=== PATIENT | male | born 1955 | race Caucasian/White ===

== ENCOUNTER 2023-01-15 11:49 | Outpatient (CLI) | payer MEDICARE, SELFPAY ==
[2023-01-15 13:40] LABS: Basophils Percent Auto 0.7 % (0.2-1.2); Eosinophils Percent Auto 0.7 % (0-4.4); Hematocrit 46.7 % (42.0-52.0); Hemoglobin 15.9 g/dL (14.0-18.0); Immature Granulocyte Absolute 0.02 K/mm3 (0.00-0.031); Immature Granulocyte Percent A 0.4 % (0-0.5); Lymphocytes Absolute Auto 1.36 K/mm3 (0.9-3.2); Lymphocytes Percent Auto 25.1 % (18.3-44.2); Mean Corpuscular Hemoglobin 34.4 pg (26-34); Mean Corpuscular Volume 101.1 fl (80-100); Mean Platelet Volume 9.4 fl (7.4-10.4); Monocytes Absolute Auto 0.6 K/mm3 (0.1-0.6); Monocytes Percent Auto 10.7 % (2.6-8.5); Neutrophils Absolute Auto 3.4 K/mm3 (1.3-6.7); Neutrophils Percent Auto 62.4 % (45.5-73.1); Platelet Count Result 155 k/mm3 (150-375); Red Blood Count 4.62 M/mm3 (4.6-6.20); Red Cell Distribution Width 14.2 % (11.5-14.5); White Blood Count 5.4 K/mm3 (4.5-10.0)
[2023-01-15 13:52] LABS: Albumin Level 4.6 g/dL (3.5-5.1); Anion Gap 5 mmol/L (8-16); Blood Urea Nitrogen 18 mg/dL (9-20); Calcium 9.3 mg/dL (8.4-10.2); Carbon Dioxide 29 mmol/L (22-30); Chloride 102 mmol/L (98-107); Estimated Glomerular Filt Rate > 60; Glucose 93 mg/dL (65-110); Hemoglobin A1C 5.7 % (<5.7); Potassium 4.3 mmol/L (3.4-5.0); Sodium 136 mmol/L (137-145)
[2023-01-15 14:42] LABS: Urine Cotinine NEGATIVE
== END 2023-01-15 11:50 | disposition home or self-care (01) ==
LOC: ANHSURGERY 11:55
PROVIDERS: PCP Nurse Practitioner Adult Health; Visit Provider Orthopaedic Surgery
DX: M16.11 Unilateral primary osteoarthritis, right hip (principal); Z01.818 Encounter for other preprocedural examination
CPT/HCPCS: 80048; 80307; 82040; 83036; 85025; 87081

== ENCOUNTER 2023-02-05 01:41 | Day surgery (SDC) | payer MEDICARE, SELFPAY ==
[2023-01-15 12:02] VITALS: BMI 35.0
--- NOTE | 2023-01-15 12:31 | PC.NURSE ---
Addendum entered by Robyn Nava RN 02/01/23 14:53: PT INSTRUCTED TO TAKE NEWLY PRESCRIBED MEDICATIONS, ISOSORBIDE AND METOPROLOL, THE MORNING OF SURGERY WITH A SMALL SIP OF WATER. Original Note: Report to the Outpatient Waiting Room, entrance under the green pavilion located off [facility], at time __0600 on date __02/05/23 . Planned Procedure Time: _0730 . Time changes happen often and if your time is changed the preop area will call you the afternoon before. - You and your visitor will be asked to self-screen and do not enter if you have any COVID symptoms. - A mask is optional within the hospital at this time. Patients may have clear liquids (water, carbonated beverages, clear teas, apple juice) until 3 hours prior to surgery with a maximum of 20 ounces. - No food from midnight until time of surgery - Infants may have breast milk until 4 hours before surgery, formula 6 hours prior to surgery. - Children will be allowed to drink immediately following surgery. If applicable, please bring a bottle or sippy cup to assist with drinking. Juice, water, soda, and popsicles are readily available. For infants on formula, please bring formula the day of surgery. Pacifiers are allowed. Take the following medications with a SIP of water the morning of surgery: __NONE DO NOT STOP ANY OF YOUR OTHER PRESCRIPTION MEDICATIONS PRIOR TO SURGERY ?EXCEPT THE FOLLOWING Medications to discontinue per physician PT STATES ___HOLD TRULICITY, ASPIRIN AND DICLOFENAC 7 DAYS PRE OP PER DR BLOUNT.LAST DOSE 01/28/23 . HOLD VITAMIND AND SUPPLEMENTS__7 DAYS PRE OP PT STATES PER DR BLOUNT.LAST DOSE 01/28/23 Please no make-up, nail bermudian, hairspray, perfume, deodorant, or body powder the day of surgery. No jewelry (including any body piercings) or valuables the day of surgery, leave them at home. Please take a shower or bath the night before, or the morning of, surgery with an antibacterial soap. Wear comfortable, loose fitting clothing. Children are encouraged to wear pajamas. - Jewelry must be removed prior to entering the operating room. Rings and piercings that are not removed may be cut off. - The hospital will not accept responsibility for valuables. - Please leave all valuables, including medications, at home the day of surgery. If you are going home after surgery, a licensed hyster driver must drive you home. - NO public transportation without another adult if you receive anesthesia. - We recommend that an adult stay with you for 24 hours following discharge. - We also recommend that you do not drive, make important decision, drink alcoholic beverages, or take any drugs that were not prescribed by your health care provider for at least 24 hours after your discharge time. For Pediatric surgeries, we recommend two adults accompany the child home. Follow any additional instructions given to you from your surgeon. If you or anyone in your household have experienced Covid symptoms in the past week, please notify your surgeon or the nurse liaison at the phone number below for possible testing. VERBAL AND WRITTEN instructions given to ___PATIENT and asked if any additional questions and then verbalized understanding. Patient advised to call surgeon office or pre surgery nurse liaison [phone] if any additional questions.
[2023-01-15 12:52] VITALS: BP 127/84; PULSE 93; RESP 18; TEMP 37.1; O2SAT 97
--- NOTE | 2023-02-01 14:52 | PC.NURSE ---
Pt called to report two new prescription medications. Home medication list updated. Pt instructed to take isosorbide and metoprolol the morning of surgery with a small sip of water. Pt denies any further questions at this time.
--- NOTE | 2023-02-02 08:41 | PM.IMHP ---
H&P: HPI History of Present Illness Date/Time: 02/02/23 08:41 Chief Complaint: Right hip DJD Narrative: 67-year-old male patient of Dr. Rey who presents today for he right anterior total hip arthroplasty. Patient has been having symptoms in his hip for last year. This point he has severe osteoarthritis with collapse of the femoral head. He has had 2 cortisone injections in the hip the last 1 was in October of this year on the . Patient is also been on diclofenac 75 mg b.i.d.. He has not had improvement from nonsurgical treatment of the hip. He did have blood work done to rule out infection in the hip. His sed rate CRP was normal. At this point patient is having severe pain in the right hip particularly in the groin and the anterior lateral hip. He has rather severe pain with weight-bearing and most daily activities. He has reached a point where he feels he is ready to proceed with total hip arthroplasty at this point. Review of Systems Review of Systems: All systems reviewed & are unremarkable except as noted in HPI and below PMFSH Past Medical History Medical History (Updated 01/24/23 @ 11:00 by Celeste Ibanez APRN) Diabetes HTN (hypertension) Family History Family History (Updated 01/24/23 @ 10:19 by Renate Lazo MA) Father Diabetes mellitus Heart disease Mother Diabetes mellitus Heart disease Sibling Diabetes mellitus Heart disease Social History Social History (Updated 01/24/23 @ 10:22 by Renate Lazo MA) 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 2022 Alcohol intake: current Drinks per week: 12 Alcohol use details: varies Substance use: never Lack of Transportation: No Lack of Food: Never True Current Housing: I Have Housing Concerned About Future Housing: No Difficulty Paying Gas/Electric Bills: No Difficulty Paying for Meds: No Currently Unemployed: No Education: Associate Degree Difficulty w/ Childcare or Family Care: No Living arrangements: with family Occupation/Education: retired Gender identity (if verbalized by the patient): Male Spiritual care concerns: No Agree to blood products: Yes Meds Home Medications and Allergies Home Medications Medication Instructions Recorded Confirmed Type cholecalciferol (vitamin D3) 100 100 mcg PO DAILY 01/15/23 01/15/23 History mcg (4,000 unit) tablet cyanocobalamin (vitamin B-12) 1,000 mcg PO DAILY 01/15/23 01/15/23 History 1,000 mcg tablet dapagliflozin propanediol 5 mg 5 mg PO DAILY 01/15/23 01/15/23 History tablet (Farxiga) diclofenac sodium 75 mg 75 mg PO BID 01/15/23 01/15/23 History tablet,delayed release dulaglutide 1.5 mg/0.5 mL 1.5 mg subcut WEEKLY 01/15/23 01/15/23 History subcutaneous pen injector ([facility] [place]) lisinopril 20 mg tablet 20 mg PO DAILY 01/15/23 01/15/23 History rosuvastatin 20 mg tablet 20 mg PO HS 01/15/23 01/15/23 History testosterone cypionate 200 mg/mL 200 mg IM [id number] 01/15/23 01/15/23 History intramuscular oil isosorbide mononitrate 30 mg 30 mg PO DAILY 02/01/23 02/01/23 History tablet,extended release 24 hr metoprolol tartrate 50 mg tablet 50 mg PO BID 02/01/23 02/01/23 History Allergies Allergy/AdvReac Type Severity Reaction Status Date / Time No Known Allergies Allergy Unverified 01/24/23 10:40 Exam Narrative: 67-year-old male alert pleasant. He is 5 ft 7 239 lb. He walks with a [id number] limp. Skin around the hip and groin crease are normal. His right hip flexes to 110 internal rotation is 0 external rotation to 30. He has anterior lateral groin pain with range of motion. Stinchfield maneuver causes him anterior lateral hip pain. He has normal abduction straight l
[2023-02-05] VITALS (15 sets, daily range): BP systolic 105–124; BP diastolic 56–77; PULSE 68–81; RESP 12–20; TEMP 36.3–36.8; O2SAT 96–100
--- NOTE | ~2023-02-05 | XR_ITS ---
EXAMINATION: XR hip RT 1V w AP pelvis DATE: 02/05/2023 14:52 INDICATION: Right total hip arthroplasty TECHNIQUE: 2 views right hip FINDINGS: There is a right total hip arthroplasty in expected position. Subcutaneous gas with soft t issue swelling are consistent with recent surgery. IMPRESSION: 1. Recent right total hip arthroplasty. Reviewed, dictated and finalized at location B. [facility]
--- NOTE | ~2023-02-05 | XR_ITS ---
EXAMINATION: XR surgery orthopedic DATE: 02/05/2023 11:35 INDICATION: Anterior approach total right hip arthroplasty. TECHNIQUE: A single intraoperative fluoroscopic view of the right hip was obtained. I was not present . Fluoroscopy exposure time was 67 seconds. COMPARISON: None. FINDINGS: There is a total right hip arthroplasty in near-anatomic alignment. No fracture. IMPRESSION: 1. Total right hip arthroplasty in near-anatomic alignment. Reviewed, dictated and finalized at location E. [employer]
[2023-02-05] MEDS: TRANEXAMIC ACID 1,000MG/ISO100 1,000 MG/100 ML BAG 200 MG IVPB (05:07)
--- NOTE | 2023-02-05 06:44 | WPDANESEPPF ---
Anes - Initial Pre Proc Eval Procedure: Operation Date: 02/05/23 07:30 Proposed Procedures p Right Total Hip Arthroplasty Anterior Approach - Ryan Gandara MD Date/Time: 02/05/23 06:44 Surgeon: Ryan Gandara MD Pre Op Diagnosis: right hip oa Patient Data Age: 67 Gender: M Height: 1.73 m Weight: 104.5 kg Last Vital Signs Temp 37.1 C 01/15/23 12:52 Pulse 93 01/15/23 12:52 Resp 18 01/15/23 12:52 BP 127/84 01/15/23 12:52 Pulse Ox 97 01/15/23 12:52 O2 Del Method Room Air 01/15/23 12:52 Allergies Allergy/AdvReac Type Severity Reaction Status Date / Time No Known Allergies Allergy Unverified 01/24/23 10:40 Home Medications Medication Instructions Recorded Confirmed Type cholecalciferol (vitamin D3) 100 100 mcg PO DAILY 01/15/23 01/15/23 History mcg (4,000 unit) tablet cyanocobalamin (vitamin B-12) 1,000 mcg PO DAILY 01/15/23 01/15/23 History 1,000 mcg tablet dapagliflozin propanediol 5 mg 5 mg PO DAILY 01/15/23 02/05/23 History tablet (Farxiga) diclofenac sodium 75 mg 75 mg PO BID 01/15/23 01/15/23 History tablet,delayed release dulaglutide 1.5 mg/0.5 mL 1.5 mg subcut WEEKLY 01/15/23 01/15/23 History subcutaneous pen injector (Trulicity) lisinopril 20 mg tablet 20 mg PO DAILY 01/15/23 02/05/23 History rosuvastatin 20 mg tablet 20 mg PO HS 01/15/23 02/05/23 History testosterone cypionate 200 mg/mL 200 mg IM [id number] 01/15/23 02/05/23 History intramuscular oil isosorbide mononitrate 30 mg 30 mg PO DAILY 02/01/23 02/05/23 History tablet,extended release 24 hr metoprolol tartrate 50 mg tablet 50 mg PO BID 02/01/23 02/05/23 History Patient hx anesthesia problems: none Family hx anesthesia problems: none Results Review: All pre-operative results and documents have been reviewed as part of the pre-operative evaluation. [facility] Past Medical History Medical History (Updated 02/05/23 @ 06:45 by Fred Ellington DO) Diabetes HTN (hypertension) Hyperlipidemia LAURA (obstructive sleep apnea) Family History Family History (Updated 01/24/23 @ 10:19 by Renate Lazo MA) Father Diabetes mellitus Heart disease Mother Diabetes mellitus Heart disease Sibling Diabetes mellitus Heart disease Social History Social History (Updated 01/24/23 @ 10:22 by Renate Lazo MA) 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 2022 Alcohol intake: current Drinks per week: 12 Alcohol use details: varies Substance use: never Lack of Transportation: No Lack of Food: Never True Current Housing: I Have Housing Concerned About Future Housing: No Difficulty Paying Gas/Electric Bills: No Difficulty Paying for Meds: No Currently Unemployed: No Education: Associate Degree Difficulty w/ Childcare or Family Care: No Living arrangements: with family Occupation/Education: retired Gender identity (if verbalized by the patient): Male Spiritual care concerns: No Agree to blood products: Yes Anes - Eval Final PreProcedure Day of Procedure 02/05/23 06:44 Patient weight: obese Heart: regular rate and rhythm Lungs: clear to auscultation Airway: Mallampati scale class II Neurological: alert and oriented Last oral intake: >/= 8 hours ASA classification: III Emergent: no Anesthetic plan: proceed Anesthesia type and monitoring: general ETT and standard monitoring Results Review: All pre-operative results and documents have been reviewed as part of the pre-operative evaluation. Informed Consent: The patient's anesthetic plan and its attendant risks and benefits were discussed with the patient/family/POA. Questions were solicited and answers provided to the satisfaction of the patient
[2023-02-05] MEDS: LACTATED RINGERS 1,000 ML 30 ML IV CONT ×2 (07:00→12:02)
[2023-02-05] MEDS: ACETAMINOPHEN 500 MG TABLET 1000 MG PO ×2 (07:06→17:54)
--- NOTE | 2023-02-05 07:10 | WPDHPUPDATE1 ---
History and Physical Update Update Date/Time: 02/05/23 07:10 History and Physical has been reviewed, including an updated exam of the patient. There are NO changes in the patient's condition. Risks, benefits, and alternatives have been discussed and questions answered. Patient agrees to proceed with procedure.
[2023-02-05 07:14] LABS: Glucose Point of Care 107 mg/dl (65-105)
[2023-02-05] MEDS: ceFAZolin 2 GM/D5W 50 ML 2 GM/50 ML BAG IVPB (07:37)
[2023-02-05] MEDS: ceFAZolin SODIUM 1 GM VIAL 3 GM (08:36)
[2023-02-05] MEDS: TRANEXAMIC ACID 1,000 MG/10 ML AMPUL 1000 MG IV PUSH (11:07)
[2023-02-05] MEDS: ceFAZolin SODIUM 1 GM VIAL 2 GM IV PUSH (11:09)
[2023-02-05] MEDS: KETOROLAC 15 MG/ML VIAL (*BKC) IV PUSH ×2 (11:16→18:47)
--- NOTE | 2023-02-05 11:25 | SUR.OPER ---
cell saver: 375 mls own blood returned to patient
--- NOTE | 2023-02-05 11:57 | W.PM.PROC2 ---
Procedure Note - Detailed Date of Procedure 02/05/23 Pre-op Diagnosis right hip oa, OBESITY BMI of 35 Post-op Diagnosis Same Procedure Performed Direct anterior approach right total hip arthroplasty Surgeon Ryan Gandara MD Environmental Health Inspector Gilberto Anesthesia General Description of Procedure Patient was brought to the operating room and general anesthesia was administered. He received 2 g of Ancef weight based vancomycin and 1 g of TXA. The feet were padded boots applied SCDs applied the calves which are running during the procedure and he was transferred to the [facility]. He had a BMI of greater than 35 which added significant difficulty with the procedure as his obesity was truncal abdominal. This added estimated 45 minutes of time to the procedure due to the added difficulty with exposure. We used 3 in silk tape on the abdomen to gently retract the abdominal pannus. The right hip was prepped draped usual fashion. 10 cm longitudinal incision was made. Dissection was carried down to the fascia of the tensor fascia amado which was longitudinally incised. Interval between TFL and rectus femoris developed. Crossing vessels of ascending lateral femoral circumflex vessels were ligated with suture divided. Retractor was placed anterior capsule hip abducted internally rotated and the gluteus minimus elevated off the lateral capsule. Inverted T capsulotomy was performed femoral neck osteotomy made according to preoperative templating. The femoral head measured 49 mm diameter and was severely worn. S stem was exposed residual labrum excised. The hip was externally rotated and extended. The lateral portion of the posterior capsular flap was excised for exposure and interval between conjoined tendon and piriformis was incised which allowed the piriformis to flipped this was left attached. With the leg back and horizontal position external rotation and traction the acetabulum was prepared. We medialized with a 42 Reamer and reamed up to 51 mm and we could see that the 52 was the proper size. We lightly reamed with the 52 Reamer a 52 trial was snug and fit nicely and fully seated. We chose the 52 mm pinnacle cup which was fully seated with a tight fit. This was at 40? of abduction and anteversion matching his anatomy. A single screw was placed in the ilium was obtained excellent purchase and the 36 inner diameter polyethylene liner fully seated. Anterior acetabular osteophyte was removed this time. The leg was externally rotated extended and we broached up to a size 6. We did not use the table hook which seemed to reduce exposure rather than enhancing it. We trialed. With the size 6 and the +5 head standard offset, the hip seemed to lose and leg lengths suggested we were about a mm long. Provisional planing of the neck was performed. There was a little bit of wiggle on the size 6 broach with torsional stress and we were able to seat the size 7 which was tight. On trialing we trialed with the 8.5 neck and this seemed to lengthen his leg about 4 mm longer than the other side according to the line drawn across the obturator's and the ischial tuberosities on fluoro. We tried the high offset neck with the 1.5 which shortened the construct 4.4 mm and added 3.6 mm of offset and this gave equal leg lengths and offset look more appropriate on fluoro and soft tissue tension was appropriate. He had ample Shuck but it was quite stable. The calcar planing was completed and we impacted the size 7 Actis high offset stem which was difficult to seat the last few mm but did finally seat. There were no cracks in the calcar. We trialed again with the 1.5 and this was appropriate. The ceramic 1.5 x 36 mm head was impacted onto the clean and dried trunnion after thorough irrigation of the wound with antibiotic solution. Hip reduced stability reconfirmed. Capsular flaps were repaired superiorly with 2. Vicryl. Hemostasis was achieved. Total EBL was estimated at 900 cc he steffany
--- NOTE | 2023-02-05 12:08 | PM.OP ---
Procedure Note - Brief Procedure Note - Brief Date of procedure: 02/05/23 right hip oa Procedure performed: Right anterior total hip arthroplasty Surgeon: BALJEET Lombardi Findings: 67-year-old male who underwent right anterior total hip arthroplasty on 02/05. I was involved in the procedure including positioning the patient on the OR table and 1st assisting through the time surgery. Total time spent was 4-1/2 hours
[2023-02-05 12:26] LABS: Glucose Point of Care 192 mg/dl (65-105)
[2023-02-05] MEDS: fentaNYL CITRATE INJ (*CRX) 100 MCG/2 ML VIAL 25 MCG IV PUSH ×4 (12:40→13:00)
--- NOTE | 2023-02-05 14:14 | ADMGEN ---
This patient, Adal Talbot, was admitted to Medical Room 253-01. Patient/family oriented to hospital policies and general routines including ID bracelet, bed and alarms, visiting hours, pain management, procedures, bathroom and other care routines, personal items, smoking policy, room service/diet, and visiting hours. Information on how to activate the Rapid Response Team has been discussed. Patient/Family are encouraged to report perceived risks to care and to ask questions if they do not understand what they are told or what they should do.
[2023-02-05] MEDS: SODIUM CHLORIDE 0.9% IV 1,000 ML 125 ML IV CONT (14:52)
[2023-02-05] MEDS: ASPIRIN 81 MG CHEWABLE TABLET PO (14:53)
--- NOTE | 2023-02-05 16:43 | PM.IMCN ---
Assessment and Plan Assessment and plan (1) Osteoarthritis of right hip: Qualifiers: Osteoarthritis type: primary Qualified Code(s): M16.11 - Unilateral primary osteoarthritis, right hip Code(s): M16.11 - Unilateral primary osteoarthritis, right hip Status: Acute (2) Diabetes: Qualifiers: Diabetes mellitus complication status: without complication Diabetes mellitus retirement insulin use: without retirement use Diabetes mellitus type: type 2 Qualified Code(s): E11.9 - Type 2 diabetes mellitus without complications Code(s): E11.9 - Type 2 diabetes mellitus without complications Status: Acute (3) HTN (hypertension): Qualifiers: Hypertension type: primary hypertension Qualified Code(s): I10 - Essential (primary) hypertension Code(s): I10 - Essential (primary) hypertension Status: Acute (4) Hyperlipidemia: Qualifiers: Hyperlipidemia type: unspecified Qualified Code(s): E78.5 - Hyperlipidemia, unspecified Code(s): E78.5 - Hyperlipidemia, unspecified Status: Acute Plan Problem List 1. osteoarthritis of right hip s/p right anterior total hip arthroplasty, 02/05 continue management with orthopedic team 2. diabetes hypoglycemia protocol POC blood glucose ACHS home medication resumed/held - Farxiga and Trulicity, may take home Trulicity once pharmacy verifies. correct regimen ordered - low dose TIDWM and HS A1C 5.7 on 01/15/23 3. HTN imdur and metoprolol continued lisinopril held, assess tomorrow for reinitiation. BP currently borderline low. continue to monitor BP 4. hyperlipidemia continue home rosuvastatin Home Meds/Chronic Conditions - held 5 in B12, diclofenac, lisinopril, testosterone IM Diet: regular GI Prophylaxis: famotidine DVT Prophylaxis: SCDs, start Eliquis tomorrow. Lines: pIV Code Status: Full Code Billing/Codin, consult HPI Date of Consult Consult date: 02/05/23 Requesting Physician: Ryan Gandara MD Primary Care Provider: Celeste Ibanez APRN Consult Narrative Reason for consult: Medical Managment Narrative: Adal Talbot is a 67 year old male presented here for R anterior total hip arthroplasty with PMH of DM, HTN, and dyslipidemia. Patient had right anterior total hip arthroplasty performed today 02 05. Patient had severe osteoarthritis in affected hip with collapse femoral head. Conservative management was attempted: two cortisone injections and daily diclofenac. patient reports the diclofenac gave partial resolution of pain, but despite the medications the pain continued with weight-bearing exercises and ADLs. He then elected to proceed with surgical management, no immediate post-operative complications. he reports that he has had drastic improvement in his total cholesterol and A1c in the last year. Most recent A1c was 5.7 and his total cholesterol has been reduced to 179. Currently on Farxiga and Trulicity. He has been able to lose 60 lb in the last year between a drastic diet change and the Trulicity. He reports no complications with his current medication regimen. No other complaints. Review of Systems Review of Systems: All systems reviewed & are unremarkable except as noted in HPI and below PMFSH Past Medical History Medical History Diabetes HTN (hypertension) Hyperlipidemia LAURA (obstructive sleep apnea) Surgical History Surgical History History of appendectomy History of arthroscopy of left knee History of carpal tunnel release of both wrists Family History Family History Father Diabetes mellitus Heart disease Mother Diabetes mellitus Heart disease Sibling Diabetes mellitus Heart disease Social History Social History (Updated 02/05/23 @
[2023-02-05 17:51] LABS: Glucose Point of Care 240 mg/dl (65-105)
[2023-02-05] MEDS: SENNA/DOCUSATE SODIUM TABLET 2 TAB PO (17:53)
[2023-02-05] MEDS: ceFAZolin 1 GM/NS 50 ML 1 GM/50 ML BAG IVPB (17:54)
[2023-02-05] MEDS: oxyCODONE HCL (*CRX) 5 MG TAB IR PO ×2 (17:54→20:28)
[2023-02-05] MEDS: INSULIN ASPART (*BKC) 100 UNITS/ML SUB-Q (17:59)
[2023-02-05] MEDS: VANCOMYCIN 1,000 MG/NS 250 ML 1,000 MG/250 ML BAG 250 MG IVPB (18:52)
[2023-02-05] MEDS: FAMOTIDINE 20 MG TABLET PO (20:28)
[2023-02-05] MEDS: METOPROLOL TARTRATE 50 MG TAB PO (20:28)
[2023-02-05] MEDS: ROSUVASTATIN 20 MG TABLET PO (20:28)
[2023-02-05 20:52] LABS: Glucose Point of Care 178 mg/dl (65-105)
[2023-02-06] MEDS: ACETAMINOPHEN 500 MG TABLET 1000 MG PO ×3 (00:01→11:56)
[2023-02-06] MEDS: oxyCODONE HCL (*CRX) 5 MG TAB IR PO ×4 (00:01→13:10)
[2023-02-06] MEDS: KETOROLAC 15 MG/ML VIAL (*BKC) IV PUSH (00:01)
[2023-02-06] MEDS: ceFAZolin 1 GM/NS 50 ML 1 GM/50 ML BAG IVPB ×2 (00:02→10:20)
[2023-02-06 02:30] VITALS: PULSE 75; O2SAT 98
[2023-02-06 03:22] VITALS: BP 90/42; PULSE 70; RESP 18; TEMP 36.6; O2SAT 95
[2023-02-06 06:15] LABS: Basophils Percent Auto 0.3 % (0.2-1.2); Eosinophils Percent Auto 0.6 % (0-4.4); Hematocrit 35.7 % (42.0-52.0); Immature Granulocyte Absolute 0.04 K/mm3 (0.00-0.031); Immature Granulocyte Percent A 0.6 % (0-0.5); Lymphocytes Absolute Auto 0.94 K/mm3 (0.9-3.2); Lymphocytes Percent Auto 13.6 % (18.3-44.2); Mean Corpuscular HGB Conc 33.6 g/dl (32-36); Mean Corpuscular Hemoglobin 35.6 pg (26-34); Mean Corpuscular Volume 105.9 fl (80-100); Mean Platelet Volume 9.7 fl (7.4-10.4); Monocytes Absolute Auto 0.8 K/mm3 (0.1-0.6); Monocytes Percent Auto 10.9 % (2.6-8.5); Neutrophils Absolute Auto 5.1 K/mm3 (1.3-6.7); Platelet Count Result 123 k/mm3 (150-375); Red Blood Count 3.37 M/mm3 (4.6-6.20); Red Cell Distribution Width 14.3 % (11.5-14.5); White Blood Count 6.9 K/mm3 (4.5-10.0)
[2023-02-06 06:21] LABS: Anion Gap 8 mmol/L (8-16); Blood Urea Nitrogen 29 mg/dL (9-20); Calcium 7.7 mg/dL (8.4-10.2); Carbon Dioxide 24 mmol/L (22-30); Chloride 104 mmol/L (98-107); Estimated CRCL calculation 83 ml/min; Estimated Glomerular Filt Rate > 60; Glucose 150 mg/dL (65-110); Potassium 4.1 mmol/L (3.4-5.0); Sodium 136 mmol/L (137-145)
--- NOTE | 2023-02-06 07:21 | PM.IMPN ---
Progress Note: A&P Assessment and Plan (1) Osteoarthritis of right hip: Qualifiers: Osteoarthritis type: primary Qualified Code(s): M16.11 - Unilateral primary osteoarthritis, right hip Code(s): M16.11 - Unilateral primary osteoarthritis, right hip Status: Acute Assessment and Plan: 1. osteoarthritis of right hip s/p right anterior total hip arthroplasty, 02/05 continue management with orthopedic team (2) Diabetes: Qualifiers: Diabetes mellitus type: type 2 Diabetes mellitus skilled nursing insulin use: without skilled nursing use Diabetes mellitus complication status: without complication Qualified Code(s): E11.9 - Type 2 diabetes mellitus without complications Code(s): E11.9 - Type 2 diabetes mellitus without complications Status: Acute Assessment and Plan: 2. diabetes hypoglycemia protocol POC blood glucose ACHS home medication resumed/held - Farxiga and Trulicity, may take home Trulicity once pharmacy verifies. correct regimen ordered - low dose TIDWM and HS A1C 5.7 on 01/15/2302/06: Blood glucose has been ranging 190-240 prior to starting SSI. Will see how his blood sugars do today. May need lantus at HS while inpatient. (3) HTN (hypertension): Qualifiers: Hypertension type: primary hypertension Qualified Code(s): I10 - Essential (primary) hypertension Code(s): I10 - Essential (primary) hypertension Status: Acute Assessment and Plan: . HTN imdur and metoprolol continued lisinopril held, assess tomorrow for reinitiation. BP currently borderline low. continue to monitor BP 02/05: Blood pressures are still borderline low. BP this morning 90/42, HR 70. Continue to hold lisinopril. (4) Hyperlipidemia: Qualifiers: Hyperlipidemia type: unspecified Qualified Code(s): E78.5 - Hyperlipidemia, unspecified Code(s): E78.5 - Hyperlipidemia, unspecified Status: Acute Assessment and Plan: 4. hyperlipidemia continue home rosuvastatin Plan Diet: regular GI Prophylaxis: famotidine DVT Prophylaxis: SCDs, start Eliquis tomorrow. Lines: pIV Code Status: Full Code Subjective Date/time seen: 02/06/23 07:21 Interval history: HPI obtained from the chart, Adal Talbot is a 67 year old male presented here for R anterior total hip arthroplasty with PMH of DM, HTN, and dyslipidemia. Patient had right anterior total hip arthroplasty performed today 02 05.? Patient had severe osteoarthritis in affected hip with collapse femoral head.? Conservative management was attempted: two cortisone injections and daily diclofenac.? patient reports the diclofenac gave partial resolution of pain, but despite the medications the pain continued with weight-bearing exercises and ADLs. ? He then elected to proceed with surgical management, no immediate post-operative complications. he reports that he has had drastic improvement in his total cholesterol and A1c in the last year.? Most recent A1c was 5.7 and his total cholesterol has been reduced to 179.? Currently on Farxiga and Trulicity. ? He has been able to lose 60 lb in the last year between a drastic diet change and the Trulicity.? He reports no complications with his current medication regimen. No other complaints. Review of Systems Review of Systems: All systems reviewed & are unremarkable except as noted in HPI and below Exam Narrative: General: well appearing, well developed, well nourished, appears stated age. HEENT: normocephalic, atraumatic. Mucous membranes moist. EOMI, PERRLA, bilateral sclera anicteric, no conjunctival injection. Neck supple without JVD, lymphadenopathy, or bruit. Respiratory: clear to ascultation bilaterally. No rales/rhonic/wheezes. Cardiovascular: Regular rate and rhythm, normal S1-S2 upon ascultation. No murmurs, rubs, or clicks. PMI is nondisplaced, capillary re-fill less than 3 second. Abdomen: Soft, flat, no pulsa
--- NOTE | 2023-02-06 07:32 | PM.PNORT ---
Progress Note: A&P Assessment and Plan (1) Status post total hip replacement, right: Code(s): Z96.641 - Presence of right artificial hip joint Status: Acute Plan Patient is postop day 1 status post right total hip arthroplasty. He is doing well. He will be discharged home later today good condition we discussed in detail today elevating his legs above his heart following hip precautions we went over his postoperative medications and we talked about the fact that he needs to get up and move around every hour so during the day use a walker for support we discussed weight-bearing status and follow up with Dr. Gandara as instructed. He is to call the office immediately for any problems difficulties or questions. The patient voiced understanding and agrees with the above plan. See discharge orders and discharge summary for complete plan. Subjective Subjective Date/Time Seen: 02/06/23 07:32 Interval history: Postop day 1 status post right total hip arthroplasty doing well feeling well. Has no complaints postoperative complications. Pain is well controlled. He was able to get up and ambulate and therapy last night did well. He feels as though he is ready for discharge to home later today. Review of Systems Review of Systems: Ten point review of systems negative Exam Narrative: Vital signs are stable he is afebrile neurovascular the patient is intact wound is clean and dry calves are benign. He is alert oriented x3. Normal mood and affect. Tolerating p.o. well. No other complaints. Objective Data Vital Signs Vital Signs: Vital Signs - 24 hr 02/05/23 12:02 02/05/23 12:15 02/05/23 12:30 Temperature 36.7 C Pulse Rate 81 75 70 Respiratory Rate 20 18 12 Blood Pressure 113/60 121/77 111/68 Pulse Oximetry 97 97 97 Oxygen Delivery Simple Face Mask Room Air Room Air Oxygen Flow Rate 6 02/05/23 12:45 02/05/23 13:00 02/05/23 13:14 Temperature Pulse Rate 73 72 68 Respiratory Rate 12 12 12 Blood Pressure 119/63 117/67 117/67 Pulse Oximetry 98 99 99 Oxygen Delivery Room Air Room Air Nasal Cannula Oxygen Flow Rate 2 02/05/23 14:57 02/05/23 14:15 02/05/23 13:37 Temperature 36.3 C L Pulse Rate 69 Respiratory Rate 16 Blood Pressure 114/63 Pulse Oximetry 100 Oxygen Delivery Room Air Room Air Oxygen Flow Rate 02/05/23 13:52 02/05/23 14:22 02/05/23 15:22 Temperature 36.6 C 36.6 C 36.4 C Pulse Rate 71 68 72 Respiratory Rate 16 16 16 Blood Pressure 119/56 L 124/61 118/65 Pulse Oximetry 99 97 97 Oxygen Delivery Oxygen Flow Rate 02/05/23 19:22 02/05/23 20:28 02/05/23 23:22 Temperature 36.8 C 36.4 C L Pulse Rate 81 80 77 Respiratory Rate 18 18 Blood Pressure 107/57 L 105/60 Pulse Oximetry 97 96 Oxygen Delivery Oxygen Flow Rate 02/05/23 22:30 02/06/23 02:30 02/06/23 03:22 Temperature 36.6 C Pulse Rate 80 75 70 Respiratory Rate 18 Blood Pressure 90/42 L Pulse Oximetry 97 98 95 Oxygen Delivery Oxygen Flow Rate Intake/Output Intake/Output: Intake & Output 02/03/23 02/04/23 02/05/23 02/06/23 23:59 23:59 23:59 23:59 Intake Total 1490 50 Output Total 10 150 Balance 1480 -100 Meds/Results Medications: Active Medications Generic Name Dose Route Start Last Admin Trade Name Freq PRN Reason Stop Dose Admin Acetaminophen 1,000 mg 02/05/23 18:00 02/06/23 05:08 Acetaminophen 500 Mg Tablet PO 1,000 mg Q6HR [facility] Administration Apixaban 2.5 mg 02/06/23 09:00 Apixaban 2.5 Mg Tablet PO 03/12/23 21:01 Q12HR [facility] Aspirin 81 mg 02/06/23 08:00 Aspirin 81 Mg Chewable Tablet PO DAILY@0800 [facility] Cefdinir 300 mg 02/06/23 14:00 Cefdinir 300 Mg Capsule PO Q12HR [facility] Celecoxib 200 mg 02/06/23 09:00 Celecoxib 200 Mg Capsule PO DAILY [facility] Dextrose 12.5 gm 02/05/23 16:55 Dextrose 50% 25 Gm/50 Ml Syringe IV PUSH PRN PRN Hypoglycemia Protocol Empagl
[2023-02-06 08:21] VITALS: BP 95/58; PULSE 70; O2SAT 95
[2023-02-06] MEDS: CHOLECALCIFEROL 1,000 UNITS TABLET 1000 UNITS PO (08:23)
[2023-02-06] MEDS: EMPAGLIFLOZIN 10 MG TABLET BY MOUTH (08:23)
[2023-02-06] MEDS: CELECOXIB 200 MG CAPSULE PO (08:23)
[2023-02-06] MEDS: FAMOTIDINE 20 MG TABLET PO (08:23)
[2023-02-06] MEDS: APIXABAN 2.5 MG TABLET PO (08:23)
[2023-02-06] MEDS: VANCOMYCIN 1,000 MG/NS 250 ML 1,000 MG/250 ML BAG 250 MG IVPB (08:24)
[2023-02-06] MEDS: ISOSORBIDE MONONITRATE 30 MG TAB.ER.24H PO (08:24)
[2023-02-06] MEDS: ASPIRIN 81 MG CHEWABLE TABLET PO (08:24)
[2023-02-06] MEDS: SENNA/DOCUSATE SODIUM TABLET 2 TAB PO (08:24)
[2023-02-06] MEDS: polyethylene glycoL 3350 17 GM POWD.PACK PO (08:25)
[2023-02-06 08:42] LABS: Glucose Point of Care 157 mg/dl (65-105)
--- NOTE | 2023-02-06 09:19 | PM.DS ---
DS: Admitting Diagnosis Discharge Date discharge date 02/06/2023 Admitting Diagnosis admitting diagnosis severe primary osteoarthritis right hip joint discharge diagnosis same status post right total hip arthroplasty DS: Summary Hospital Course Hospital Course: the patient was admitted on 02/05/2023 status post right total hip arthroplasty performed by Dr. Gandara. postoperatively the patient was stable had no complications from his surgery. He was up in the chair in the evening ambulated with a walker with the therapist. Tolerated p.o. well pain was well controlled overnight. Postop day 1 he was doing quite well no postoperative complications noted. Vital signs were stable he was afebrile neurovascularly intact wound clean and dry calves benign. He was alert oriented x3. Normal mood and affect. The patient was up ambulating independently with a walker. He will be discharged today, he was instructed to keep his leg elevated above his heart as much as possible not to sit in the chair with his leg hanging down. He was to be up every hour ambulating with a walker weight-bearing as tolerated and pump his calves and feet hourly to prevent DVT. He was see Dr. Gandara back in 2 weeks for wound recheck. The patient was to be discharged on Celebrex 200 mg daily for 10 days Eliquis 2.5 mg b.i.d. times 70 doses. Oxycodone 5 mg every 4 hours for pain along with Tylenol 1000 mg every 6 hours on a scheduled basis as well. He was to be given MiraLax packets to take daily for 30 days also docusate Senokot 2 pills b.i.d. for 30 days to help with constipation. He was discharged with Omnicef 300 mg b.i.d. times 10 days he will change dressing daily could remove it to shower daily keep the wound clean and dry w for evidence of drainage or infection. He will use a walker at all times follow the discharge instructions and hip precautions as noted per physical therapy. The patient was to call the office immediately for any problems difficulties or questions he and his voiced understanding and agree with the above plan. He was discharged on a general diet in stable condition to home with his . he was also instructed to resume home medications and avoid other nonsteroidal anti-inflammatories while on the Celebrex and Eliquis. Time Spent with Patient Time attestation: Total time spent providing and/or coordinating discharge services: Exam Narrative: Vital signs stable afebrile neurovascularly intact cast benign wound clean and dry alert oriented x3. Normal mood and affect. Tolerating p.o. well. DS: Data Data Completed and Pending Labs on day of discharge: Labs from last 24 hours 02/06/23 02/06/23 02/05/23 08:34 05:28 20:49 WBC 6.9 RBC 3.37 L Hgb 12.0 L D Hct 35.7 L MCV 105.9 H MCH 35.6 H MCHC 33.6 RDW 14.3 Plt Count 123 L MPV 9.7 Immature Gran % (Auto) 0.6 H Neut % (Auto) 74.0 H Lymph % (Auto) 13.6 L Webb % (Auto) 10.9 H Eos % (Auto) 0.6 Baso % (Auto) 0.3 Lymph # (Auto) 0.94 Webb # (Auto) 0.8 H Eos # (Auto) 0.0 Baso # (Auto) 0.0 Abs Immat Gran (auto) 0.04 H Absolute Neuts (auto) 5.1 Absolute Nucleated RBC 0.0 Nucleated RBC % 0.0 Sodium 136 L Potassium 4.1 Chloride 104 Carbon Dioxide 24 Anion Gap 8 BUN 29 H D Creatinine 0.90 Estim Creat Clear Calc 83 Estimated GFR > 60 Glucose 150 H POC Capillary Glucose 157 H 178 H Calcium 7.7 L 02/05/23 02/05/23 17:48 12:23 WBC RBC Hgb Hct MCV MCH MCHC RDW Plt Count MPV Immature Gran % (Auto) Neut % (Auto) Lymph % (Auto) Webb % (Auto) Eos % (Auto) Baso % (Auto) Lymph # (Auto) Webb # (Auto) Eos # (Auto) Baso # (Auto) Abs Immat Gran (auto) Absolute Neuts (auto) Absolute Nucleated RBC Nucleated RBC % Sodium Potassium Chloride Carbon Dioxide Anion Gap BUN Creatinine Estim Creat Clear Johnson
[2023-02-06 09:21] VITALS: PULSE 70
[2023-02-06 11:52] LABS: Glucose Point of Care 136 mg/dl (65-105)
[2023-02-06 12:48] VITALS: BP 98/54; PULSE 79; RESP 18; TEMP 36.4; O2SAT 96
[2023-02-06] MEDS: CEFDINIR 300 MG CAPSULE PO (13:10)
== END 2023-02-06 13:40 | disposition home or self-care (01) ==
LOC: ANHSURGERY 06:08 → ANH2MED 13:45
PROVIDERS: Physician Assistant Surgical; PCP Nurse Practitioner Adult Health; Visit Provider Orthopaedic Surgery
PROC: (CPT 27130; principal; 2023-02-05 07:30)
DX: M16.11 Unilateral primary osteoarthritis, right hip (principal); E66.9 Obesity, unspecified; Z68.35 Body mass index [BMI] 35.0-35.9, adult; E11.9 Type 2 diabetes mellitus without complications; I10 Essential (primary) hypertension; Z87.891 Personal history of nicotine dependence; E78.5 Hyperlipidemia, unspecified
CPT/HCPCS: 27130; 36415; 73501; 80048; 80307; 82040; 82948; 83036; 85025; 86850; 86900; 86901; 87081; 97110; 97116; 97161; 97165; 97530; 97535; 99199; A9270; C1776; J0171; J0330; J0690; J1100; J1170; J1815; J1885; J2250; J2270; J2371; J2405; J2704; J2795; J3010; J3370; J7030; J7040; J7120

== ENCOUNTER 2023-08-03 08:24 | Outpatient (CLI) | payer MEDICARE, SELFPAY ==
--- NOTE | ~2023-08-03 | US_ITS ---
Limited Abdominal Sonogram: Real-time sonographic imaging of the right upper quadrant was performed. Clinical History: Abnormal serum enzyme levels Findings: The liver appears normal with no evidence of mass lesion or bile duct dilatation. Main por ethan vein demonstrates normal direction of flow. The gallbladder is well distended, and appears normal with no evidence of gallstone or wall thickening. The common bile duct measures 5 mm. The visualize d pancreas, aorta, and IVC are unremarkable. Impression: No significant abnormality seen. Reviewed, dictated and finalized at location M. Impression: No significant abnormality seen.
== END 2023-08-03 08:25 ==
LOC: GOSHIMG 08:25
PROVIDERS: PCP Nurse Practitioner Adult Health; Visit Provider Nurse Practitioner Adult Health
DX: R74.8 Abnormal levels of other serum enzymes (principal)
CPT/HCPCS: 76705

== ENCOUNTER 2023-08-09 14:29 | Emergency (ER) | payer MEDICARE, SELFPAY ==
[2023-08-09 14:49] VITALS: BP 126/72; PULSE 86; RESP 18; TEMP 36.3; O2SAT 95
[2023-08-09] MEDS: TETANUS,DIPHTHERIA,AC PERTUSSIS ADULT (0.5 ML) BOOSTRIX IM (17:21)
--- NOTE | 2023-08-09 18:39 | ED.WOUNDLAC ---
HPI - Wound/Laceration General Chief Complaint: Wound/Laceration Stated Complaint: lac Time Seen by Provider: 08/09/23 17:07 Source: patient Mode of arrival: ambulatory Limitations: no limitations History of Present Illness HPI narrative: This is a 67-year-old male that presents to the emergency department for laceration sustained just prior to arrival. Reports he was reaching into a tool box and accidentally cut his finger on a blade. Reports bleeding and pain to the area. He is not up-to-date on his tetanus vaccination. Denies decreased range of motion or numbness. Related Data Home Medications Medication Instructions Recorded Confirmed cholecalciferol (vitamin D3) 100 100 mcg PO DAILY 01/15/23 07/25/23 mcg (4,000 unit) tablet cyanocobalamin (vitamin B-12) 1,000 mcg PO DAILY 01/15/23 07/25/23 1,000 mcg tablet dapagliflozin propanediol 5 mg 5 mg PO DAILY 01/15/23 07/25/23 tablet (Farxiga) isosorbide mononitrate 30 mg 30 mg PO DAILY 02/01/23 07/25/23 tablet,extended release 24 hr metoprolol tartrate 50 mg tablet 50 mg PO BID 02/01/23 07/25/23 aspirin 81 mg tablet,delayed 81 mg PO DAILY 06/25/23 07/25/23 release (Adult Aspirin Regimen) diclofenac sodium 75 mg 75 mg PO .qd PRN pain 07/25/23 07/25/23 tablet,delayed release ezetimibe 10 mg tablet 10 mg PO DAILY 07/25/23 07/25/23 Allergies Allergy/AdvReac Type Severity Reaction Status Date / Time No Known Allergies Allergy Verified 07/25/23 10:27 Review of Systems Review of Systems: CONSTITUTIONAL: Denies fever SKIN: Reports laceration NEUROLOGIC: Denies numbness All systems reviewed & are unremarkable except as noted in HPI and below PMFSH Past Medical History Medical History Diabetes Hip replacement planned HTN (hypertension) Hyperlipidemia LAURA (obstructive sleep apnea) Surgical History Surgical History History of appendectomy History of arthroscopy of left knee History of carpal tunnel release of both wrists Family History Family History Father Diabetes mellitus Heart disease Mother Diabetes mellitus Heart disease Sibling Diabetes mellitus Heart disease Social History Social History Social History: Currently lives at home with his . Surrogate decisionmaker: Swapnil Talbot, spouse. Code Status: Full Code. 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 2022 Alcohol intake: never Drinks per week: 12 Alcohol use details: varies Substance use: never Lack of Transportation: No Lack of Food: Never True Current Housing: I Have Housing Concerned About Future Housing: No Difficulty Paying Gas/Electric Bills: No Difficulty Paying for Meds: No Currently Unemployed: No Education: Associate Degree Difficulty w/ Childcare or Family Care: No Living arrangements: with family Occupation/Education: retired Gender identity (if verbalized by the patient): Male Spiritual care concerns: No Agree to blood products: Yes Exam Narrative: GENERAL: Well-appearing, well-nourished, and in no acute distress. HEAD: Normocephalic, atraumatic. EYES: EOMI. EXTREMITIES: Normal range of motion. No edema or obvious deformity. Normal capillary refill. Normal sensation. Right 4th finger with 1.5 cm linear laceration into subcutaneous tissue over the distal phalanx palmar surface SKIN: Warm, dry, no rash. NEURO: No focal deficits. Alert and oriented x3. PSYCH: Normal mood and affect Course Course Emergency Course: Patient agrees with plan of care
== END 2023-08-09 19:11 | disposition home or self-care (01) ==
PROVIDERS: Emergency Provider Physician Assistant; PCP Nurse Practitioner Adult Health
DX: S61.214A Laceration without foreign body of right ring finger without damage to nail, initial encounter (principal); Z23 Encounter for immunization; I10 Essential (primary) hypertension; E78.5 Hyperlipidemia, unspecified; E11.9 Type 2 diabetes mellitus without complications; G47.33 Obstructive sleep apnea (adult) (pediatric); Z87.891 Personal history of nicotine dependence; Z79.82 Long term (current) use of aspirin; Z79.899 Other long term (current) drug therapy; Z79.85 Long-term (current) use of injectable non-insulin antidiabetic drugs; W26.8XXA Contact with other sharp object(s), not elsewhere classified, initial encounter
CPT/HCPCS: 12001; 90471; 90715; 99283

== ENCOUNTER 2024-07-23 15:14 | Day surgery (SDC) | payer MEDICARE, SELFPAY ==
[2024-07-23] VITALS (9 sets, daily range): BP systolic 113–128; BP diastolic 60–83; PULSE 72–79; RESP 16–18; TEMP 36.6; O2SAT 97–100
--- NOTE | ~2024-07-23 | XR_ITS ---
CHEST RADIOGRAPH, PA AND LATERAL CLINICAL HISTORY: food bolus . COMPARISON: None TECHNIQUE: PA and lateral views of the chest. FINDINGS The cardiomediastinal silhouette is unremarkable. The lungs are clear. IMPRESSION: No focal infiltrate or effusion. Reviewed, dictated and finalized at location A.
--- OUTSIDE RECORDS SUMMARY | 2024-07-23 15:19 | XMS_ITS | Data Portability ---
Author Organization [place] [facility], Main Office Address [address] [place] [address] Care Team Providers Care Residential Direct Support Professional Name Role Phone SOO ORELLANA Primary Care Provider SOO ORELLANA Referring Provider Assessment Encounter Date Assessment Date Assessment LastModified by Organization Details LastModified Time 11/30/2022 11/30/2022 Impression: Patient has advanced osteoarthritis of the right hip. MRI scan shows no evidence of acute insufficiency fracture and I suspect that the appearance of collapse of the superior femoral head is due to where the superior acetabulum into the femoral head where he has [id number] change. This represents rapid progression since the his x-ray from 10/31/2021 showed only very mild degenerative changes. His C-reactive protein and sedimentation rate are both normal which makes the likelihood of occult infection in his right hip very low. Patient would like to proceed with hip replacement surgery. We are going to wait until January so he will be a minimum of 3 months out from his cortisone injection Into the right hip. I have discussed risks of surgery with him in detail. I discussed my preference for using the direct anterior approach. I explained that there will be some numbness around the incision. We discussed the risk of infection. I explained that we would want him to take antibiotics before dental work in the future. He is at some increased risk for infection because of his diabetes and his obesity. His last BMI was 37.4. Will plan to use oral antibiotics for 2 weeks after surgery to mitigate the increased risk. He states he has a history of a reaction is some antibiotic but does not know what it was unfortunately. He does not know how we can find out either. I discussed the risk of blood clots. He does have a strong family history of DVT and his obesity also increases his risk. I discussed my preference for using Eliquis for 5 weeks after surgery for DVT prophylaxis. 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 He will need to stop his diclofenac 7 days before surgery. He will also need to stop his Trulicity for 7 days before surgery and discuss diabetes control during that time with Dr. Ying while he is off the Trulicity. I explained that if he does not stop the Trulicity 7 days before surgery his stomach may be full of food contents increasing risk of aspiration during surgery. I have discussed the risk of leg length discrepancy, fracture, component loosening or breakage or where necessitating revision surgery, bleeding and risk for transfusion, nerve injury, I explained that though be numbness around the incision. Risk of medical complications such as heart attack stroke pulmonary embolism and were reviewed. He does have risk factors for underlying coronary artery disease and I would recommend that he see a expert witness before surgery for cardiac risk assessment. His risk factors include diabetes, extreme obesity, history of extremely high lipids, smoking, and strong family history his father having 4 bypass grafts at age 72. We will proceed as discussed. Patient was provided with walker and front wheels today. 40 minutes were spent in total care this patient more than half the time spent in [id number] care. Not available 12/03/2022 12:19:12 02/19/2023 02/19/2023 HPI: Patient returns. He is here for follow-up of his right anterior total hip arthroplasty. He is 13 days out. He is on his Eliquis. He has finished up his antibiotics as well as Celebrex. He is weight-bearing as tolerated but we are having him use a walker for the 1st month. Physical exam: Patient's incision is well healed. He has some swelling proximal thigh. No swelling in either lower extremity. Impression: Patient is doing well 13 days out right anterior total hip arthroplasty. He will continue with the walker to we see him back in 2 weeks. Continue with Eliquis. He is only taking the oxycodone occasionally and taking Tylenol as needed. If he feels he needs more oxycodone will call otherwise we will see him in 2 weeks with x-rays hip. Not available 02/19/2023 18:14:53 03/08/2023 03/08/2023 patient returns. He is now 4 weeks out after right total hip arthroplasty. He states that his right hip feels fine. If he does repetitive hip flexion exercises he feels some mild medial groin pain. I advised him that that is a common issue and it would be best for him to avoid repetitive hip flexion exercises but focus more on walking for exercise. The the iliopsoas is retracted during the direct anterior approach and may remain a little bit irritable and susceptible to irritation for a few months. His chief complaint is pain in the right sacroiliac joint area. He has a long history of problems with his lower back hurting he had an MRI scan of his lower back in October of 2021 in fact. The it is difficult to know whether the pain is coming from his SI joint or referred from his lower back. I looked at the MRI scan of his right hip from November 21 and I did not appreciate any abnormalities of the sacroiliac joint that time. Patient will continue with the Eliquis. He has approximately 7 more days remaining. After he finishes with the Eliquis he could start his diclofenac again which will likely help his lower back arthritic symptoms. He would like to try some physical therapy for back stabilization exercises also we will prescribe these. We would like to go back to the interventional pain consults were he has been to physical therapy for his back in the past. The I will see him back in 1 month to assess his progress. If any changes occur in the meantime he will call. Not available 03/13/2023 20:54:17 04/05/2023 04/05/2023 HPI: Patient returns. He is 2 months out from right anterior total hip arthroplasty. Is doing much better. He has been doing some therapy back. He is back on his diclofenac since he stopped his Eliquis and he is feeling much better he states. This point he is having no real symptoms either in his hip or his back. Physical exam: Patient is walking very well today. He has no limp. He is walking very naturally. Impression: Patient is doing very well 2 months out right anterior total hip arthroplasty. Long-term risk of infection was discussed. At this point he can continue to increase activities as tolerated. We will see him back at his 1 year follow-up with x-rays. Not available 04/05/2023 09:53:10 Plan of Treatment Reminders Order Date Submit Date Provider Last Modified By Organization Details Last Modified Time Details Appointments None recorded. Lab None recorded. Referral physical therapist referral - SEE ATTACHED ORDER 2022 023 [email or web address] [facility], [address], [place], [address], 4 11:37:52 Procedures None recorded. Surgeries None recorded. Imaging XR, hip + pelvis, unilatera l 2022 023 [email or web address] [facility], [address], [place], [address], 3 15:02:44 Medication Orders None recorded. Patient TargetsNo targets recorded. Patient InstructionsNo instructions recorded. Reason for Referral Physical Therapist Referral for Low back pain SEE ATTACHED ORDER Referring Physician: Ryan Gandara, Orthopedic Surgery, Encounter Date: 03/08/2023 Results Created Date Observation Date Name Description Value Unit Range Abnormal Flag Note LastModifiedBy Organization Detail LastModifiedTime 11/24/1911/24/2022 CBC, PLATE LET, NO DIFFE RENTI AL WBC 5.6 x10e3 /uL 3.4-10 .8 Not Available [facility] ([facility]) [address] [facility], [place], [address], 11/24/2022 05:09:25 11/24/1911/24/2022 CBC, PLATE LET, NO DIFFE RENTI AL RBC 4.99 x10e6 /uL 4.14-5 .80 CBC resul ts repor mary were obtai allie after the speci men had been warme d to 37 degre es C. This may indic ate the prese nce of Cold Agglu tinin s. Not Available [facility] ([facility]) [address] [facility], [place], [address], 11/24/2022 05:09:25 11/24/1911/24/2022 CBC, PLATE LET, NO DIFFE RENTI AL hemoglobin 16.8 g/dL 13.0-1 7.7 Not Available [facility] ([facility]) [address] [facility], [place], [address], 11/24/2022 05:09:25 11/24/19 23 11/24/2022 CBC, PLATE LET, NO DIFFE RENTI AL hematocrit 50.2 % 37.5-5 1.0 Not Available [facility] ([facility]) [address] [facility], [place], [address], 11/24/2022 05:09:25 11/24/1911/24/2022 CBC, PLATE LET, NO DIFFE RENTI AL MCV 101 fL 79-97 above high normal Not Available [facility] ([facility]) [address] [facility], [place], [address], 11/24/2022 05:09:25 11/24/1911/24/2022 CBC, PLATE LET, NO DIFFE RENTI AL MCH 33.7 pg 26.6-3 3.0 above high normal Not Available [facility] ([facility]) [address] [facility], [place], [address], 11/24/2022 05:09:25 11/24/19 23 11/24/2022 CBC, PLATE LET, NO DIFFE RENTI AL MCHC 33.5 g/dL 31.5-3 5.7 Not Available [facility] ([facility]) [address] [facility], [place], [address], 11/24/2022 05:09:25 11/24/1911/24/2022 CBC, PLATE LET, NO DIFFE RENTI AL RDW 13.5 % 11.6-1 5.4 Not Available [facility] ([facility]) [address] [place], [address], 11/24/2022 05:09:25 11/24/19 23 11/24/2022 CBC, PLATE LET, NO DIFFE RENTI AL platelets 168 x10e3 /uL 150-45 0 Not Available [facility] ([facility]) [address] [facility], [place], [address], 11/24/2022 05:09:25 11/24/19 23 11/24/2022 CBC, PLATE LET, NO DIFFE RENTI AL NRBC STONE REPAIRER Not Available [facility] ([facility]) [address] [facility], [place], [address], 11/24/2022 05:09:25 11/23/19 23 11/21/2022 MRI, hip, w/o contr ast [facility] [place] [id number] Patien t Name: JUANA MONROE Access ion #: [id number] Sex: M : 1955 2 Dictat ed By: Suresh Olmedo Attend ing Physic brennan: , Orderi ng Physic brennan: RYAN MADDOX Exam Date: 2022 19:39 PM Exam Name: MRI HIP RT WO Admitt ing Diagno sis(es ): STUDY: MRI OF RIGHT HIP WITHOU T CONTRA [facility] INDICA TION: Histor y of right hip pain. TECHNI QUE: High-r esolut ion MRI of the right hip was perfor med in multip le planes . FINDIN GS: Bones: There is eviden ce of bone marrow edema in the right femora l head and acetab ulum. The distri bution of edema is more promin ent in the weight -beari ng region s. Subart icular sclero sis is seen in the femora l head and acetab ulum, sugges ting chroni c degene rative change s Joint: The joint space is reduce d in calibe r, consis tent with degene rative joint diseas e. The articu lar cartil age shows eviden ce of erosio n and irregu larity , partic ularly in the supero latera l aspect . Trace joint effusi on is identi fied within the joint capsul e. Soft Tissue s: The surrou nding muscle s, includ ing the gluteu s minimu s, medius , and maximu s, appear intact withou t any signif icant atroph y or edema. No eviden ce of muscle strain or tear. The iliops oas tendon and other region al tendon s appear intact . Neurov ascula r Bundle s: The neurov ascula r struct ures around the hip are unrema rkable . Page 1 [facility] [address] [place] [address] Patien t Name: JUANA MONROE Access ion #: [id number] Sex: M : 1955 2 Dictat ed By: Suresh Olmedo Attend ing Physic brennan: , Isabella seaman Physic brennan: RYAN MADDOX Exam Date: 2022 19:39 PM Exam Name: MRI HIP RT WO Admitt ing Diagno sis(es ): IMPRES CODY: Signif icant degene rative change s in the right hip joint charac terize d by: 1. Reduct ion in the joint space. 2. Erosio n of the articu lar cartil age. 3. Bone marrow edema in the femora l head and acetab ulum. 4. Subart icular sclero sis. 5. Trace joint effusi on. 6. No other signif icant pathol ogy identi fied in the surrou nding soft tissue s or neurov ascula r bundle s. Electr onical ly Signed by: Suresh Olmedo at 2022 18:39: 11 PM Signat ure Date/T barber: 023 6:39 PM Page 2 [email or web address] [facility] (Imaging) [address] [place], [address], 11/27/2022 10:42:12 11/23/19 23 11/22/2022 MRI, spine + hips, w/o contr ast No observ ation record ed. [facility] [address] [place], [address], 11/28/2022 09:25:18 12/31/19 23 12/27/2022 , echo ardio gram No observ ation record ed. [email or web address] [facility] [address], [place], [address], 01/26/2023 15:25:22 12/31/19 23 12/27/2022 cardi opulm onary stres s test (PROC ) No observ ation record ed. [email or web address] [facility] [address], [place], [address], 01/01/2023 09:58:37 01/20/2001/16/2023 NM, myoca rdial perfu cody scan No observ ation record ed. [email or web address] [facility] [address], [place], [address], 01/19/2023 12:03:21 01/20/20 23 01/16/2023 NM, myoca rdial perfu cody scan No observ ation record ed. [email or web address] [facility] [address], [place], [address], 01/23/2023 12:31:39 01/20/20 23 01/16/2023 NM, myoca rdial perfu cody scan No observ ation record ed. [email or web address] [facility] [address], [place], [address], 01/19/2023 14:16:02 02/03/20 23 01/31/2023 jens gross strai ght - morenita mulligan (PROC ) No observ ation record ed. [email or web address] Not Available 2022 16:13:04 02/06/20 23 02/05/2023 XR, knee No observ ation record ed. [email or web address] [facility] [address], [place], [address], 02/05/2023 15:22:48 02/06/20 23 02/05/2023 XR, hip + pelvi s, unila teral No observ ation record ed. [email or web address] [facility] [address], [place], [address], 02/06/2023 15:06:17 03/08/20 23 XR, hip + pelvi s, unila teral No observ ation record ed. [email or web address] [facility] [address], [place], [address], 03/13/2023 20:51:11 11/07/19 24 11/06/2023 cardi ac stres s test No observ ation record ed. [email or web address] [facility] [address], [place], [address], 11/13/2023 09:49:50 Result Notes None recorded. Problems Name Problem SNOMED Code Status Onset Date Resolution Date Notes Provider Name and Address Organization Details Recorded Time Lumbar radiculopa thy 680317114 Active 2021 Not Available [facility] 3 06:37:32 Prostate specific antigen outside reference range 208651615 Active 2016 Not Available [facility] 3 06:37:32 Prolapsed lumbar interverte bral disc 135283302 Active 2021 Not Available [facility] 3 06:37:32 Degenerati on of lumbar interverte bral disc 33492217 Active 2021 Not Available [facility] 3 06:37:32 Vitamin D deficiency 39816887 Active Not Available [facility] 3 06:37:32 Hypertensi ve disorder 98788554 Active Not Available [facility] 3 06:37:32 Type 2 diabetes mellitus 62237831 Active Not Available [facility] 3 06:37:32 Uncontroll ed type 2 diabetes mellitus 941062524 Active 2021 Not Available [facility] 3 06:37:32 Hyperlipid emia 36880379 Active Not Available [facility] 3 06:37:32 Fatigue 88027370 Active Not Available [facility] 3 06:37:32 Pain of hip region 71989760 Active 2022 Not Available [facility] 3 06:37:32 Pain of right hip joint 1720108266899 02 Active 2022 Not Available [facility] 3 06:37:32 Osteoarthr itis of hip 277234206 Active 2022 Not Available [facility] 3 06:37:32 Osteoarthr itis of right hip joint 1374716678514 07 Active 2022 Not Available [facility] 3 06:37:32 Spinal stenosis of lumbar region 57219649 Active 2022 Not Available [facility] 3 06:37:32 Male hypogonadi sm 44635711 Active 2022 Not Available [facility] 3 06:37:32 Hematocrit outside reference range 172994794 Active 2022 Not Available [facility] 3 06:37:32 Bilateral conjunctiv itis 3969898298372 9103 Active 2022 Not Available [facility] 3 06:37:32 Preoperati ve cardiovasc ular examinatio n Active 2022 Not Available [facility] 3 06:37:32 Obstructiv e sleep apnea syndrome 19870345 Active 2022 Not Available [facility] 3 06:37:32 Low back pain 721785690 Active 2022 Komal Sharpe, [place], [place] - [facility] 3 17:01:31 Problem Notes None recorded. Procedures Surgical History Date Name Laterality Status Provider Name and Address Organization Details Recorded Time Appendectomy completed Not Available [facility] 05/17/2022 06:08:21 Colonoscopy completed Not Available [facility] 05/17/2022 06:08:21 Carpal tunnel completed Not Available [facility] 05/17/2022 06:08:21 Knee completed Not Available [facility] 03/2022 06:08:21 Imaging Results Imaging Date Name Status LastModified by Organization Details LastModified Time 11/21/2022 MRI, hip, w/o contrast completed [email or web address] [facility] [address] [place], [address], 11/27/2022 10:42:12 11/22/2022 MRI, spine + hips, w/o contrast completed [email or web address] [facility] [address] [place], [address], 11/28/2022 09:25:18 12/27/2022 US, echocardiogram [place] [address] [facility] [address], [place], [address], 01/26/2023 15:25:22 12/27/2022 cardiopulmonary stress test (PROC) completed [address] [facility] [address], [place], [address], 01/01/2023 09:58:37 01/16/2023 NM, myocardial perfusion scan completed [email or web address] [facility] [address], [place], [address], 01/19/2023 12:03:21 01/16/2023 NM, myocardial perfusion scan completed [address] [facility] [address], [place], [address], 01/23/2023 12:31:39 01/16/2023 NM, myocardial perfusion scan completed [email or web address] [facility] [address], [place], [address], 01/19/2023 14:16:02 01/31/2023 catheterization straight - procedure (PROC) completed [place] [address] Information not available 02/02/2023 16:13:04 02/05/2023 XR, knee completed [place] [address], [place], [address], 02/05/2023 15:22:48 02/05/2023 XR, hip + pelvis, unilateral completed [email or web address] [facility] [address], [place], [address], 02/06/2023 15:06:17 03/08/2023 XR, hip + pelvis, unilateral completed [email or web address] [facility] [address], [place], [address], 03/13/2023 20:51:11 11/06/2023 cardiac stress test completed [email or web address] [facility] [address], [place], [address], 11/13/2023 09:49:50 Procedure Notes None recorded. Medical Equipment None Reported. Allergies Allergen ID Allergen Name Allergen Category Reaction Reaction Severity Criticality Documentation Date Start Date Code Code System Note Provider Name and Address Organization Details Recorded Time 52206 metformin medicatio n diarrhea moderate Not available 05/17/2022 6809 RxNorm NINI Oliveira, [place] [facility] 09:30:51 Medications Name Sig Start Date Stop Date Status Note LastModified by Organization Details LastModified Time celecoxib 200 mg capsule TAKE 1 CAPSULE BY MOUTH DAILY 02/19 completed Not Available Not Available Not Available hydrocodone 5 mg-acetamin ophen 325 mg tablet active Not Available Not Available No t Available lisinopril 20 mg tablet Take 1 tablet every day by oral route as directed. active Not Available Not Available No t Available Medrol (Juan Carlos) 4 mg tablets in a dose pack Use as directed 11/01 completed Not Available Not Available Not Available isosorbide mononitrate ER 30 mg tablet,exte nded release 24 hr TAKE 1 TABLET BY MOUTH EVERY DAY active Not Available Not Available No t Available testosteron e cypionate 100 mg/mL intramuscul ar oil inject 400mg once a month 07/13 completed Not Available Not Available Not Available Zithromax Z-Juan Carlos 250 mg tablet TAKE 2 TABLETS (500 MG) BY ORAL ROUTE ONCE DAILY FOR 1 DAY THEN 1 TABLET (250 MG) BY ORAL ROUTE ONCE DAILY FOR 4 DAYS 10/31 completed Not Available Not Available Not Available sulfamethox azole 800 mg-trimetho prim 160 mg tablet TAKE 1 TABLET BY MOUTH TWICE A DAY active Not Available Not Available No t Available aspirin 81 mg tablet,marge yed release TAKE 1 TABLET DAILY DIRECTED 02/19 completed Not Available Not Available Not Available acetaminoph en 500 mg tablet TAKE 2 TABLETS BY MOUTH EVERY 6 HOURS 04/05 completed Not Available Not Available Not Available acyclovir 800 mg tablet 09/22 completed Not Available Not Available Not Available pravastatin 80 mg tablet TAKE 1 TABLET DAILY DIRECTED 11/01 completed Not Available Not Available Not Available polymyxin B sulfate 10,000 unit-trimet hoprim 1 mg/mL eye drops INSTILL 1 DROP INTO AFFECTED EYE EVERY 6 HOURS 02/19 completed Not Available Not Available Not Available metoprolol tartrate 50 mg tablet TAKE 1 TABLET BY MOUTH TWICE A DAY active Not Available Not Available No t Available gabapentin 300 mg capsule Take 1 capsule twice a day by oral route for 30 days. active Not Available Not Available No t Available diclofenac sodium 75 mg tablet,marge yed release TAKE 1 TABLET BY MOUTH TWICE A DAY active Not Available Not Available No t Available pravastatin 20 mg tablet active Not Available Not Available Not Available testosteron e cypionate 200 mg/mL intramuscul ar oil INJECT 1.5 ML EVERY TWO WEEKS 02/19 completed Not Available Not Available Not Available levofloxaci n 500 mg tablet TAKE 1 TABLET BY MOUTH TWICE A DAY active Not Available Not Available No t Available Vitamin D2 1,250 mcg (50,000 unit) capsule Take 1 capsule every week by oral route in the morning for 60 days. 02/14 completed Not Available Not Available Not Available cefdinir 300 mg capsule TAKE 1 CAPSULE BY MOUTH EVERY 12 HOURS 02/19 completed Not Available Not Available Not Available Microlet Lancet 09/22 completed Not Available Not Available Not Available amoxicillin 875 mg-potassiu m clavulanate 125 mg tablet Take 1 tablet every 12 hours by oral route for 10 days. 01/22 completed Not Available Not Available Not Available oxycodone 5 mg tablet TAKE 1 TABLET BY MOUTH EVERY 4 HOURS 02/19 completed Not Available Not Available Not Available rosuvastati n 20 mg tablet TAKE 1 TABLET BY MOUTH DAILY AT BEDTIME 03/08 completed Not Available Not Available Not Available rosuvastati n 40 mg tablet TAKE 1 TABLET DAILY active Not Available Not Available No t Available Vitamin D3 09/22 completed Not Available Not Available Not Available multivitami n 1 daily 09/22 completed Not Available Not Available Not Available Senexon-S 8.6 mg-50 mg tablet TAKE 2 TABLETS BY MOUTH TWICE A DAY 03/08 completed Not Available Not Available Not Available Suprep Bowel Prep Kit 17.5 gram-3.13 gram-1.6 gram oral solution 05/11 completed Not Available Not Available Not Available OneTouch Verio test strips active Not Available Not Available Not Available Eliquis 2.5 mg tablet TAKE 1 TABLET BY MOUTH EVERY 12 HOURS 04/05 completed Not Available Not Available Not Available Farxiga 5 mg tablet Take 1 tablet every day by oral route. active Not Available Not Available No t Available Trulicity 1.5 mg/0.5 mL subcutaneou s pen injector Inject 1.5 mg every week by subcutane ous route. 2022 active Not Available Not Available Not Avai lable OneTouch Delica Plus Lancet 33 gauge Use to test blood sugar once daily active Not Available Not Available No t Available Mounjaro 5 mg/0.5 mL subcutaneou s pen injector Inject 5 mg every week by subcutane ous route. 04/06 completed Not Available Not Available Not Available Mounjaro 2.5 mg/0.5 mL subcutaneou s pen injector Inject 2.5 mg every week by subcutane ous route. 12/12 completed Not Available Not Available Not Available Vitals Date Recorded Body height Provider Name an d Address Organization Details Last Updated DateTime 11/30/2022 170.18 cm NINI Oliveira [place] - [place] [employer] [facility] 11/30/2022 10:10:02 Date Recorded Body height Body mass index (BMI) Body weight Body temperature Heart rate Oxygen saturation Oxygen saturation in Arterial blood by Pulse oximetry Systolic blood pressure Diastolic blood pressure Provider Name and Address Organization Details Last Updated DateTime 170.18 cm 36 kg/m2 767612. 25 g 97 [degF] 100 /min 96 % 96 % 142 mm[Hg] 82 mm[Hg] [facility] 16:55:27 Date Recorded Body height Provider Name an d Address Organization Details Last Updated DateTime 02/19/2023 170.18 cm [place] Nunez [facility] 02/19/2023 17:27:33 Date Recorded Body height Provider Name an d Address Organization Details Last Updated DateTime 03/08/2023 170.18 cm India Nunez [facility] 03/08/2023 15:41:34 Date Recorded Body height Provider Name an d Address Organization Details Last Updated DateTime 04/05/2023 170.18 cm [place] Nunez [facility] 04/05/2023 09:40:25 Social History Question Answer Notes LastModified by [employer] Details LastModified Time Tobacco Smoking Status Former Smoker [facility] 04/05/2023 09:39:43 What Is Your Level Of Alcohol Consumption? Occasional [id number] Information not available 05/17/2022 What Is Your Level Of Caffeine Consumption? Heavy [id number] Information not available 05/17/2022 What Type Of Diet Are You Following? REGULAR [id number] Information not available 05/17/2022 When Did You Quit Smoking? 16+yearssince lastcigarette Occassional Cigar [email or web address] Information not available 04/05/2023 What Was The Date Of Your Most Recent Tobacco Screening? 08/01/2018 Information not available 04/05/2023 What Is Your Relationship Status? [id number] Information not available 05/17/2022 At What Age Did You Start Smoking Tobacco? 16 [email or web address] Information not available 04/05/2023 Do You Use Any Illicit Or Recreational Drugs? No [email or web address] Information not available 04/05/2023 Do You Or Have You Ever Used Any Other Forms Of Tobacco Or Nicotine? No Information not available 04/05/2023 Sex: Unknown Functional Status Question Answer Note LastModified by [employer] Details LastModified Time What is your exercise level? None [id number] Information not available 05/17/2022 Mental Status None recorded. Family History Relationship Description Onset Age of this Age Resolved Age Notes LastModified by Organization Details LastModified Time Father Diabetes mellitus [id number] Not available 05/17/2022 06:08:23 Father Coronary artery bypass graft x3 [email or web address] Not available 09:39:42 Father Heart disease Not available 2022 09:31:12 Mother Diabetes mellitus [id number] Not available 05/17/2022 06:08:23 Paternal Grandmother Diabetes mellitus [id number] Not available 05/17/2022 06:08:23 Mother Family history of malignant neoplasm Not available 04/05 09:39:42 Medical History Condition Response ARTHRITIS Y DIABETES, TYPE Y EYE PROBLEMS Y HYPERTENSION Y Immunizations Vaccine Type Date Status Note Provider Nam e and Address Organization Details Recorded Time SARS-COV-2 (COVID-19) vaccine, UNSPECIFIED completed Not Available [facility] 02/22/2023 06:37:32 Past Encounters Encounter ID Performer Location Encounter Start Date Encounter Closed Date Diagnosis/Indication Diagnosis SNOMED-CT Code Diagnosis ICD10 Code Diagnosis Note [id number] Jeffrey Tovar MD [facility] Ant vanita [facility] [place] [address] 11/09/2020 00:00:00 11/09/2020 12:00:29 [id number] S[facility] [place] [address] 05/19/2021 00:00:00 05/19/2021 12:21:07 [id number] S[facility] [place] [address] 10/31/2021 00:00:00 10/31/2021 09:24:32 [id number] S_[facility] [place] [address] 12/12/2021 00:00:00 12/12/2021 15:12:36 [id number] Marianne Hollis MD [facility] [address] [facility] [address] [place] [address] 04/06/2022 00:00:00 04/06/2022 18:13:09 [id number] Marianne Hollis MD [facility] [address] [facility] [address] [place] [address] 04/20/2022 00:00:00 04/20/2022 19:23:24 [id number] Mango Cummings MD [facility] Ortho [address] [address] 10/10/2022 09:14:21 10/10/2022 10:00:23 Pain of right hip joint [id number] 73543 M25.551 Osteoarthritis of hip 23 9223313 M16.0 M16.10 M16.11 M16.12 Osteoarthr itis of right hip joint 7087075429 75966 M16.11 Spinal rufino nosis of lumbar region 69005648 M48.062 [id number] GUTIERREZ Barba [facility] Care [facility] [address] [facility] [address] [place] [address] 10/25/2022 10:14:45 10/25/2022 10:49:53 Pain of right hip joint 1181678193 82419 M25.551 Chronic, recurrentC ontinue with PT as recommende d by ortho providerDi clofenac 75mg BID Reviewed ortho note from Dr. Cummings (10/10/22): Patient presents hip and back pain. He has been evaluated for his lumbar spine and had a remote recommenda tion that no surgery was necessary. He continues to be symptomati c and not just in the buttock and down his leg but also in the groin his x-rays demonstrat e bone-on-americo ne change of his hip however I am not totally convinced that the hip is causing the majority of his pain. I have recommende d an injection of into the hip joint to see if it takes care of his pain but does not total hip arthroplas ty would be in order if he does not get much relief continues to have pain because of his back than continued conservati ve treatment would be indicated. He is well aware the fact that he has 2 problems however II do think with bone-on-americo ne change seen on x-ray he will end up with hip replacemen t surgery. Hyperlipidemia 42053163 E78.5 Chronic, stable on statinDisc ussed need for regular exercise, increase intake of water/vege tables/fib er. Decrease the amount of greasy/fat ty/fried foods in diet. Consider/s tart taking a daily fish oil supplement .Continue Crestor 20mg daily Hypertensive disorder 38 273864 I10 StableAsym ptomatic at this timeEncour aged pt to increase water intake, reduce caffeine intake, exercise regularly, decrease/e liminate sodium intake, work on weight loss and stress reductionC ontinue current medication sLisinopri l 20mg daily Vitamin D deficiency 347 58410 E55.9 StableVit D wnl (04/10/22) Type 2 barry betes mellitus 00169322 E11.9 EgxxpwD9G 6.4 (04/10/22)D iscussed need for regular exercise, increase intake of water/vege tables/fib er. Decrease intake of carbs, especially white rice/pasta /flour/primo ad/sugar.F arxiga 5mg dailyTruli city 1.5mg weekly [id number] Mango Cummings MD [facility] [address] 11/07/2022 09:08:47 11/07/2022 09:58:14 Pain of right hip joint 2966267147 64250 M25.551 Osteoarthr itis of right hip joint 0692525490 91517 M16.11 Osteoarthritis of hip 23 2686239 M16.0 M16.10 M16.11 M16.12 Spinal rufino nosis of lumbar region 84785520 M48.181 [id number] Ryan Gandara MD [facility] [address] 11/16/2022 09:51:21 11/16/2022 14:04:57 Osteoarthritis of right hip joint 6793507536 70170 M16.11 [id number] Marianne Hollis MD [facility] Matt hernandez [address] [facility] [address] [place] [address] 11/22/2022 10:14:22 11/22/2022 11:24:02 Hematocrit outside reference range 688858336 R71.8 New findingWil l repeat CBC since pt will be having right hip replacemen t surgery in the next few months. Need definitive platelet count since pt reports family hx of DVT. May need to consider prophylact ic tx after surgery to reduce risk. Pain of ri ght hip joint 8110318682 57748 M25.551 Chronic, recurrentC ontinue with PT as recommende d by ortho providerDi clofenac 75mg BID Reviewed ortho note from BALJEET Denis (11/16/22): Impression : 67-year-ol d male who has severe osteoarthr itis of the right hip with collapse of the superior aspect femoral head seen on x-rays from 10/10. Only treatment that is going to completely improve his symptoms is going to be total hip arthroplas ty. He had a cortisone injection 3 weeks ago and it is going to need to be a minimum of 3 months from the time of injection total time surgery. I did recommend obtaining an MRI scan of the hip. On the x-rays today the superior aspect looks to be a little bit lucent had this may be a fragment from previous stress fractures that developed or it could be AVN MRI scan of be better to delineate this as well as look at the rest of the hip more clearly. I did recommend he use a cane on a full-time basis in left hand. If symptoms get worse he may need to go total walker prevent further problems. He asked about exercise and walking strongly suggested that he not do that. He needs to minimize his activities at this point to avoid further problems with his hip. He has had 2 cortisone injections in his hip up until now and I have also recommende d and obtained a CRP and sed rate to rule out any possibilit y of infection. I gave him the ortho info sheet on total hip arthroplas ty. We will set up the MRI scan and see him back after the test. 30 minutes was spent in treatment patient more half of this in face-to-fa ce conversati on. [id number] Ryan Gandara MD [facility] [place] [address] [place] [address] 11/30/2022 10:06:58 12/04/2022 09:28:29 Pain of right hip joint [id number] 84828 M25.196 [id number] Marianne Hollis MD [facility] Primary Care [place] hernandez [address] [facility] [address] [place] [address] 01/03/2023 16:44:10 01/03/2023 17:54:12 Obstructive sleep apnea syndrome 23923552 G47.33 ChronicPt encouraged to continue with using cpap nightly with new mask. Hematocrit outside reference range 123288662 R71.8 ResolvedPl atelet count 168 (11/23/22)Du e to family hx of DVT, may need to consider prophylact ic tx after surgery to reduce risk. Pain of ri ght hip joint 5689195970 42251 M25.551 Chronic, recurrentC ontinue with PT as recommende d by ortho providerDi clofenac 75mg BID Reviewed ortho note from Dr. Gandara (11/30/22): Impression : Patient has advanced osteoarthr itis of the right hip. MRI scan shows no evidence of acute insufficie ncy fracture and I suspect that the appearance of collapse of the superior femoral head is due to where the superior acetabulum into the femoral head where he has bone-on-americo ne change. This represents rapid progressio n since the his x-ray from 10/31/2021 showed only very mild degenerati ve changes. His C-reactive protein and sedimentat ion rate are both normal which makes the likelihood of occult infection in his right hip very low. Patient would like to proceed with hip replacemen t surgery. We are going to wait until January so he will be a minimum of 3 months out from his cortisone injection Into the right hip.I have discussed risks of surgery with him in detail. I discussed my preference for using the direct anterior approach. I explained that there will be some numbness around the incision. We discussed the risk of infection. I explained that we would want him to take antibiotic s before dental work in the future. He is at some increased risk for infection because of his diabetes and his obesity. His last BMI was 37.4. Will plan to use oral antibiotic s for 2 weeks after surgery to mitigate the increased risk. He states he has a history of a reaction is some antibiotic but does not know what it was unfortunat melvin. He does not know how we can find out either. I discussed the risk of blood clots. He does have a strong family history of DVT and his obesity also increases his risk. I discussed my preference for using Eliquis for 5 weeks after surgery for DVT prophylaxi s. I explained heterotopi c ossificati on to him and my plan would be to use Celebrex for 10 days to reduce the risk of heterotopi c ossificati on after surgery. He will need to stop his diclofenac 7 days before surgery. He will also need to stop his Trulicity for 7 days before surgery and discuss diabetes control during that time with Dr. Ying while he is off the Trulicity. I explained that if he does not stop the Trulicity 7 days before surgery his stomach may be full of food contents increasing risk of aspiration during surgery. I have discussed the risk of leg length discrepanc y, fracture, component loosening or breakage or where necessitat ing revision surgery, bleeding and risk for transfusio n, nerve injury, I explained that though be numbness around the incision. Risk of medical complicati ons such as heart attack stroke pulmonary embolism and were reviewed. He does have risk factors for underlying coronary artery disease and I would recommend that he see a cardiologi st before surgery for cardiac risk assessment . His risk factors include diabetes, extreme obesity, history of extremely high lipids, smoking, and strong family history his father having 4 bypass grafts at age 72.We will proceed as discussed. Patient was provided with walker and front wheels today. [id number] Ryan Gandara MD [facility] [place] [address] [facility] [address] [place] [address] 02/19/2023 17:23:10 02/19/2023 18:28:08 History of total replacement of right hip joint [id number] 90643 Z96.140 [id number] Ryan Gandara MD [facility] [address] [place] [address] 03/08/2023 15:36:21 03/14/2023 15:02:43 History of total replacement of right hip joint 7683028652 22044 Z96.641 Low back pain 260070731 M54.50 [id number] Ryan Gandara MD [facility] [place] [address] [place] [address] 04/05/2023 09:37:22 04/05/2023 10:19:55 History of total replacement of right hip joint 7789143826 58305 Z96.641 Health Concerns Section Related Observation LastModified by Organization Detai ls LastModified Time None Recorded Concern Status LastModified by Organization Details LastModified Time None Recorded Advance Directives Directive None Recorded Payers Encounter Date Sequence Insurance Name Policy Number Policy Ramos Covered Member ID Ramos Member ID Guarantor Name 11/30/2022 1 [facility] (MEDICARE REPLACEMENT/A DVANTAGE - HMO) [id number] Ju[place] [employer] Ona [id number] Juana V Ona 01/03/2023 1 [facility] (MEDICARE REPLACEMENT/A DVANTAGE - HMO) [id number] Juana V Antione [id number] Juana V Antione 02/19/2023 1 [facility] (MEDICARE REPLACEMENT/A DVANTAGE - HMO) [id number] Juana V Ona [id number] Juana V Ona 03/08/2023 1 [facility] (MEDICARE REPLACEMENT/A DVANTAGE - HMO) [id number] Juana V Antione [id number] Juana V Antione 04/05/2023 1 [facility] (MEDICARE REPLACEMENT/A DVANTAGE - HMO) [id number] Juana V Ona [id number] Juana V Antione Notes Date Note Type Note Provider Name and Address Organization Details Recorded Time 11/30/2022 text/html patient returns after MRI scan of right hip. It shows no evidence of avascular necrosis in either hip. The there is bone marrow edema in the superior right femoral head and superior acetabulum. There is flattening and subtle indentation of the superior femoral head but without evidence of fracture line suggesting that the area of flattening and ended patient may be due to wear rather than insufficiency fracture with subchondral collapse. Abductor musculature looks normal. I reviewed his right hip x-rays from 10/31/2021 which showed minimal degenerative changes and no joint space narrowing. Patient had a cortisone shot in the right hip joint well in pain management for lower back pain in January of 2022. He had recent cortisone injection under fluoroscopic guidance into the right hip on October 23 and that did help his symptoms at least moderately. He has been using diclofenac on an as-needed basis. Feels the shot is still helping. We did check a C-reactive protein which was 1 normal 0-10 and sedimentation rate that was normal at 13, 0-31 Being the normal range. This argues against occult infection. Patient does smoke an occasional cigar perhaps once a month. I have advised him to avoid this and feels he can easily do that. Patient's past history is significant for extreme obesity. He has lost approximately 50 lb in last 1 year. He is using the Trulicity weekly injection. His diabetes has been in excellent control. Hemoglobin A1c was just checked and was 6.0. A 25 hydroxy vitamin-D level was checked this past month and was normal at 42.4. His past family history is significant for his brother having problems with blood clots in his leg. He was told to take Coumadin for ever and decided to stop it and subsequently and patient believes his brother likely of a pulmonary embolism. His father had 4 coronary artery bypasses at age 72. Patient quit smoking in 1990. His only occasional cigar. Recent lipid panel showed elevated triglycerides at 161 but normal cholesterol levels. He had a lipid panel 1 year ago October 31, 2021 which showed triglycerides at 666 and cholesterol at 256. His weight loss has caused a dramatic improvement in his lipid panel numbers. Patient also takes Crestor. Patient is taking a baby aspirin daily for last 20 years and his primary care doctor advised him to do that. Ryan Gandara MD [address] [place] [address], [facility] [address], [place], [address], [facility] 12/03/2022 12:19:29 01/03/2023 text/html 01/03/23: 1. Pt in office for 6 week f/u appt. Pt states he has been seeing ortho (Dr. Gandara) and they were discussing his family cardiac hx. States he was sent to cardiology and the ekg they did showed some right-sided heart stress, states he had echo last week, and has chemical stress test at the end of the month, with f/u scheduled for 01/26/23. Pt states cardiology told him that he needs to start using his cpap machine to reduce the strain on the right side of his heart.2. Pt states cpap mask broke over the weekend. Reports orders were already sent to the new supplier (didn't like [employer]). States that he has been trying to use the cpap, but isn't sleeping well with it. 11/22/22: 1. Pt in office for 4 week f/u on lab results. Pt states that he is concerned about his blood counts being elevated b/c his brother of blood clots.2. Pt states he is concerned about clotting b/c he is d/t have right hip replacement surgery soon. Reports Dr. Gandara wants him to lose some more weight first. Also advised pt to use cane d/t concerns about AVN of right hip. 10/25/22: 1. Pt in office for 6 month f/u appt2. Pt states he saw Dr. Cummings a couple of weeks ago for his right hip issues. Pt states he got a steroid injection on Sunday and is concerned b/c his pain management provider has given him 5 other steroid injections this year. Pt states hip feels better after the injection on Sunday and he was able to walk a mile yesterday. Jori Rey, PATHOLOGY LABORATORY TECHNOLOGIST [address] [facility], [facility] [address], [place], [address], [facility] [place] 01/03/2023 19:18:56
--- NOTE | 2024-07-23 15:47 | ED_ITS ---
HPI - Skin/Abscess/Foreign Bdy General Chief complaint: Skin/Abscess/Foreign Body <Sierra Cabral PA-C - Last Filed: 07/23/24 16:47> Stated complaint: Food stuck in throat-Steak sandwich <Sierra Cabral PA-C - Last Filed: 07/23/24 16:47> Time Seen by Provider: 07/23/24 15:48 <Sierra Cabral PA-C - Last Filed: 07/23/24 16:47> Focused HPI: This is a 68 year old male that presents to the ER for possible food bolus. Reports he has had this happen before, but can usually get it to pass. Reports he ate a steak sandwich about 11:30 this morning. He has not been able to eat or drink anything since, it comes right back up. GENERAL: Well-appearing, well-nourished, and in no acute distress. HEAD: Normocephalic, atraumatic. CHEST: Clear to auscultation. ?No respiratory distress. HEART: Regular rate and rhythm.? NEURO: ?Alert and oriented x3. Patient screened in triage and initial orders placed.? ?Additional care and disposition to be based upon?diagnostic testing and treatment. <Sierra Cabral PA-C - Last Filed: 07/23/24 16:47> History of Present Illness HPI narrative: Agree with the HPI above. Patient states this has happened to him in the past but did not have any procedures or dilations. History of drinking but no significant smoking or GERD history to his knowledge. <Robert Mcleod MD - Last Filed: 07/23/24 16:44> Related Data Home medications: Home Medications ?Medication ?Instructions ?Recorded ?Confirmed ?Last Taken ?Type cholecalciferol (vitamin D3) 100 100 mcg PO DAILY 01/15/23 03/26/24 01/29/23 History mcg (4,000 unit) tablet isosorbide mononitrate 30 mg 30 mg PO DAILY 02/01/23 03/26/24 02/05/23 History tablet,extended release 24 hr metoprolol tartrate 50 mg tablet 50 mg PO BID 02/01/23 03/26/24 02/05/23 History aspirin 81 mg tablet,delayed 81 mg PO DAILY 06/25/23 03/26/24 Unknown History release (Adult Aspirin Regimen) ezetimibe 10 mg tablet 10 mg PO DAILY 07/25/23 03/26/24 Unknown History Nitroglycerin .Route 01/29/24 03/26/24 Unknown History azelastine 137 mcg (0.1 %) nasal 1 spray intranasal Q12H 01/29/24 03/26/24 Unknown History spray bempedoic acid 180 mg tablet 180 mg PO DAILY 01/29/24 03/26/24 Unknown History (Nexletol) lisinopril 5 mg tablet 5 mg PO DAILY 01/29/24 03/26/24 Unknown History <Sierra Cabral PA-C - Last Filed: 07/23/24 16:47> Allergies/Adverse reactions: Allergies Allergy/AdvReac Type Severity Reaction Status Date / Time No Known Allergies Allergy Verified 07/23/24 16:42 <Sierra Cabral PA-C - Last Filed: 07/23/24 16:47> Review of Systems Review of Systems: As reviewed above in HPI <Robert Mcleod MD - Last Filed: 07/23/24 16:44> [facility] Past Medical History Medical History: Medical History Hip replacement planned LUARA (obstructive sleep apnea) Hyperlipidemia HTN (hypertension) Diabetes <SHANE Treviño Last Filed: 07/23/24 16:47> Surgical History Surgical History: Surgical History History of arthroscopy of left knee History of carpal tunnel release of both wrists History of appendectomy <SHANE Treviño Last Filed: 07/23/24 16:47> Family History Family History: Family History Father Diabetes mellitus Heart disease Mother Diabetes mellitus Heart disease Sibling Diabetes mellitus Heart disease <Sierra Cabral PA-C - Last Filed: 07/23/24 16:47> Social History Social History: Social History Social History: Currently lives at home with his . Surrogate decisionmaker: Swapnil Talbot, spouse. Code Status: Full Code. 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 2022 Alcohol intake: never Drinks per week: 12 Alcohol use details: varies Substance use: never Lack of Transportation: No Lack of Food: Never True Current Housing: I Have Housing Concerned About Future Housing: No Difficulty Paying Gas/Electric Bills: No Difficulty Paying for Meds: No Currently Unemployed: No Education: Associate Degree Difficulty w/ Childcare or Family Care: No Living arrangements: with family Occupation/Education: retired Gender identity (if verbalized by the patient): Male Spiritual care concerns: No Agree to blood products: Yes <Sierra Cabral PA-C - Last Filed: 07/23/24 16:47> Exam Narrative: GENERAL: uncomfortable appearing but not any acute distress, tolerating secretions and answering all questions HEAD: [Normocephalic, atraumatic.] EYES: [PERRLA and EOMI.] ENT: Nares clear, no rhinorrhea or epistaxis. Mucous membranes moist. NECK: Supple. CHEST: [Clear to auscultation. No respiratory distress.] HEART: [Regular rate and rhythm]. No murmur heard. [Normal peripheral pulses.] ABDOMEN: [Soft, nondistended], [nontender], [No rigidity or guarding] EXTREMITIES: Normal range of motion. [No edema.] SKIN: Warm, dry, no rash. NEURO: [No focal deficits]. Alert and oriented [x3.] PSYCH: [Normal mood and affect.] <Robert Mcleod MD - Last Filed: 07/23/24 16:44> Course Vital Signs Vital signs: Vital Signs Temperature 97.9 F 07/23/24 15:25 Pulse Rate 75 07/23/24 15:25 Respiratory Rate 16 07/23/24 15:25 Blood Pressure 113/71 07/23/24 15:25 Pulse Oximetry 98 07/23/24 15:25 Oxygen Delivery Room Air 07/23/24 15:25 Temperature 97.9 F 07/23/24 16:43 Pulse Rate 77 07/23/24 16:43 Respiratory Rate 18 07/23/24 16:43 Blood Pressure 124/60 07/23/24 16:43 Pulse Oximetry 97 07/23/24 16:43 Oxygen Delivery Room Air 07/23/24 16:43 <Sierra Cabral PA-C - Last Filed: 07/23/24 16:47> Vital Signs Temperature 97.9 F 07/23/24 15:25 Pulse Rate 75 07/23/24 15:25 Respiratory Rate 16 07/23/24 15:25 Blood Pressure 113/71 07/23/24 15:25 Pulse Oximetry 98 07/23/24 15:25 Oxygen Delivery Room Air 07/23/24 15:25 Temperature 97.9 F 07/23/24 16:43 Pulse Rate 77 07/23/24 16:43 Respiratory Rate 18 07/23/24 16:43 Blood Pressure 124/60 07/23/24 16:43 Pulse Oximetry 97 07/23/24 16:43 Oxygen Delivery Room Air 07/23/24 16:43 <Robert Mcleod MD - Last Filed: 07/23/24 16:44> MDM - Skin/Abscess/Foreign Bdy MDM Narrative Medical decision making narrative: 68-year-old male presenting to the ER for suspected food bolus impaction. Patient states he was eating a steak sandwich at lunch time about 11:30 a.m.. [place] that he took a bite and swallowed that was not able to go down past his throat. He states he tried checking some water and immediately vomit this up. Not tolerating any oral intake without immediate regurgitation. Has happened to him in the past but did not have any dilations or procedures in the past on her own after some time and fluid intake. He is presently not nauseous and endorses some retrosternal discomfort but no chest pain. He is Uncomfortable but overall well-appearing with normal vital signs, tolerating his secretions and conversing in full sentences. GI was consulted immediately upon arrival to the emergency department given his historical features concerning for food bolus impaction. Endoscopy will be arranged with anesthesia and patient will go to the endoscopy suite for definitive interventions. Patient was informed of the plan and agreeable to the procedure. Chest x-ray and basic laboratory studies and IV access were obtained. X-ray shows no acute cardiopulmonary process and patient was taken to the endoscopy suite with GI for intervention and will likely be discharged after the procedure. Patient left the department at this time without any further issues. <Robert Mcleod MD - Last Filed: 07/23/24 16:44> Medical Records Attestation: I reviewed the patient's medical records. <Robert Mcleod MD - Last Filed: 07/23/24 16:44> Imaging Data Attestation: I personally reviewed and interpreted this imaging study as follows: <Robert Mcleod MD - Last Filed: 07/23/24 16:44> My impression: Impressions Chest X-Ray 07/23/24 16:24 IMPRESSION: No focal infiltrate or effusion. <Robert Mcleod MD - Last Filed: 07/23/24 16:44> Critical Care Time Critical Care Time Critical Care Time: No <Sierra Cabral PA-C - Last Filed: 07/23/24 16:47> Discharge Plan Discharge Clinical Impression: Food impaction of esophagus Qualifiers: Encounter type: initial encounter Qualified Code(s): T18.128A - Food in esophagus causing other injury, initial encounter <Sierra Cabral PA-C - Last Filed: 07/23/24 16:47> Patient Disposition: Still a Patient <Sierra Cabral PA-C - Last Filed: 07/23/24 16:47> Condition: Stable <Sierra Cabral PA-C - Last Filed: 07/23/24 16:47> Time of Disposition: 16:44 <Sierra Cabral PA-C - Last Filed: 07/23/24 16:47> 16:44 <Robert Mcleod MD - Last Filed: 07/23/24 16:44>
--- OUTSIDE RECORDS SUMMARY | 2024-07-23 16:16 | XMS_ITS | CONTINUITY OF CARE DOCUMENT ---
Author Name anamikaheaven anamikaheaven Address Unknown Organization [facility] Address [address] [facility] [address] [place] [address] Phone [phone] Care Team Providers Care Hose Inspector And Patcher Name Role Phone Javi MAX, Jazzy Peres Unavailable IRISH BLOUNT MD Unavailable SOO KNOWLES Unavailable [phone] PROBLEMS Condition Status Date Provider Notes Cardiology examination active Jazzy bangura MD Hyperlipidemia active Jazzy Caldwell MD Hypertension active Jazzy Caldwell MD Preop cardiovasc. examination active Richard Caldwell MD Tobacco abuse active Jazzy Caldwell MD Family Hx heart disease active Jazzy romano MD DM - type 2 active Jazzy Caldwell MD Sleep apnea active Jazzy Caldwell MD RBBB active Jazzy Caldwell MD CAD active Jazzy Caldwell MD Body mass index (BMI) 36.0-36.9, adult active Jazzy Caldwell MD ENCOUNTERS Date Type Provider Location Encounter Diag nosis - In-person encounter Office Visit Jazzy Caldwell MD [place] [facility] - In-person encounter Office Visit Jazzy Caldwell MD [place] [facility] - In-person encounter Office Visit Jazzy Caldwell MD [place] [facility] Body mass index (BMI) 36.0-36.9, adult - In-person encounter Office Visit Jazzy Caldwell MD [place] [facility] - In-person encounter Office Visit Jazzy Caldwell MD [place] [facility] - In-person encounter Office Visit Jazzy Caldwell MD [facility] CAD - In-person encounter Office Visit Jazzy Caldwell MD [place] [facility] - In-person encounter Office Visit Jazzy Caldwell MD [place] [facility] Cardiology examinationHyperlipidemiaHypertensionPreop cardiovasc. examinationTobacco abuseFamily Hx heart diseaseDM - type 2Sleep apneaRBBB VITAL SIGNS Date Observation Value Provider Body Mass Index (Ratio) 39.38 kg/m2 Ml Caldwell MD blood pressure, diastolic 69 mm[Hg] Susana Ha blood pressure, systolic 107 mm[Hg] Rachael Ha oxygen saturation, oximetry 95 % Flory Ha pulse rate 76 /min Flory Ha respiratory rate E&M 12 /min Flory Ha weight E&M 259 [lb_av] Flory Ha height E&M 68 [in_i] Flory Ha blood pressure, cuff size regular An shaye Ha Body Mass Index (Ratio) 38.01 kg/m2 Ml Caldwell MD blood pressure, cuff size large Ke rri Edward blood pressure, diastolic 72 mm[Hg] Ke rri Edward blood pressure, systolic 110 mm[Hg] Ker ri Haleyelder oxygen saturation, oximetry 95 % Jessica Leon pulse rate 86 /min Jessica Rush formerly [facility] weight E&M 250 [lb_av] Jessica Rush formerly [facility] height E&M 68 [in_i] Jessica Rush [facility] Body Mass Index (Ratio) 36.49 kg/m2 Get [facility] respiratory rate E&M 18 /min Mehul Deon blood pressure, cuff size regular Do [facility] oxygen saturation, oximetry 96 % [facility], [facility] 69 mm[Hg] Do [facility] blood pressure, systolic 119 mm[Hg] Jose Maria fuentes Deon pulse rate 82 /min [facility] weight E&M 240 [lb_av] [facility] height E&M 68 [in_i] [facility] Body Mass Index (Ratio) 34.51 kg/m2 Ml Caldwell MD pulse rate 81 /min [facility] blood pressure, cuff size regular Jasmyne [facility] blood pressure, diastolic 75 mm[Hg] Jasmyne [facility] blood pressure, systolic 119 mm[Hg] [facility], oximetry 95 % [facility] respiratory rate E&M 14 /min Cate Whiteside iller weight E&M 227 [lb_av] [facility] height E&M 68 [in_i] [facility] Body Mass Index (Ratio) 34.51 kg/m2 Ml Caldwell MD blood pressure, cuff size regular Jasmyne [facility] blood pressure, diastolic 65 mm[Hg] [facility] blood pressure, systolic 107 mm[Hg] Kenney [facility] weight E&M 227 [lb_av] [facility] pulse rate 66 /min [facility] oxygen saturation, oximetry 95 % [facility] respiratory rate E&M 18 /min [facility] iller height E&M 68 [in_i] [facility] Body Mass Index (Ratio) 34.97 kg/m2 Renan Iorfida pulse rate 82 /min Kirsten [place] blood pressure, diastolic 69 mm[Hg] An stephane [place] blood pressure, systolic 109 mm[Hg] Any alyssa [place] oxygen saturation, oximetry 98 % [facility] 230 [lb_av] Kirsten [place] blood pressure, cuff size large An [facility] height E&M 68 [in_i] [facility] Body Mass Index (Ratio) 35.12 kg/m2 Ml Caldwell MD oxygen saturation, oximetry 95 % [facility] respiratory rate E&M 16 /min [facility] iller pulse rate 93 /min [facility] weight E&M 231 [lb_av] [facility] height E&M 68 [in_i] [facility] Body Mass Index (Ratio) 35.73 kg/m2 Ml Caldwell MD blood pressure, diastolic 73 mm[Hg] April nkLogdiana blood pressure, systolic 121 mm[Hg] Marissa Thakkarogdiana pulse rate 92 /min Zari Alanis respiratory rate E&M 18 /min Zari Alanis blood pressure, diastolic 73 mm[Hg] Sh danielapatti Annabelle blood pressure, systolic 121 mm[Hg] She louise Alanis oxygen saturation, oximetry 97 % Zari Alanis weight E&M 235 [lb_av] Zari Alanis height E&M 68 [in_i] Zari Alanis blood pressure, cuff size regular Sh yesi Alanis ALLERGIES No Known Drug Allergies RESULTS Date Observation Value Provider Reference Range Interpretation Location 3 lipoprotein, beta, serum, point, quantitative, calculated 105 mg/dL [facility] 0-99 High 3 HDL cholesterol, serum 50 mg/dL [facility] >39 3 triglyceride, serum, random 247 mg/dL [facility] 0-149 High 3 cholesterol, serum 197 mg/dL [facility] 910-920 8142/09/1 3 alanine aminotransferase (SGPT), serum 28 1/L [facility] 0-44 3 aspartate aminotransferase (SGOT), serum 22 1/L [facility] 0-40 3 alkaline phosphatase, serum 82 1/L [facility] 44-121 3 bilirubin, serum, total 0.4 mg/dL [facility] 0.0-1.2 3 globulin, serum 2.7 [facility] 1.5-4.5 3 albumin, serum 4.2 g/dL [facility] 3.9-4.9 3 protein, total, serum 6.9 g/dL [facility] 6.0-8.5 3 calcium, serum 9.5 mg/dL [facility] 8.6-10.2 3 carbon dioxide, venous blood 24 mmol/L [facility] 20-29 3 chloride, serum 103 mmol/L [facility] 96-106 3 potassium, serum 5.1 mmol/L [facility] 3.5-5.2 3 sodium, serum 140 mmol/L [facility] 024-380 2322/09/1 3 urea nitrogen/creatinine ratio, serum 23 [facility] 10-24 3 creatinine, serum 0.88 mg/dL [facility] 0.76-1.27 3 urea nitrogen, blood 20 mg/dL [facility] 8-27 3 blood glucose, random 109 mg/dL [facility] 70-99 High 3 lipoprotein, beta, serum, point, quantitative, calculated 126 mg/dL [facility] 0-99 High 3 HDL cholesterol, serum 65 mg/dL [facility] >39 3 triglyceride, serum, random 125 mg/dL [facility] 0-149 3 cholesterol, serum 213 mg/dL [facility] 100-199 High 3 alanine aminotransferase (SGPT), serum 24 1/L [facility] 0-44 3 aspartate aminotransferase (SGOT), serum 23 1/L [facility] 0-40 3 alkaline phosphatase, serum 84 1/L [facility] 44-121 3 bilirubin, serum, total 0.4 mg/dL [facility] 0.0-1.2 3 globulin, serum 2.7 [facility] 1.5-4.5 3 albumin, serum 4.2 g/dL [facility] 3.9-4.9 3 protein, total, serum 6.9 g/dL [facility] 6.0-8.5 3 calcium, serum 9.1 mg/dL [facility] 8.6-10.2 3 carbon dioxide, venous blood 22 mmol/L [facility] 20-29 3 chloride, serum 103 mmol/L [facility] 96-106 3 potassium, serum 4.6 mmol/L [facility] 3.5-5.2 3 sodium, serum 140 mmol/L [facility] 911-165 2195/07/1 3 urea nitrogen/creatinine ratio, serum 21 [facility] 10-24 3 creatinine, serum 0.91 mg/dL [facility] 0.76-1.27 3 urea nitrogen, blood 19 mg/dL [facility] 8-27 3 blood glucose, random 120 mg/dL [facility] 70-99 High 8 lipoprotein, beta, serum, point, quantitative, calculated 113 mg/dL [facility] 0-99 High 8 HDL cholesterol, serum 59 mg/dL [facility] >39 8 triglyceride, serum, random 146 mg/dL [facility] 0-149 8 cholesterol, serum 198 mg/dL [facility] 338-315 5899/03/2 8 alanine aminotransferase (SGPT), serum 112 1/L [facility] 0-44 High 8 aspartate aminotransferase (SGOT), serum 46 1/L [facility] 0-40 High 8 alkaline phosphatase, serum 102 1/L [facility] 44-121 8 bilirubin, serum, total 0.5 mg/dL [facility] 0.0-1.2 8 albumin/globulin ratio, serum 1.6 [facility] 1.2-2.2 8 globulin, serum 2.7 [facility] 1.5-4.5 8 albumin, serum 4.4 g/dL [facility] 3.9-4.9 8 protein, total, serum 7.1 g/dL [facility] 6.0-8.5 8 calcium, serum 9.7 mg/dL [facility] 8.6-10.2 8 carbon dioxide, venous blood 24 mmol/L [facility] 20-29 8 chloride, serum 100 mmol/L [facility] 96-106 8 potassium, serum 4.9 mmol/L [facility] 3.5-5.2 8 sodium, serum 138 mmol/L [facility] 469-034 1429/03/2 8 urea nitrogen/creatinine ratio, serum 20 [facility] 10-24 8 creatinine, serum 0.97 mg/dL [facility] 0.76-1.27 8 urea nitrogen, blood 19 mg/dL [facility] 8-27 8 blood glucose, random 102 mg/dL [facility] 70-99 High lipoprotein, beta, serum, point, quantitative, calculated 43 mg/dL [facility] 0-99 HDL cholesterol, serum 55 mg/dL [facility] >39 triglyceride, serum, random 98 mg/dL [facility] 0-149 cholesterol, serum 116 mg/dL [facility] 240-484 4897/03/0 7 alanine aminotransferase (SGPT), serum 519 1/L [facility] 0-44 Critical high aspartate aminotransferase (SGOT), serum 251 1/L [facility] 0-40 High alkaline phosphatase, serum 112 1/L [facility] 44-121 bilirubin, serum, total 0.4 mg/dL [facility] 0.0-1.2 albumin/globulin ratio, serum 1.8 [facility] 1.2-2.2 globulin, serum 2.4 [facility] 1.5-4.5 albumin, serum 4.2 g/dL [facility] 3.9-4.9 protein, total, serum 6.6 g/dL [facility] 6.0-8.5 calcium, serum 9.2 mg/dL [facility] 8.6-10.2 carbon dioxide, venous blood 21 mmol/L [facility] 20-29 chloride, serum 105 mmol/L [facility] 96-106 7 potassium, serum 5.0 mmol/L [facility] 3.5-5.2 sodium, serum 139 mmol/L [facility] 817-702 2539/03/0 7 urea nitrogen/creatinine ratio, serum 28 [facility] 10-24 High creatinine, serum 1.32 mg/dL [facility] 0.76-1.27 High urea nitrogen, blood 37 mg/dL [facility] 8-27 High blood glucose, random 112 mg/dL [facility] 70-99 High HISTORY OF MEDICATION USE Medication Status Instructions Dates Provider Indications Com ments Lopressor 50 mg tablet active Take 1 tablet by mouth twice a day Jessica Leon nitroglycerin 0.4 mg tablet, sublingual active 1 tablet under tongue as directed 1 tablet under tongue for chest pain. May repeat every 5 minutes if still having chest pain- to max of 3 tablets per episode.If no relief after 3rd dose, go to ER Jazzy Caldwell MD isosorbide mononitrate 30 mg tablet extended release 24 hr active TAKE 1 TABLET BY MOUTH ONCE DAILY Sarah Branch Nexletol 180 mg tablet active Take 1 tablet by mouth once a day Jazzy Caldwell MD Zetia 10 mg tablet active TAKE 1 TABLET BY MOUTH DAILY Jazzy Caldwell MD Lopressor 50 mg tablet completed Take 1 tablet by mouth twice a day - Jessica Leon Eliquis 2.5 mg tablet completed - Jazzy Caldwell MD isosorbide mononitrate 30 mg tablet extended release 24 hr completed Take 1 tablet by mouth once a day - Sarah Rushing Lopressor 50 mg tablet completed Take 1 tablet by mouth twice a day TAKE 1 TABLET BY MOUTH TWICE A DAY - Jessica Leon Trulicity 1.5 mg/0.5 mL pen injector active Jazzy Caldwell MD Farxiga 5 mg tablet active Jazzy Caldwell MD rosuvastatin 40 mg tablet completed TAKE 1 TABLET BY MOUTH EVERY DAY - Jazzy Caldwell MD lisinopril 20 mg tablet active Take 1 tablet by mouth once a day Jazzy Caldwell MD diclofenac sodium 75 mg tablet,delayed release (DR/EC) active Jazzy Caldwell MD SOCIAL HISTORY Date Observation Value Provider cigar use yes Jazzy shah MD smoking status Current every day smoker S mami Caldwell MD cigar use yes Jazzy shah MD smoking status Current every day smoker S mami Caldwell MD cigar use yes Jazzy shah MD smoking status Current every day smoker S mami Caldwell MD cigar use yes Cate Silva smoking status Current every day smoker F gus Silva cigar use yes Cate Silva smoking status Current every day smoker F gus Silva cigar use yes Kirsten Guevara smoking status Current every day smoker A izzy Guevara social history E&M smokes cigars Smoking History: P atsabi currently smokes every day. Jazzy Caldwell MD smoking status Current every day smoker F gus Silva number of grandchildren Jazzy Caldwell MD social history reviewed E&M revi ewed - no changes required Jazzy Caldwell MD social history E&M smokes cigars Smoking History: P atsabi currently smokes every day. Jazzy Cadlwell MD cigar use yes Zarigonzalo Alanis smoking status Current every day smoker S fabby Annabelle FUNCTIONAL STATUS Date Observation Value Provider HRA, CV Assess/Plan, Angina (inactive) Management Plan continue current therapy Jazzy Caldwell MD HRA, CV Assess/Plan, Angina (inactive) Management Plan continue current therapy Jazzy Caldwell MD HRA, CV Assess/Plan, Angina (inactive) Management Plan continue current therapy Jazzy Caldwell MD HRA, CV Assess/Plan, Angina (inactive) Management Plan continue current therapy Jazzy Caldwell MD HRA, CV Assess/Plan, Angina (inactive) Management Plan continue current therapy Jazzy Caldwell MD INSURANCE PROVIDERS Payer name Policy type / Coverage type [place] [employer] party ID [employer] MED[employer]ARE [employer]AGE [address] (HMO POS) Medicare [id number] ADVANCE DIRECTIVES Name Date DISCUSSED - NO DECISION MADE TREATMENT PLAN Date Name Performer [id number],C, n eeds to restart using CPAP Jazzy Cadlwell MD [id number],S, s mokes a few cigars daily, has not in past 3 months Jazzy Caldwell MD [id number],C, H is updated medication list for this problem includes: Rosuvastatin 20 Mg Tablet (Rosuvastatin) Jazzy Caldwell MD [id number],S, H is updated medication list for this problem includes: Lopressor 50 Mg Tablet (Metoprolol tartrate) ..... Take 1 tablet by mouth twice a day Lisinopril 20 Mg Tablet (Lisinopril) Jazzy Caldwell MD [id number],C, H is updated medication list for this problem includes: Trulicity 1.5 Mg/0.5 Ml Pen Injector (Dulaglutide) Farxiga 5 Mg Tablet (Dapagliflozin propanediol) Lisinopril 20 Mg Tablet (Lisinopril) Jazzy Caldwell MD [id number],C, n eeds echo and stress test N UCLEAR STRESS CONCLUSIONS: 1 . Normal sinus rhythm. The resting EKG shows right bundle branch block. 2 . Normal Regadenoson ECG with no ischemic ST or T changes, following vasodilator stress. 3 . No arrhythmias seen during stress portion of the exam. 4 . Normal left ventricle size. 5 . The calculation of left ventricular ejection fraction is compromised by gating difficulties due to EKG artifact. Left Ventricular E jection Fraction is 42 % TID: 0.96. 6 . Abnormal perfusion imaging in the apical region with a moderate perfusion defect, which is large in size and and appears f ixed. Abnormal perfusion imaging in the mid inferior region with a mild perfusion defect, which is medium in size and and a ppears fixed. ECHO CONCLUSIONS: 1 . Normal left ventricular systolic function. Normal left ventricular size. Normal left ventricular wall thickness. There is E to A w ave reversal consistent with impaired LV relaxation. E/E': 6.5 Left ventricular ejection fraction is measured at 60 %. 2 . Mild enlargement of right ventricle. Normal right ventricular systolic function. 3 . No significant valvular abnormalities. E lectronically signed by Jazzy Caldwell MD on 01/11/2023 at 11:49 AM Jazzy Caldwell MD [id number],C, n eeds echo and stress test, has bad family hx and he has multiple risk factors Review of stress and echo show there is a fixed defect at the apex and inferior segment with an EF of 42% and an echo that shows an EF at 60%. I am suspecting that he has attenuation artifact affectng his stress read. With his family hx of heart disease, I would suggest that we do a diagnostic cath at least, to evaluate for CAD for pre-op risk assessment. This was discussed with the pt, images were reviewed. Will arrange for this to be done as an outpatient. He is aware that surgery may be delayed if significant occlusive CAD is identified. Will add lopressor 25mg BID and Imdur 30mg daily and get him started on these meds in anticpation of needing surgery Jazzy Caldwell MD [id number],S,on med rx per PCP Jazzy Caldwell MD [id number],C,needs to rest art using CPAP Jazzy Caldwell MD [id number],C,w as on CPAP before, has not used for several years Jazzy Caldwell MD [id number],C,s mokes a few cigars daily, has not in past 3 months Jazzy Caldwell MD [id number],S,T C 179, Trig 161, HDL 61, LDL 90 vLDL 28 O rders: 9 9205 HIGH 60-74 min (CPT-33513) C omplete Echo (CPT-20796) S tress Regadenoson (CPT-31454) Jazzy Caldwell MD [id number],S,needs echo an d stress test Jazzy Caldwell MD [id number],S,n eeds echo and stress test, has bad family hx and he has multiple risk factors Jazzy Caldwell MD Cardiology: L FTs have come down. We will add nexerol with Zetia. L FTs still remain elevated. Will try Zetia instead of a statin. c heck labs Jazzy Caldwell MD Cardiology: H is updated medication list for this problem includes: Lopressor 50 Mg Tablet (Metoprolol tartrate) ..... Take 1 tablet by mouth twice a day take 1 tablet by mouth twice a day Lisinopril 20 Mg Tablet (Lisinopril) BP today: 107/69 P rior BP: 110/72 (01/16/2024) Labs Reviewed: C reat: 0.88 (11/30/2023) C hol: 197 (11/30/2023) HDL: 50 (11/30/2023) LDL: 105 (11/30/2023) T (11/30/2023) Jazzy Caldwell MD Cardiology:The patie nt is using CPAP on a regular basis. The patient has been benefiting from therapy and should continue use. T his visit has been a part of the consistent, comprehensive, and ongoing management of the chronic medical condition(s) listed above for the patient. Jazzy Caldwell MD Cardiology: T his visit has been a part of the consistent, comprehensive, and ongoing management of the chronic medical condition(s) listed above for the patient. Left ventriculogram was performed. Normal left ventricular wall m otion and ejection fraction. EF is estimated at roughly 60%. There i s no significant MR appreciated. Aortic pressure was noted to be 1 with a mean arterial pressure of 70. Left ventricular p ressure is 114/8 with an EDP of 6. I MPRESSION: 1 . Moderate coronary artery disease involving the mid left anterior d escending just beyond the 3rd diagonal bifurcation. 2 . Equivalent sized left anterior descending and 3rd diagonal vessel. 3 . Calcific shadowing noted at the site of the left anterior descending j ust beyond the 3rd diagonal takeoff. 4 . Preserved left ventricular systolic function with an ejection f raction estimated at 60%. 5 . Normal systemic blood pressure and normal left ventricular e nd-diastolic pressure. May 25, 2023 A t present, will arrange for PET scan to be done n 6 months to 1 year to evaluate LAD stenosis October 03, 2023 N ever got PET scan. Will arrange. Eval mid distal LAD. H igh BMI T his visit has been a part of the consistent, comprehensive, and ongoing management of the chronic medical condition(s) listed above for the patient. January 16, 2024 H E had PET/CT showing Abnormal imaging in the apical region with a mild perfusion defect, which is small in size, and has complete reversibility. Abnormal imaging in the mid anterolateral region with a mild perfusion defect, which is medium in size, and has complete reversibility. In the absence of symptoms, no plans to do cath at present. Continue medrx. Jazzy Caldwell MD Cardiology:RBBB unch anged on EKG w as on CPAP before, has not used for several years Jazzy Caldwell MD Cardiology: N ot smoking Jazzy Caldwell MD Cardiology: T his visit has been a part of the consistent, comprehensive, and ongoing management of the chronic medical condition(s) listed above for the patient. T he patient is using CPAP on a regular basis. The patient has been benefiting from therapy and should continue use. was on CPAP before, has not used for several years On CPAP T his visit has been a part of the consistent, comprehensive, and ongoing management of the chronic medical condition(s) listed above for the patient. The patient is using CPAP on a regular basis. The patient has been benefiting from therapy and should continue use. Jazzy Caldwell MD Cardiology: T his visit has been a part of the consistent, comprehensive, and ongoing management of the chronic medical condition(s) listed above for the patient. Left ventriculogram was performed. Normal left ventricular wall m otion and ejection fraction. EF is estimated at roughly 60%. There i s no significant MR appreciated. Aortic pressure was noted to be 1 04/47 with a mean arterial pressure of 70. Left ventricular p ressure is 114/8 with an EDP of 6. I MPRESSION: 1 . Moderate coronary artery disease involving the mid left anterior d escending just beyond the 3rd diagonal bifurcation. 2 . Equivalent sized left anterior descending and 3rd diagonal vessel. 3 . Calcific shadowing noted at the site of the left anterior descending j ust beyond the 3rd diagonal takeoff. 4 . Preserved left ventricular systolic function with an ejection f raction estimated at 60%. 5 . Normal systemic blood pressure and normal left ventricular e nd-diastolic pressure. May 25, 2023 A t present, will arrange for PET scan to be done n 6 months to 1 year to evaluate LAD stenosis October 03, 2023 N ever got PET scan. Will arrange. Eval mid distal LAD. H igh BMI T his visit has been a part of the consistent, comprehensive, and ongoing management of the chronic medical condition(s) listed above for the patient. O ct2023 H E had PET/CT showing Abnormal imaging in the apical region with a mild perfusion defect, which is small in size, and has complete reversibility. Abnormal imaging in the mid anterolateral region with a mild perfusion defect, which is medium in size, and has complete reversibility. In the absence of symptoms, no plans to do cath at present. Continue medrx. Jazzy Caldwell MD Cardiology: H is updated medication list for this problem includes: Lopressor 50 Mg Tablet (Metoprolol tartrate) ..... Take 1 tablet by mouth twice a day take 1 tablet by mouth twice a day Lisinopril 20 Mg Tablet (Lisinopril) BP today: 110/72 P rior BP: 119/69 (10/03/2023) T his visit has been a part of the consistent, comprehensive, and ongoing management of the chronic medical condition(s) listed above for the patient. L abs Reviewed: C reat: 0.88 (11/30/2023) C hol: 197 (11/30/2023) HDL: 50 (11/30/2023) LDL: 105 (11/30/2023) T (11/30/2023) Jazzy Caldwell MD Cardiology:LFTs have come down. We will add nexerol with Zetia. L FTs still remain elevated. Will try Zetia instead of a statin. Jazzy Caldwell MD Cardiology:This visi t has been a part of the consistent, comprehensive, and ongoing management of the chronic medical condition(s) listed above for the patient. His updated medication list for this problem includes: Lopressor 50 Mg Tablet (Metoprolol tartrate) ..... Take 1 tablet by mouth twice a day take 1 tablet by mouth twice a day Lisinopril 20 Mg Tablet (Lisinopril) & #13;BP today: 119/69 P rior BP: 119/75 (07/02/2023) Labs Reviewed: C reat: 0.91 (09/29/2023) C hol: 213 (09/29/2023) HDL: 65 (09/29/2023) LDL: 126 (09/29/2023) T (09/29/2023) Jazzy Caldwell MD Cardiology: N ot smoking Jazzy Caldwell MD Cardiology:This visi t has been a part of the consistent, comprehensive, and ongoing management of the chronic medical condition(s) listed above for the patient. T he patient is using CPAP on a regular basis. The patient has been benefiting from therapy and should continue use. was on CPAP before, has not used for several years On CPAP Jazzy Caldwell MD Cardiology:Arrange for PET scan. Jazzy Caldwell MD Cardiology:This visi t has been a part of the consistent, comprehensive, and ongoing management of the chronic medical condition(s) listed above for the patient. Left ventriculogram was performed. Normal left ventricular wall m otion and ejection fraction. EF is estimated at roughly 60%. There i s no significant MR appreciated. Aortic pressure was noted to be 1 04/47 with a mean arterial pressure of 70. Left ventricular p ressure is 114/8 with an EDP of 6. I MPRESSION: 1 . Moderate coronary artery disease involving the mid left anterior d escending just beyond the 3rd diagonal bifurcation. 2 . Equivalent sized left anterior descending and 3rd diagonal vessel. 3 . Calcific shadowing noted at the site of the left anterior descending j ust beyond the 3rd diagonal takeoff. 4 . Preserved left ventricular systolic function with an ejection f raction estimated at 60%. 5 . Normal systemic blood pressure and normal left ventricular end-diastolic pressure. May 25, 2023 A t present, will arrange for PET scan to be done n 6 months to 1 year to evaluate LAD stenosis October 03, 2023 N ever got PET scan. Will arrange. Eval mid distal LAD. H igh BMI Jazzy Caldwell MD Cardiology: A 1C was 5.7% H is updated medication list for this problem includes: Trulicity 1.5 Mg/0.5 Ml Pen Injector (Dulaglutide) Farxiga 5 Mg Tablet (Dapagliflozin propanediol) Lisinopril 20 Mg Tablet (Lisinopril) Jazzy Caldwell MD Cardiology:Not smoking Jazzy Caldwell MD Cardiology:LFTs stil l remain elevated. Will try Zetia instead of a statin. Jazzy Caldwell MD Cardiology: n eeds echo and stress test N UCLEAR STRESS CONCLUSIONS: 1 . Normal sinus rhythm. The resting EKG shows right bundle branch block. 2 . Normal Regadenoson ECG with no ischemic ST or T changes, following vasodilator stress. 3 . No arrhythmias seen during stress portion of the exam. 4 . Normal left ventricle size. 5 . The calculation of left ventricular ejection fraction is compromised by gating difficulties due to EKG artifact. Left Ventricular E jection Fraction is 42 % TID: 0.96. 6 . Abnormal perfusion imaging in the apical region with a moderate perfusion defect, which is large in size and and appears f ixed. Abnormal perfusion imaging in the mid inferior region with a mild perfusion defect, which is medium in size and and a ppears fixed. & #13;ECHO CONCLUSIONS: 1 . Normal left ventricular systolic function. Normal left ventricular size. Normal left ventricular wall thickness. There is E to A w ave reversal consistent with impaired LV relaxation. E/E': 6.5 Left ventricular ejection fraction is measured at 60 %. 2 . Mild enlargement of right ventricle. Normal right ventricular systolic function. 3 . No significant valvular abnormalities. E lectronically signed by Jazzy Caldwell MD on 01/11/2023 at 11:49 AM Jazzy Caldwell MD Cardiology:Was getti ng dizziness, saw ENT, no vertigo. Ovi reduce lisinopril to 10 H is updated medication list for this problem includes: Lopressor 50 Mg Tablet (Metoprolol tartrate) ..... Take 1 tablet by mouth twice a day take 1 tablet by mouth twice a day Lisinopril 20 Mg Tablet (Lisinopril) D iscussion of benefits for remote patient monitoring took place. Patient gives consent for remote monitoring of physiologic parameters including, but not limited to, weight, blood pressure, pulse oximetry, respiratory flow rate. Jazzy Caldwell MD Cardiology: L eft ventriculogram was performed. Normal left ventricular wall m otion and ejection fraction. EF is estimated at roughly 60%. There i s no significant MR appreciated. Aortic pressure was noted to be 1 04/47 with a mean arterial pressure of 70. Left ventricular p ressure is 114/8 with an EDP of 6. I MPRESSION: 1 . Moderate coronary artery disease involving the mid left anterior d escending just beyond the 3rd diagonal bifurcation. 2 . Equivalent sized left anterior descending and 3rd diagonal vessel. 3 . Calcific shadowing noted at the site of the left anterior descending j ust beyond the 3rd diagonal takeoff. 4 . Preserved left ventricular systolic function with an ejection f raction estimated at 60%. 5 . Normal systemic blood pressure and normal left ventricular e nd-diastolic pressure. May 25, 2023 A t present, will arrange for PET scan to be done n 6 months to 1 year to evaluate LAD stenosis Jazzy Caldwell MD Cardiology: L eft ventriculogram was performed. Normal left ventricular wall m otion and ejection fraction. EF is estimated at roughly 60%. There i s no significant MR appreciated. Aortic pressure was noted to be 1 04/47 with a mean arterial pressure of 70. Left ventricular p ressure is 114/8 with an EDP of 6. I MPRESSION: 1 . Moderate coronary artery disease involving the mid left anterior d escending just beyond the 3rd diagonal bifurcation. 2 . Equivalent sized left anterior descending and 3rd diagonal vessel. 3 . Calcific shadowing noted at the site of the left anterior descending j ust beyond the 3rd diagonal takeoff. 4 . Preserved left ventricular systolic function with an ejection f raction estimated at 60%. 5 . Normal systemic blood pressure and normal left ventricular e nd-diastolic pressure. May 25, 2023 A t present, will arrange for PET scan to be done n 6 months to 1 year to evaluate LAD stenosis Jazzy Caldwell MD Cardiology:Did well with his rig ht hip surgery Jazzy Caldwell MD Cardiology: A 1C was 5.7% H is updated medication list for this problem includes: Trulicity 1.5 Mg/0.5 Ml Pen Injector (Dulaglutide) Farxiga 5 Mg Tablet (Dapagliflozin propanediol) Lisinopril 20 Mg Tablet (Lisinopril) Jazzy Caldwell MD Cardiology: B P today: 107/65 P rior BP: 109/69 (02/22/2023) Labs Reviewed: C reat: 1.32 (05/24/2023) C hol: 116 (05/24/2023) HDL: 55 (05/24/2023) LDL: 43 (05/24/2023) T (05/24/2023) His updated medication list for this problem includes: Lopressor 50 Mg Tablet (Metoprolol tartrate) ..... Take 1 tablet by mouth twice a day take 1 tablet by mouth twice a day Lisinopril 20 Mg Tablet (Lisinopril) Jazzy Caldwell MD Cardiology:Elevated LFTs on lab work. A lkaline Phosphatase 112 IU/L 44-121 AST (SGOT) [H] 251 IU/L 0-40 ALT (SGPT) [HH] 519 IU/L 0-44 CHOL: 116 (05/24/2023) LDL: 43 (05/24/2023) HDL: 55 (05/24/2023) T (05/24/2023) S [employer]. TOLD HIM TO STOP DRINKING. Jazzy Caldwell MD Cardiology: n eeds to restart using CPAP February 22, 2023 T he patient is using CPAP on a regular basis. The patient has been benefiting from therapy and should continue use. May 25, 2023 T he patient is using CPAP on a regular basis. The patient has been benefiting from therapy and should continue use. Jazzy Caldwell MD Cardiology:Did well with his Ortho surgery. On DVT Prophalaxis with Eliquis Jazzy Caldwell MD Cardiology:Left vent riculogram was performed. Normal left ventricular wall m otion and ejection fraction. EF is estimated at roughly 60%. There i s no significant MR appreciated. Aortic pressure was noted to be 1 04/47 with a mean arterial pressure of 70. Left ventricular p ressure is 114/8 with an EDP of 6. I MPRESSION: 1 . Moderate coronary artery disease involving the mid left anterior d escending just beyond the 3rd diagonal bifurcation. 2 . Equivalent sized left anterior descending and 3rd diagonal vessel. 3 . Calcific shadowing noted at the site of the left anterior descending j ust beyond the 3rd diagonal takeoff. 4 . Preserved left ventricular systolic function with an ejection f raction estimated at 60%. 5 . Normal systemic blood pressure and normal left ventricular e nd-diastolic pressure. Jazzy Caldwell MD Cardiology Jazzy Caldwell MD Cardiology:Increase Crestor to 40mg to get LDL below 79 His updated medication list for this problem includes: Rosuvastatin 20 Mg Tablet (Rosuvastatin) Jazzy Caldwell MD Cardiology:A1C was 5 .7% H is updated medication list for this problem includes: Trulicity 1.5 Mg/0.5 Ml Pen Injector (Dulaglutide) Farxiga 5 Mg Tablet (Dapagliflozin propanediol) Lisinopril 20 Mg Tablet (Lisinopril) Jazzy Caldwell MD Cardiology: n eeds to restart using CPAP February 22, 2023 T he patient is using CPAP on a regular basis. The patient has been benefiting from therapy and should continue use. Jazzy Caldwell MD Cardiology: n eeds to restart using CPAP Jazzy Caldwell MD Cardiology: s mokes a few cigars daily, has not in past 3 months Jazzy Caldwell MD Cardiology: H is updated medication list for this problem includes: Rosuvastatin 20 Mg Tablet (Rosuvastatin) Jazzy Caldwell MD Cardiology: H is updated medication list for this problem includes: Lopressor 50 Mg Tablet (Metoprolol tartrate) ..... Take 1 tablet by mouth twice a day Lisinopril 20 Mg Tablet (Lisinopril) Jazzy Caldwell MD Cardiology: H is updated medication list for this problem includes: Trulicity 1.5 Mg/0.5 Ml Pen Injector (Dulaglutide) Farxiga 5 Mg Tablet (Dapagliflozin propanediol) Lisinopril 20 Mg Tablet (Lisinopril) Jazzy Caldwell MD Cardiology: n eeds echo and stress test N UCLEAR STRESS CONCLUSIONS: 1 . Normal sinus rhythm. The resting EKG shows right bundle branch block. 2 . Normal Regadenoson ECG with no ischemic ST or T changes, following vasodilator stress. 3 . No arrhythmias seen during stress portion of the exam. 4 . Normal left ventricle size. 5 . The calculation of left ventricular ejection fraction is compromised by gating difficulties due to EKG artifact. Left Ventricular E jection Fraction is 42 % TID: 0.96. 6 . Abnormal perfusion imaging in the apical region with a moderate perfusion defect, which is large in size and and appears f ixed. Abnormal perfusion imaging in the mid inferior region with a mild perfusion defect, which is medium in size and and a ppears fixed. & #13;ECHO CONCLUSIONS: 1 . Normal left ventricular systolic function. Normal left ventricular size. Normal left ventricular wall thickness. There is E to A w ave reversal consistent with impaired LV relaxation. E/E': 6.5 Left ventricular ejection fraction is measured at 60 %. 2 . Mild enlargement of right ventricle. Normal right ventricular systolic function. 3 . No significant valvular abnormalities. E lectronically signed by Jazzy Caldwell MD on 01/11/2023 at 11:49 AM Jazzy Caldwell MD Cardiology: n eeds echo and stress test, has bad family hx and he has multiple risk factors Review of stress and echo show there is a fixed defect at the apex and inferior segment with an EF of 42% and an echo that shows an EF at 60%. I am suspecting that he has attenuation artifact affectng his stress read. With his family hx of heart disease, I would suggest that we do a diagnostic cath at least, to evaluate for CAD for pre-op risk assessment. This was discussed with the pt, images were reviewed. Will arrange for this to be done as an outpatient. He is aware that surgery may be delayed if significant occlusive CAD is identified. Will add lopressor 25mg BID and Imdur 30mg daily and get him started on these meds in anticpation of needing surgery Jazzy Caldwell MD Cardiology:on med rx per PCP Chidi Caldwell MD Cardiology:needs to restart usin g CPAP Jazzy Caldwell MD Cardiology:was on CP AP before, has not used for several years Jazzy Caldwell MD Cardiology:smokes a few cigars daily, has not in past 3 months Jazzy Caldwell MD Cardiology:TC 179, T rig 161, HDL 61, LDL 90 vLDL 28 O rders: 9 9205 HIGH 60-74 min (CPT-83473) C omplete Echo (CPT-20674) S tress Regadenoson (CPT-43076) Jazzy Caldwell MD Cardiology:needs echo and stress test Jazzy Caldwell MD Cardiology:needs ech o and stress test, has bad family hx and he has multiple risk factors Jazzy Caldwell MD Date Name TSH, free T4, total T3 HEMOGLOBIN A1c Lipoprotein (a) LIPID PANEL COMPREHENSIVE METABO LIC PANEL, W/EGFR Stress Cardiac PET-C T LIPID PANEL COMPREHENSIVE METABO LIC PANEL, W/EGFR RPM (remote patient monitoring) EKG LIPID PANEL COMPREHENSIVE METABO LIC PANEL, W/EGFR LIPID PANEL COMPREHENSIVE METABO LIC PANEL, W/EGFR LIPID PANEL COMPREHENSIVE METABO LIC PANEL, W/EGFR Stress Regadenoson Complete Echo HISTORY OF PROCEDURES Procedure Date Procedure Name Provider Procedure Notes S tatus Complex e/m visit ad d on Jazzy Caldwell MD completed LENCHO Caldwell MD compl eted Complex e/m visit ad d on Jazzy Caldwell MD completed LENCHO Caldwell MD compl eted Complex e/m visit ad d on Jazzy Caldwell MD [11/01/2023 - [facility]] auth approved [place] [id number] completed LENCHO Caldwell MD [ - [facility]] auth approved for [id number] completed LENCHO Caldwell MD compl eted LENCHO Caldwell MD compl eted
--- OUTSIDE RECORDS SUMMARY | 2024-07-23 16:17 | XMS_ITS | CONTINUITY OF CARE DOCUMENT ---
Author Name anamikaheaven anamikaheaven Address Unknown Organization [facility] Address [address] [place] [address] Phone [phone] Care Team Providers Care Nailhead Puncher Name Role Phone Javi MAX, Jazzy Peres Unavailable [phone] IRISH BLOUNT MD Unavailable SOO KNOWLES Unavailable PROBLEMS Condition Status Date Provider Notes Cardiology [...] In-person encounter Office Visit Jazzy Caldwell MD [facility] - In-person encounter Office Visit Jazzy Caldwell MD [facility] - In-person encounter Office Visit Jazzy Caldwell MD [facility] Body mass index (BMI) 36.0-36.9, adult - In-person encounter Office Visit Jazzy Caldwell MD [facility] - In-person encounter Office Visit Jazzy Caldwell MD [facility] - In-person encounter Office Visit Jazzy Caldwell MD [facility] CAD - In-person encounter Office Visit Jazzy Caldwell MD [facility] - In-person encounter Office Visit Jazzy Caldwell MD [facility] Cardiology examinationHyperlipidemiaHypertensionPreop cardiovasc. examinationTobacco abuseFamily Hx [...] Leon pulse rate 86 /min Jessica Rush [facility] weight E&M 250 [lb_av] Jessica Rush [facility] height E&M 68 [in_i] Jessica Rush [facility] Body Mass Index (Ratio) 36.49 kg/m2 [facility] respiratory rate E&M 18 /min Mehul Deon blood pressure, cuff size regular Do [facility] oxygen saturation, oximetry 96 % [facility], [facility] 69 mm[Hg] Do [facility] blood pressure, systolic 119 mm[Hg] Jose Maria fuentes Deon pulse rate 82 /min [facility]&M 240 [lb_av] [facility] E&M 68 [in_i] [facility] Body Mass Index (Ratio) 34.51 kg/m2 Ml Caldwell MD pulse rate 81 /min [facility] blood pressure, cuff size regular Jasmyne [facility] blood pressure, diastolic 75 mm[Hg] Jasmyne [facility] blood pressure, systolic 119 mm[Hg] [facility], oximetry 95 % [facility] respiratory rate E&M 14 /min Cate Whiteside iller weight E&M 227 [lb_av] [facility] height E&M 68 [in_i] [facility] Body Mass Index (Ratio) 34.51 kg/m2 Ml Caldwell MD blood pressure, cuff size regular Jasmyne [facility] blood pressure, diastolic 65 mm[Hg] [facility] blood pressure, systolic 107 mm[Hg] Kenney [facility] weight E&M 227 [lb_av] [facility] pulse rate 66 /min [facility] oxygen saturation, oximetry 95 % [facility] respiratory rate E&M 18 /min [facility] iller height E&M 68 [in_i] [facility] Body Mass Index (Ratio) 34.97 kg/m2 Renan Iorfida pulse rate 82 /min Kirsten Langley blood pressure, diastolic 69 mm[Hg] An stephane Langley blood pressure, systolic 109 mm[Hg] Any alyssa Langley oxygen saturation, oximetry 98 % [facility]&M 230 [lb_av] Kirsten Langley blood pressure, cuff size large An [facility] height E&M 68 [in_i] [facility] Body Mass Index (Ratio) 35.12 kg/m2 Ml Caldwell MD oxygen saturation, oximetry 95 % [facility] respiratory rate E&M 16 /min [facility] iller pulse rate 93 /min [facility] weight E&M 231 [lb_av] [facility] height E&M 68 [in_i] [facility] Body Mass Index (Ratio) 35.73 kg/m2 Ml [...] High 3 cholesterol, serum 197 mg/dL [employer] [phone]/09/1 3 alanine aminotransferase (SGPT), serum 28 1/L [...] 3.5-5.2 3 sodium, serum 140 mmol/L [employer] [phone]/09/1 3 urea nitrogen/creatinine ratio, serum 23 [employer] [...] 3.5-5.2 3 sodium, serum 140 mmol/L [employer] [phone]/07/1 3 urea nitrogen/creatinine ratio, serum 21 [employer] [...] 0-149 8 cholesterol, serum 198 mg/dL [facility] [phone]/03/2 8 alanine aminotransferase (SGPT), serum 112 1/L [...] 3.5-5.2 8 sodium, serum 138 mmol/L [employer] [phone]/03/2 8 urea nitrogen/creatinine ratio, serum 20 [employer] 10-24 8 creatinine, serum 0.97 mg/dL [facility] 0.76-1.27 8 urea nitrogen, blood 19 mg/dL [facility] 8-27 8 blood glucose, random 102 mg/dL [facility] 70-99 High lipoprotein, beta, serum, point, quantitative, calculated 43 mg/dL [facility] 0-99 HDL cholesterol, serum 55 mg/dL [employer] >39 triglyceride, serum, random 98 mg/dL [employer] 0-149 cholesterol, serum 116 mg/dL [facility] [phone]/03/0 7 alanine aminotransferase (SGPT), serum 519 1/L [...] [employer] 3.5-5.2 sodium, serum 139 mmol/L [employer] [phone]/03/0 7 urea nitrogen/creatinine ratio, serum 28 [employer] [...] S mami Caldwell MD cigar use yes Ctae Silva smoking status Current every day smoker [...] currently smokes every day. Jazzy Caldwell MD cigar use yes Zarigonzalo Alanis smoking [...] Payer name Policy type / Coverage type [place] red green party ID [employer]AGE [address] (HMO POS) Medicare [id number] ADVANCE DIRECTIVES Name Date DISCUSSED - NO DECISION MADE TREATMENT PLAN Date Name Performer [id number],C, n eeds to restart using CPAP Jazzy Caldwell MD [id number],S, s mokes a few cigars daily, has not in past 3 months Jazzy Caldwell MD [id number],C, H is updated medication list for this problem includes: Rosuvastatin 20 Mg Tablet (Rosuvastatin) Jazzy Caldwell MD [id number],S, H is updated medication list for this problem includes: Lopressor 50 Mg Tablet (Metoprolol tartrate) ..... Take 1 tablet by mouth twice a day Lisinopril 20 Mg Tablet (Lisinopril) Jazzy Caldwell MD [id number],C, H is updated medication list for this problem includes: Trulicity 1.5 Mg/0.5 Ml Pen Injector (Dulaglutide) Farxiga 5 Mg Tablet (Dapagliflozin propanediol) Lisinopril 20 Mg Tablet (Lisinopril) Jazzy Caldwell MD [id number],C, n eeds echo and stress test N [...] 01/11/2023 at 11:49 AM Jazzy Caldwell MD [id number],C, n eeds echo and stress test, has [...] anticpation of needing surgery Jazzy Caldwell MD [id number],S,on med rx per PCP Jazzy Caldwell MD [id number],C,needs to rest art using CPAP Jazzy Caldwell MD [id number],C,w as on CPAP before, has not used for several years Jazzy Caldwell MD [id number],C,s mokes a few cigars daily, has not in past 3 months Jazzy Caldwell MD [id number],S,T C 179, Trig 161, HDL 61, LDL 90 vLDL 28 O rders: 9 9205 HIGH 60-74 min (CPT-23334) C omplete Echo (CPT-64847) S tress Regadenoson (CPT-12194) Jazzy Caldwell MD [id number],S,needs echo an d stress test Jazzy Caldwell MD [id number],S,n eeds echo and stress test, has bad [...] 65 (09/29/2023) LDL: 126 (09/29/2023) T (09/29/2023) Jazyz Caldwell MD Cardiology: N ot smoking Jazzy [...] O rders: 9 9205 HIGH 60-74 min (CPT-30520) C omplete Echo (CPT-39540) S tress Regadenoson (CPT-07334) Jazzy Caldwell MD Cardiology:needs echo and stress [...] d on Jazzy Caldwell MD [11/01/2023 - [facility]] auth approved for [id number] completed LENCHO Caldwell MD [ - [facility]] auth approved for [id number] completed LENCHO Caldwell MD compl eted LENCHO Caldwell MD compl eted
[2024-07-23] MEDS: LACTATED RINGERS 1,000 ML 150 ML IV CONT (16:47)
[2024-07-23 16:51] LABS: Glucose Point of Care 113 mg/dl (65-105)
--- NOTE | 2024-07-23 17:10 | PM.HPGS ---
History of Present Illness History of Present Illness Consent: Risks, benefits, and alternatives have been discussed and questions answered. Patient agrees to proceed with procedure. Chief complaint: Food stuck in throat-Steak sandwich Narrative: Adal Talbot is a 68 year old male here after he eat steak sandwich for lunch and got stuck, since unable to even swallow saliva. He never had EGD, he says that previously had food getting stuck but never required medical assistance and will always pass. Review of Systems Review of Systems: All systems reviewed & are unremarkable except as noted in HPI and below PMFSH Past Medical History Medical History Hip replacement planned LAURA (obstructive sleep apnea) Hyperlipidemia HTN (hypertension) Diabetes Surgical History Surgical History History of arthroscopy of left knee History of carpal tunnel release of both wrists History of appendectomy Family History Family History Father Diabetes mellitus Heart disease Mother Diabetes mellitus Heart disease Sibling Diabetes mellitus Heart disease Social History Social History Social History: Currently lives at home with his . Surrogate decisionmaker: Swapnil Talbot, spouse. Code Status: Full Code. 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 2022 Alcohol intake: never Drinks per week: 12 Alcohol use details: varies Substance use: never Lack of Transportation: No Lack of Food: Never True Current Housing: I Have Housing Concerned About Future Housing: No Difficulty Paying Gas/Electric Bills: No Difficulty Paying for Meds: No Currently Unemployed: No Education: Associate Degree Difficulty w/ Childcare or Family Care: No Living arrangements: with family Occupation/Education: retired Gender identity (if verbalized by the patient): Male Spiritual care concerns: No Agree to blood products: Yes Meds Home Medications and Allergies Home Medications ?Medication ?Instructions ?Recorded ?Confirmed ?Type cholecalciferol (vitamin D3) 100 100 mcg PO DAILY 01/15/23 03/26/24 History mcg (4,000 unit) tablet isosorbide mononitrate 30 mg 30 mg PO DAILY 02/01/23 03/26/24 History tablet,extended release 24 hr metoprolol tartrate 50 mg tablet 50 mg PO BID 02/01/23 03/26/24 History aspirin 81 mg tablet,delayed 81 mg PO DAILY 06/25/23 03/26/24 History release (Adult Aspirin Regimen) ezetimibe 10 mg tablet 10 mg PO DAILY 07/25/23 03/26/24 History blood sugar diagnostic (OneTouch #300 ea 10/08/23 03/26/24 Rx Verio test strips) dapagliflozin propanediol 5 mg 5 mg PO DAILY #90 tabs 12/27/23 03/26/24 Rx tablet (Farxiga) fluticasone propionate 50 1 - 2 spray intranasal BID #48 mL 01/16/24 03/26/24 Rx mcg/actuation nasal spray,suspension (Flonase Allergy Relief) Nitroglycerin .Route 01/29/24 03/26/24 History azelastine 137 mcg (0.1 %) nasal 1 spray intranasal Q12H 01/29/24 03/26/24 History spray bempedoic acid 180 mg tablet 180 mg PO DAILY 01/29/24 03/26/24 History (Nexletol) lisinopril 5 mg tablet 5 mg PO DAILY 01/29/24 03/26/24 History azithromycin 250 mg tablet See Rx Instructions PO .COMPLEX #6 03/17/24 03/26/24 Rx tabs dulaglutide 3 mg/0.5 mL See Rx Instructions .Route 05/06/24 Rx subcutaneous pen injector .COMPLEX #6 mL (Trulicity) Allergies Allergy/AdvReac Type Severity Reaction Status Date / Time No Known Allergies Allergy Verified 07/23/24 16:42 Vital Signs Vital Signs - 24 hr 07/23/24 15:25 07/23/24 16:28 07/23/24 16:43 Temperature 97.9 F 97.9 F Pulse Rate 75 72 77 Respiratory Rate 16 16 18 Blood Pressure 113/71 113/83 124/60 Pulse Oximetry 98 97 97 Oxygen Delivery Room Air Room Air Exam Const: General: comfortable and no acute distress HENMT: Face/Nose/Sinus: Normal nares present Eyes: General: appearance normal, both eyes and all related structures Neck: Neck: no JVD Resp: Auscultation: clear to auscultation bilaterally Cardio: Rate: regular rate Rhythm: regular rhythm GI: Inspection: non-distended GI Palp: Yes Soft to palpation Skin: General skin exam: normal color Neuro: General: gait normal Speech: normal speech Extrem: General: normal to inspection Psych: Mental Status: mental status grossly normal Assessment and Plan Assessment and plan (1) Food impaction of esophagus: Qualifiers: Encounter type: initial encounter Qualified Code(s): T18.128A - Food in esophagus causing other injury, initial encounter; W44.F3XA - Food entering into or through a natural orifice, initial encounter Code(s): T18.128A - Food in esophagus causing other injury, initial encounter; W44.F3XA - Food entering into or through a natural orifice, initial encounter Status: Acute Assessment and Plan: will proceed with urgent EGD
--- NOTE | 2024-07-23 17:52 | P.PNAN_ITS ---
Anes - Initial Pre Proc Eval Procedure: Operation Date: 07/23/24 17:00 Proposed Procedures p Esophagogastroduodenoscopy - Reji Holm MD Date/Time: 07/23/24 17:52 Surgeon: Reji Holm MD Pre Op Diagnosis: Food stuck in throat-Steak sandwich Patient Data Age: 68 Gender: M Height: 1.75 m Weight: 113 kg Last Vital Signs Temp 36.6 C 07/23/24 16:43 Pulse 77 07/23/24 16:43 Resp 18 07/23/24 16:43 BP 124/60 07/23/24 16:43 Pulse Ox 97 07/23/24 16:43 O2 Del Method Room Air 07/23/24 16:43 Allergies Allergy/AdvReac Type Severity Reaction Status Date / Time No Known Allergies Allergy Verified 07/23/24 16:42 Home Medications ?Medication ?Instructions ?Recorded ?Confirmed ?Type cholecalciferol (vitamin D3) 100 100 mcg PO DAILY 01/15/23 03/26/24 History mcg (4,000 unit) tablet isosorbide mononitrate 30 mg 30 mg PO DAILY 02/01/23 03/26/24 History tablet,extended release 24 hr metoprolol tartrate 50 mg tablet 50 mg PO BID 02/01/23 03/26/24 History aspirin 81 mg tablet,delayed 81 mg PO DAILY 06/25/23 03/26/24 History release (Adult Aspirin Regimen) ezetimibe 10 mg tablet 10 mg PO DAILY 07/25/23 03/26/24 History blood sugar diagnostic (OneTouch #300 ea 10/08/23 03/26/24 Rx Verio test strips) dapagliflozin propanediol 5 mg 5 mg PO DAILY #90 tabs 12/27/23 03/26/24 Rx tablet (Farxiga) fluticasone propionate 50 1 - 2 spray intranasal BID #48 mL 01/16/24 03/26/24 Rx mcg/actuation nasal spray,suspension (Flonase Allergy Relief) Nitroglycerin .Route 01/29/24 03/26/24 History azelastine 137 mcg (0.1 %) nasal 1 spray intranasal Q12H 01/29/24 03/26/24 History spray bempedoic acid 180 mg tablet 180 mg PO DAILY 01/29/24 03/26/24 History (Nexletol) lisinopril 5 mg tablet 5 mg PO DAILY 01/29/24 03/26/24 History azithromycin 250 mg tablet See Rx Instructions PO .COMPLEX #6 03/17/24 03/26/24 Rx tabs dulaglutide 3 mg/0.5 mL See Rx Instructions .Route 05/06/24 Rx subcutaneous pen injector .COMPLEX #6 mL (Trulicity) Laboratory Tests 07/23/24 16:49 POC Capillary Glucose 113 H mg/dl (65-105) Patient hx anesthesia problems: none Family hx anesthesia problems: none Results Review: All pre-operative results and documents have been reviewed as part of the pre- operative evaluation. [facility] Past Medical History Medical History Hip replacement planned LAURA (obstructive sleep apnea) Hyperlipidemia HTN (hypertension) Diabetes Surgical History Surgical History History of arthroscopy of left knee History of carpal tunnel release of both wrists History of appendectomy Family History Family History Father Diabetes mellitus Heart disease Mother Diabetes mellitus Heart disease Sibling Diabetes mellitus Heart disease Social History Social History Social History: Currently lives at home with his . Surrogate decisionmaker: Swapnil Talbot, spouse. Code Status: Full Code. 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 2022 Alcohol intake: never Drinks per week: 12 Alcohol use details: varies Substance use: never Lack of Transportation: No Lack of Food: Never True Current Housing: I Have Housing Concerned About Future Housing: No Difficulty Paying Gas/Electric Bills: No Difficulty Paying for Meds: No Currently Unemployed: No Education: Associate Degree Difficulty w/ Childcare or Family Care: No Living arrangements: with family Occupation/Education: retired Gender identity (if verbalized by the patient): Male Spiritual care concerns: No Agree to blood products: Yes Jonathan - Laith Final PreProcedure Day of Procedure 07/23/24 17:52 Patient weight: obese Heart: regular rate and rhythm Lungs: clear to auscultation Airway: Mallampati scale class III Neurological: alert and oriented Last oral intake: >/= 8 hours ASA classification: III Emergent: no Anesthetic plan: proceed Anesthesia type and monitoring: general ETT and standard monitoring Results Review: All pre-operative results and documents have been reviewed as part of the pre- operative evaluation. Informed Consent: The patient's anesthetic plan and its attendant risks and benefits were discussed with the patient/family/POA. Questions were solicited and answers provided to the satisfaction of the patient/family/POA.
== END 2024-07-23 20:19 | disposition home or self-care (01) ==
LOC: ANHED 16:13 → ANHSURGERY 16:16
PROVIDERS: Emergency Provider Student in an Organized Health Care Education/Training Program; PCP Nurse Practitioner Adult Health; Visit Provider Internal Medicine Gastroenterology
PROC: 0DJ08ZZ Inspection of Upper Intestinal Tract, Via Natural or Artificial Opening Endoscopic (ICD-10-PCS; CPT 43239; principal; 2024-07-23 17:00)
DX: T18.128A Food in esophagus causing other injury, initial encounter (principal); K22.2 Esophageal obstruction; K20.90 Esophagitis, unspecified without bleeding; W44.F3XA Food entering into or through a natural orifice, initial encounter; I10 Essential (primary) hypertension; E78.5 Hyperlipidemia, unspecified; E11.9 Type 2 diabetes mellitus without complications; G47.33 Obstructive sleep apnea (adult) (pediatric); Z79.82 Long term (current) use of aspirin; Z87.891 Personal history of nicotine dependence; E66.9 Obesity, unspecified; Z68.36 Body mass index [BMI] 36.0-36.9, adult
CPT/HCPCS: 43239; 71046; 82948; 88305; 99285; J0330; J2003; J2704; J7120

== ENCOUNTER 2024-09-29 09:37 | Outpatient (CLI) | payer MEDICARE, SELFPAY ==
--- NOTE | ~2024-09-29 | XR_ITS ---
XR knee RT 3V Ordering provider: Celeste Ibanez APRN History: . PAIN IN RT KNEE . Comparison: None. FINDINGS: BONES: No acute fracture or dislocation. JOINT SPACES: Severe narrowing of the medial compartment. Marginal osteophytes in the knee and patell a. Bony structure is projected over the medial femoral condyle which may be synovial chondromatosis. SOFT TISSUES: Atherosclerotic changes. IMPRESSION: No acute osseous abnormality right knee. Severe osteoarthritic changes. Reviewed, dictated and finalized at location A.
== END 2024-09-29 09:38 | disposition home or self-care (01) ==
LOC: ANHBWCLAB 09:38 → ANHBWCIMG 09:39
PROVIDERS: PCP Nurse Practitioner Adult Health; Visit Provider Nurse Practitioner Adult Health
DX: M17.11 Unilateral primary osteoarthritis, right knee (principal)
CPT/HCPCS: 73562

== ENCOUNTER 2024-10-06 13:44 | Outpatient (CLI) | payer MEDICARE, SELFPAY ==
--- NOTE | ~2024-10-06 | MR_ITS ---
EXAMINATION: MR knee RT wo con DATE: 10/06/2024 14:24 INDICATION: Osteoarthritis of the right knee TECHNIQUE: Magnetic resonance imaging (MRI) of the right knee was performed without intravenous contr ast. Sequences included coronal PD-weighted FSE, coronal PD-weighted FS FSE, sagittal T2-weighted FS E, sagittal PD-weighted FS FSE and axial PD weighted fat saturated FSE. COMPARISON: None. FINDINGS: Medial compartment: Complex medial meniscal tear extending from the anterior horn to the posterior horn including a radia l tear near the posterior root. There is a large region of full-thickness cartilage loss along the me dial tibial plateau with minimal subarticular edema-like signal change along the anteromedial margin of the medial tibial plateau. Additional deep chondral ulceration with cortical irregularity and smal l central subchondral osteophytes and mild subarticular edema-like signal change being at the junctio n of the anterior to central weightbearing medial femoral condyle and extending into the posterior we ightbearing medial femoral condyle. Lateral compartment: Lateral meniscus is normal. Articular cartilage is normal. Patellofemoral compartment: Partial-thickness chondral ulceration and deep fissuring with underlying small central subchondral os teophyte inferior aspect of the trochlear groove. There is additional shallow chondral fissuring at t he central aspect of the lateral patellar facet. Small to moderate size marginal osteophytes are pres ent. Ligaments and tendons: Anterior and posterior cruciate ligaments are normal. The medial collateral ligament and the fibular collateral ligament complex are normal. The extensor mechanism is normal. The visualized medial and l ateral hamstring tendons as well as the iliotibial band are normal. Fluid: Moderate-sized knee joint effusion with mild synovitis along the posterior margin of Hoffa's fat pad. There is a 2.7 x 2.2 x 1.3 cm loose osteochondral body in the suprapatellar pouch situated between t he superior rim of the patella and a suprapatellar plical band. There is a small opening in the plica l band at this appears significantly smaller than the osteochondral body and likely precluding furthe r cephalad migration of the body. Osseous/other: Bone alignment is normal. No fracture or pathologic marrow replacing process. IMPRESSION: 1. Complex medial meniscal tear. 2. Osteoarthritis, severe with extensive high-grade chondromalacia in the medial compartment and mild with small regions of moderate and high-grade chondral malacia in the patellofemoral compartment. 3. Moderate-sized right knee joint effusion and large loose osteochondral body which appears trapped along the caudal margin of the suprapatellar plical band. Reviewed, dictated and finalized at location A. IMPRESSION: 1. Complex medial meniscal tear. 2. Osteoarthritis, severe with extensive high-grade chondromalacia in the media l compartment and mild with small regions of moderate and high-grade chondral m alacia in the patellofemoral compartment. 3. Moderate-sized right knee joint effusion and large loose osteochondral body which appears trapped along the caudal margin of the suprapatellar plical band.
== END 2024-10-06 13:45 | disposition home or self-care (01) ==
LOC: GOSHIMG 13:44
PROVIDERS: PCP Orthopaedic Surgery; Visit Provider Nurse Practitioner Adult Health
DX: M17.11 Unilateral primary osteoarthritis, right knee (principal); S83.231A Complex tear of medial meniscus, current injury, right knee, initial encounter; X58.XXXA Exposure to other specified factors, initial encounter
CPT/HCPCS: 73721

== ENCOUNTER 2024-10-23 03:06 | Day surgery (SDC) | payer MEDICARE, SELFPAY ==
[2024-09-29 15:17] VITALS: BMI 36.1
--- NOTE | 2024-10-08 11:41 | PC.NURSE ---
Called and spoke with patient regarding rescheduled EGD procedure. Per patient, no changes to health history and updated medication list. Updated patient with new date and time. No questions at this time.
[2024-10-23 07:51] VITALS: BP 132/76; PULSE 76; RESP 18; TEMP 36.3; O2SAT 97; BMI 36.5
[2024-10-23] MEDS: LACTATED RINGERS 1,000 ML 150 ML IV CONT (08:02)
--- NOTE | 2024-10-23 08:30 | WPDANESEPPF ---
Anes - Initial Pre Proc Eval Procedure: Operation Date: 10/23/24 09:00 Proposed Procedures p Esophagogastroduodenoscopy - Reji Holm MD Date/Time: 10/23/24 08:30 Surgeon: Reji Holm MD Pre Op Diagnosis: Food in esophagus causing other injury Patient Data Age: 69 Gender: M Height: 1.75 m Weight: 112.1 kg Last Vital Signs Temp 36.3 C L 10/23/24 07:51 Pulse 76 10/23/24 07:51 Resp 18 10/23/24 07:51 BP 132/76 10/23/24 07:51 Pulse Ox 97 10/23/24 07:51 O2 Del Method Room Air 10/23/24 07:51 Allergies Allergy/AdvReac Type Severity Reaction Status Date / Time Sulfa (Sulfonamide Allergy Intermediate Unknown Verified 10/08/24 11:40 Antibiotics) sulfamethoxazole (From Allergy Unknown Unknown Verified 10/08/24 11:40 Bactrim) trimethoprim (From Bactrim) Allergy Unknown Unknown Verified 10/08/24 11:40 [id number] Reductase AdvReac Intermediate Other Verified 10/08/24 11:40 Inhibitor Home Medications ?Medication ?Instructions ?Recorded ?Confirmed ?Type cholecalciferol (vitamin D3) 100 100 mcg PO DAILY 01/15/23 09/30/24 History mcg (4,000 unit) tablet isosorbide mononitrate 30 mg 30 mg PO DAILY 02/01/23 10/23/24 History tablet,extended release 24 hr metoprolol tartrate 50 mg tablet 50 mg PO BID 02/01/23 10/23/24 History aspirin 81 mg tablet,delayed 81 mg PO DAILY 06/25/23 09/30/24 History release (Adult Aspirin Regimen) ezetimibe 10 mg tablet 10 mg PO DAILY 07/25/23 09/30/24 History fluticasone propionate 50 1 - 2 spray intranasal BID #48 mL 01/16/24 09/30/24 Rx mcg/actuation nasal spray,suspension (Flonase Allergy Relief) Nitroglycerin .Route PRN chest pain 01/29/24 09/30/24 History azelastine 137 mcg (0.1 %) nasal 1 spray intranasal Q12H 01/29/24 09/30/24 History spray bempedoic acid 180 mg tablet 180 mg PO DAILY 01/29/24 09/30/24 History (Nexletol) lisinopril 5 mg tablet 5 mg PO DAILY 01/29/24 09/30/24 History dapagliflozin propanediol 5 mg 5 mg PO DAILY #90 tabs 08/06/24 09/30/24 Rx tablet (Farxiga) triamcinolone acetonide 0.025 % 1 applic topical DAILY #80 grams 08/06/24 09/30/24 Rx topical cream omeprazole 20 mg capsule,delayed 20 mg PO DAILY #90 caps 08/08/24 09/30/24 Rx release blood sugar diagnostic (OneTouch #200 strips 09/23/24 09/30/24 Rx Verio test strips) semaglutide 1 mg/dose (4 mg/3 mL) 1 mg (0.75 mL) subcut WEEKLY #3 mL 09/29/24 09/30/24 Rx subcutaneous pen injector (Ozempic) Laboratory Tests 10/23/24 07:56 POC Capillary Glucose 156 H mg/dl (65-105) Patient hx anesthesia problems: none Family hx anesthesia problems: none Results Review: All pre-operative results and documents have been reviewed as part of the pre-operative evaluation. [facility] Past Medical History Medical History Hip replacement planned LAURA (obstructive sleep apnea) Hyperlipidemia HTN (hypertension) Diabetes Surgical History Surgical History History of arthroscopy of left knee History of carpal tunnel release of both wrists History of appendectomy Family History Family History Father Diabetes mellitus Heart disease Mother Diabetes mellitus Heart disease Sibling Diabetes mellitus Heart disease Social History Social History Social History: Currently lives at home with his . Surrogate decisionmaker: Swapnil Pereiraball, spouse. Code Status: Full Code. 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 2022 Alcohol intake: never Drinks per week: 12 Alcohol use details: varies Substance use: never Substance use type: does not use Lack of Transportation: No Lack of Food: Never True Current Housing: I Have Housing Concerned About Future Housing: No Difficulty Paying Gas/Electric Bills: No Difficulty Paying for Meds: No Currently Unemployed: No Education: Associate Degree Difficulty w/ Childcare or Family Care: No Living arrangements: with family Occupation/Education: retired Gender identity (if verbalized by the patient): Male Spiritual care concerns: No Agree to blood products: Yes Anes - Eval Final PreProcedure Day of Procedure 10/23/24 08:30 Patient weight: obese Heart: regular rate and rhythm Lungs: clear to auscultation Airway: Mallampati scale class II Neurological: alert and oriented Last oral intake: >/= 8 hours ASA classification: III Emergent: no Anesthetic plan: proceed Anesthesia type and monitoring: general GIVS and standard monitoring Results Review: All pre-operative results and documents have been reviewed as part of the pre-operative evaluation. Informed Consent: The patient's anesthetic plan and its attendant risks and benefits were discussed with the patient/family/POA. Questions were solicited and answers provided to the satisfaction of the patient/family/POA.
--- NOTE | 2024-10-23 08:47 | PM.HPGS ---
History of Present Illness History of Present Illness Consent: Risks, benefits, and alternatives have been discussed and questions answered. Patient agrees to proceed with procedure. Chief complaint: Food in esophagus causing other injury Narrative: Adal Talbot is a 69 year old male with food bolus that required urgent EGD, still some dysphagia, he was started on ppi Review of Systems Review of Systems: All systems reviewed & are unremarkable except as noted in HPI and below PMFSH Past Medical History Medical History (Updated 10/23/24 @ 08:49 by Reji Holm MD) Dysphagia Hip replacement planned LAURA (obstructive sleep apnea) Hyperlipidemia HTN (hypertension) Diabetes Surgical History Surgical History History of arthroscopy of left knee History of carpal tunnel release of both wrists History of appendectomy Family History Family History Father Diabetes mellitus Heart disease Mother Diabetes mellitus Heart disease Sibling Diabetes mellitus Heart disease Social History Social History Social History: Currently lives at home with his . Surrogate decisionmaker: Swapnil Talbot, spouse. Code Status: Full Code. 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 2022 Alcohol intake: never Drinks per week: 12 Alcohol use details: varies Substance use: never Substance use type: does not use Lack of Transportation: No Lack of Food: Never True Current Housing: I Have Housing Concerned About Future Housing: No Difficulty Paying Gas/Electric Bills: No Difficulty Paying for Meds: No Currently Unemployed: No Education: Associate Degree Difficulty w/ Childcare or Family Care: No Living arrangements: with family Occupation/Education: retired Gender identity (if verbalized by the patient): Male Spiritual care concerns: No Agree to blood products: Yes Meds Home Medications and Allergies Home Medications ?Medication ?Instructions ?Recorded ?Confirmed ?Type cholecalciferol (vitamin D3) 100 100 mcg PO DAILY 01/15/23 09/30/24 History mcg (4,000 unit) tablet isosorbide mononitrate 30 mg 30 mg PO DAILY 02/01/23 10/23/24 History tablet,extended release 24 hr metoprolol tartrate 50 mg tablet 50 mg PO BID 02/01/23 10/23/24 History aspirin 81 mg tablet,delayed 81 mg PO DAILY 06/25/23 09/30/24 History release (Adult Aspirin Regimen) ezetimibe 10 mg tablet 10 mg PO DAILY 07/25/23 09/30/24 History fluticasone propionate 50 1 - 2 spray intranasal BID #48 mL 01/16/24 09/30/24 Rx mcg/actuation nasal spray,suspension (Flonase Allergy Relief) Nitroglycerin .Route PRN chest pain 01/29/24 09/30/24 History azelastine 137 mcg (0.1 %) nasal 1 spray intranasal Q12H 01/29/24 09/30/24 History spray bempedoic acid 180 mg tablet 180 mg PO DAILY 01/29/24 09/30/24 History (Nexletol) lisinopril 5 mg tablet 5 mg PO DAILY 01/29/24 09/30/24 History dapagliflozin propanediol 5 mg 5 mg PO DAILY #90 tabs 08/06/24 09/30/24 Rx tablet (Farxiga) triamcinolone acetonide 0.025 % 1 applic topical DAILY #80 grams 08/06/24 09/30/24 Rx topical cream omeprazole 20 mg capsule,delayed 20 mg PO DAILY #90 caps 08/08/24 09/30/24 Rx release blood sugar diagnostic (OneTouch #200 strips 09/23/24 09/30/24 Rx Verio test strips) semaglutide 1 mg/dose (4 mg/3 mL) 1 mg (0.75 mL) subcut WEEKLY #3 mL 09/29/24 09/30/24 Rx subcutaneous pen injector (Ozempic) Allergies Allergy/AdvReac Type Severity Reaction Status Date / Time Sulfa (Sulfonamide Allergy Intermediate Unknown Verified 10/08/24 11:40 Antibiotics) sulfamethoxazole (From Allergy Unknown Unknown Verified 10/08/24 11:40 Bactrim) trimethoprim (From Bactrim) Allergy Unknown Unknown Verified 10/08/24 11:40 [id number] Reductase AdvReac Intermediate Other Verified 10/08/24 11:40 Inhibitor Vital Signs Vital Signs - 24 hr 10/23/24 07:51 Temperature 97.3 F L Pulse Rate 76 Respiratory Rate 18 Blood Pressure 132/76 Pulse Oximetry 97 Oxygen Delivery Room Air Exam Const: General: comfortable and no acute distress HENMT: Face/Nose/Sinus: Normal nares present Eyes: General: appearance normal, both eyes and all related structures Neck: Neck: no JVD Resp: Auscultation: clear to auscultation bilaterally Cardio: Rate: regular rate Rhythm: regular rhythm GI: Inspection: non-distended GI Palp: Yes Soft to palpation Skin: General skin exam: normal color Neuro: Speech: normal speech Extrem: General: normal to inspection Psych: Mental Status: mental status grossly normal Assessment and Plan Assessment and plan (1) Dysphagia: Code(s): R13.10 - Dysphagia, unspecified Status: Acute Assessment and Plan: egd to reassess
--- NOTE | 2024-10-23 08:54 | S_PTH ---
PATIENT: Adal Talbot V LOC: [facility] Piper#:[id number] AGE/SX: 69/M ROOM: RE10/23/[address]: Reji Holm MD : [id number] BED: DIS: 10/23/2024 SPEC #: [id number] RECD: 10/23/24 09:08 STATUS: LIZBET TAMAYO #: [id number] LEANN: 10/23/24 08:[address]: Reji Holm DEPT: [facility] Surgical RECD BY: Niyah Torres ENTERED: 10/23/24 09:09 SP TYPE: Surgical OTHR DR: Celeste Ibanez APRN Tissues: A - Esophageal Biopsy B - Esophageal Biopsy Procedures: Hematoxylin and Eosin Stain Gross and Microscopic Level 4
[2024-10-23 08:57] VITALS: BP 99/62; PULSE 70; RESP 18; O2SAT 97
[2024-10-23 09:07] VITALS: BP 99/61; PULSE 69; RESP 18; O2SAT 99
[2024-10-23 09:17] VITALS: BP 99/61; PULSE 69; RESP 18; O2SAT 99
== END 2024-10-23 09:24 | disposition home or self-care (01) ==
PROVIDERS: PCP Nurse Practitioner Adult Health; Referring Provider Internal Medicine Gastroenterology; Visit Provider Internal Medicine Gastroenterology
PROC: 0DJ08ZZ Inspection of Upper Intestinal Tract, Via Natural or Artificial Opening Endoscopic (ICD-10-PCS; CPT 43239; principal; 2024-10-23 09:00)
DX: K21.00 Gastro-esophageal reflux disease with esophagitis, without bleeding (principal); E78.5 Hyperlipidemia, unspecified; I10 Essential (primary) hypertension; E11.9 Type 2 diabetes mellitus without complications; G47.33 Obstructive sleep apnea (adult) (pediatric); E66.9 Obesity, unspecified; Z68.36 Body mass index [BMI] 36.0-36.9, adult; Z79.82 Long term (current) use of aspirin; Z79.84 Long term (current) use of oral hypoglycemic drugs; Z79.85 Long-term (current) use of injectable non-insulin antidiabetic drugs; Z98.890 Other specified postprocedural states; Z87.891 Personal history of nicotine dependence; Z82.49 Family history of ischemic heart disease and other diseases of the circulatory system
CPT/HCPCS: 43239; 43450; 82948; 88305; J2003; J2704; J7120

== ENCOUNTER 2024-10-27 12:08 | Outpatient (CLI) | payer MEDICARE, SELFPAY ==
--- NOTE | 2024-10-27 12:23 | ECG_ITS ---
Test Date: 2024-10-27 12:32:46 Measurements Intervals [place] Rate: 58 P: 46 MS: 158 QRS: -11 QRSD: 138 T: 8 QT: 437 QTc: 430 Interpretive Statements SINUS BRADYCARDIA RIGHT BUNDLE BRANCH BLOCK INFERIOR INFARCT, AGE INDETERMINATE BASELINE ARTIFACT- I, II, AVR, AVL, AVF, V1 ABNORMAL ECG No previous ECG available for comparison Electronically Signed On 10-27-2024 13:20:08 CDT by Christ Contreras D.O.
[2024-10-27 12:45] LABS: Hematocrit 39.2 % (42.0-52.0); Hemoglobin 14.4 g/dL (14.0-18.0); Immature Granulocyte Percent A 1.3 % (0-0.5); Lymphocytes Absolute Auto 1.49 K/mm3 (0.9-3.2); Mean Corpuscular HGB Conc 36.7 g/dl (32-36); Mean Corpuscular Hemoglobin 37.2 pg (26-34); Mean Corpuscular Volume 101.3 fl (80-100); Nucleated Red Blood Cells Absolute Auto 0.000 K/mm3 (0.0-0.012); Nucleated Red Blood Cells Perc 0.0 % (0.0-0.2); Platelet Count Result 177 k/mm3 (150-375); Red Blood Count 3.87 M/mm3 (4.6-6.20); White Blood Count 5.3 K/mm3 (4.5-10.0)
[2024-10-27 13:17] LABS: Anion Gap 8 mmol/L (4-12); Blood Urea Nitrogen 21 mg/dL (9-20); Calcium 9.4 mg/dL (8.4-10.2); Carbon Dioxide 25 mmol/L (22-30); Chloride 103 mmol/L (98-107); Estimated Glomerular Filt Rate > 60; Glucose 132 mg/dL (65-110); Potassium 4.6 mmol/L (3.4-5.0); Sodium 136 mmol/L (137-145)
[2024-10-27 15:07] LABS: Hemoglobin A1C 6.8 % (<5.7)
[2024-10-27 15:14] LABS: Add Urine Microscopic? YES; Appearance Urine Clear (Clear); Glucose Urine UA 3+ mg/dL (Negative); Leukocyte Esterase Ur Negative LEU/UL (Negative); Nitrate Urine Negative (Negative); Non Pathogenic Casts 0-2; Specific Grav Ur 1.029 (1.001-1.035)
== END 2024-10-27 12:09 | disposition home or self-care (01) ==
PROVIDERS: PCP Nurse Practitioner Adult Health; Visit Provider Orthopaedic Surgery
DX: E11.9 Type 2 diabetes mellitus without complications (principal); E78.5 Hyperlipidemia, unspecified; I10 Essential (primary) hypertension; R53.83 Other fatigue
CPT/HCPCS: 36415; 80048; 81001; 83036; 85025; 93005

== ENCOUNTER 2024-11-13 13:43 | Outpatient (CLI) | payer MEDICARE, SELFPAY ==
[2024-11-13 15:34] LABS: Albumin Level 4.6 g/dL (3.5-5.1)
[2024-11-13 15:37] LABS: INR 1.0; Prothrombin Time 13.8 Seconds (11.1-14.7)
[2024-11-13 15:38] LABS: Partial Thromboplastin Time 34.3 Seconds (22.3-36.8)
[2024-11-13 16:29] LABS: MRSA (PCR) NOT DETECTED (NOT DETECTE)
== END 2024-11-13 13:44 | disposition home or self-care (01) ==
LOC: ANHSURGERY 13:46
PROVIDERS: PCP Nurse Practitioner Adult Health; Visit Provider Orthopaedic Surgery
DX: M17.9 Osteoarthritis of knee, unspecified (principal); Z01.818 Encounter for other preprocedural examination
CPT/HCPCS: 80307; 82040; 85610; 85730; 86850; 86900; 86901; 87641

== ENCOUNTER 2024-11-17 08:37 | Emergency (ER) | payer MEDICARE, SELFPAY ==
[2024-11-17 08:46] VITALS: BP 158/83; PULSE 89; RESP 20; O2SAT 96
[2024-11-17 08:52] VITALS: TEMP 36.5
[2024-11-17 09:02] LABS: Hematocrit 43.1 % (42.0-52.0); Hemoglobin 14.9 g/dL (14.0-18.0); Immature Granulocyte Percent A 0.5 % (0-0.5); Lymphocytes Absolute Auto 1.20 K/mm3 (0.9-3.2); Mean Corpuscular HGB Conc 34.6 g/dl (32-36); Mean Corpuscular Hemoglobin 33.3 pg (26-34); Mean Corpuscular Volume 96.2 fl (80-100); Nucleated Red Blood Cells Absolute Auto 0.000 K/mm3 (0.0-0.012); Nucleated Red Blood Cells Perc 0.0 % (0.0-0.2); Platelet Count Result 155 k/mm3 (150-375); Red Blood Count 4.48 M/mm3 (4.6-6.20); White Blood Count 5.6 K/mm3 (4.5-10.0)
--- NOTE | 2024-11-17 09:04 | ED.GENADULT ---
HPI - General Adult General Chief complaint: Abdominal Pain Stated complaint: diarrhea for 5 days, Time Seen by Provider: 11/17/24 08:39 History of Present Illness HPI narrative: 61-year-old male present to the emergency department for evaluation for diarrhea for the last 5 days. Patient does report associated abdominal cramping. Patient denies any associated nausea or vomiting. Patient was switched from Trulicity to Ozempic months ago and patient did have some diarrhea at that time. Patient states that was approximately 24 hours after the medications which. Patient states he had a knee medication increased for his was not back approximately 3 weeks ago and is only had symptoms of the increased diarrhea for the last 5 days. Patient also suspects this may be secondary to some fried chicken he had just prior to onset of the illness. Patient has been taking Imodium daily and this does improve within the symptoms do return. Patient does have history of hypertension, high cholesterol, type 2 diabetes Related Data Home Medications ?Medication ?Instructions ?Recorded ?Confirmed ?Last Taken ?Type cholecalciferol (vitamin D3) 100 100 mcg PO DAILY 01/15/23 11/13/24 01/29/23 History mcg (4,000 unit) tablet isosorbide mononitrate 30 mg 30 mg PO DAILY 02/01/23 11/13/24 10/23/24 History tablet,extended release 24 hr metoprolol tartrate 50 mg tablet 50 mg PO BID 02/01/23 11/13/24 10/23/24 History aspirin 81 mg tablet,delayed 81 mg PO DAILY 06/25/23 11/13/24 Unknown History release (Adult Aspirin Regimen) ezetimibe 10 mg tablet 10 mg PO DAILY 07/25/23 11/13/24 Unknown History Nitroglycerin 0.4 mg .Route .as PRN chest pain 01/29/24 11/13/24 Unknown History azelastine 137 mcg (0.1 %) nasal 1 spray intranasal Q12H 01/29/24 11/13/24 Unknown History spray bempedoic acid 180 mg tablet 180 mg PO DAILY 01/29/24 11/13/24 Unknown History (Nexletol) lisinopril 5 mg tablet 5 mg PO DAILY 01/29/24 11/13/24 Unknown History Allergies Allergy/AdvReac Type Severity Reaction Status Date / Time Sulfa (Sulfonamide Allergy Intermediate Unknown Verified 11/13/24 14:15 Antibiotics) sulfamethoxazole (From Allergy Unknown Unknown Verified 11/13/24 14:15 Bactrim) trimethoprim (From Bactrim) Allergy Unknown Unknown Verified 11/13/24 14:15 Wpdrghu-GWV-VtL Reductase AdvReac Intermediate Other Verified 11/13/24 14:15 Inhibitor Review of Systems Review of Systems: All systems reviewed & are unremarkable except as noted in HPI and below PMFSH Past Medical History Medical History Dysphagia Hip replacement planned LAURA (obstructive sleep apnea) Hyperlipidemia HTN (hypertension) Diabetes Surgical History Surgical History History of arthroscopy of left knee History of carpal tunnel release of both wrists History of appendectomy Family History Family History Father Diabetes mellitus Heart disease Mother Diabetes mellitus Heart disease Sibling Diabetes mellitus Heart disease Social History Social History Social History: Currently lives at home with his . Surrogate decisionmaker: Swapnil Pereiraball, spouse. Code Status: Full Code. Smoking packs per day: 1 Smoking cigarettes per day: 20.0 Years smoked: 18 Smoking pack-years: 18.00 Smoking status: Former smoker Tobacco type: cigarettes and cigars Smoking end date: 03/19/90 Additional smoking assessment comments: Denies nicotine today, but smoked a cigar a few weeks ago Alcohol intake: current Drinks per week: 21 Alcohol use details: varies Substance use: never Substance use type: does not use Lack of Transportation: No Lack of Food: Never True Current Housing: I Have Housing Concerned About Future Housing: No Difficulty Paying Gas/Electric Bills: No Difficulty Paying for Meds: No Currently Unemployed: No Education: Associate Degree Difficulty w/ Childcare or Family Care: No Living arrangements: with family Additional living arrangements comments: Occupation/Education: retired Gender identity (if verbalized by the patient): Male Spiritual care concerns: No Agree to blood products: Yes Exam Narrative: APPEARANCE: Well appearing, no pain, no distress, well-nourished. HEAD: normocephalic, atraumatic. EYES: PERRLA/EOMI, conjunctivae clear. NOSE: Normal no drainage EARS:TMS clear with good light reflex. THROAT: Pharynx clear, no exudate. NECK: Supple. No adenopathy, no masses. RESPIRATORY: Airway patent, respirations nonlabored. Clear to auscultation bilaterally, no rales, rhonchi, wheezing. CARDIOVASCULAR: Regular rate and rhythm without murmurs rubs or gallops. ABDOMINAL: Soft, nontender, nondistended, normal bowel sounds MUSCULOSKELETAL: Moves all extremities. Strength/ROM intact, No edema, No calf tenderness. NEURO: Alert. Cranial nerves II through XII intact. Good gait. Good coordination SKIN: Warm, dry. Normal Color Course Vital Signs Vital signs: Vital Signs Pulse Rate 89 11/17/24 08:46 Respiratory Rate 20 11/17/24 08:46 Blood Pressure 158/83 H 11/17/24 08:46 Pulse Oximetry 96 11/17/24 08:46 Oxygen Delivery Room Air 11/17/24 08:46 Temperature 97.7 F 11/17/24 08:52 Pulse Rate 84 11/17/24 12:21 Respiratory Rate 16 11/17/24 12:21 Blood Pressure 136/88 11/17/24 12:21 Pulse Oximetry 98 11/17/24 12:21 Oxygen Delivery Room Air 11/17/24 08:46 Medical Decision Making [facility] Narrative Medical decision making narrative: 61-year-old male presents emergency department for evaluation for diarrhea. Id patient is afebrile with no leukocytosis hemoglobin of 14.9. INR is 1.1. No acute abnormalities on his CMP UA was negative for infection, patient was negative for C diff. On re-evaluation patient has no significant tenderness to palpation. Patient family updated the results of the workup. Patient was advised to follow a clear liquid diet for the next few days. Patient was also encouraged close follow-up with primary care physician. Differential Diagnosis Differential Diagnosis: Colitis, diverticulitis, gastritis, UTI, intractable nausea vomiting, C diff Vital Signs Vital Signs: Vital Signs Pulse Rate 89 11/17/24 08:46 Respiratory Rate 20 11/17/24 08:46 Blood Pressure 158/83 H 11/17/24 08:46 Pulse Oximetry 96 11/17/24 08:46 Oxygen Delivery Room Air 11/17/24 08:46 Temperature 97.7 F 11/17/24 08:52 Pulse Rate 84 09/01/25 12:21 Respiratory Rate 16 11/17/24 12:21 Blood Pressure 136/88 11/17/24 12:21 Pulse Oximetry 98 11/17/24 12:21 Oxygen Delivery Room Air 11/17/24 08:46 Lab Data Lab results reviewed: Yes I reviewed the patient's lab results. 11/17/24 08:54 11/17/24 08:54 Labs: Lab Results 11/17/24 11/17/24 11/17/24 Range/Units 08:54 10:14 10:35 WBC 5.6 (4.5-10.0) K/mm3 RBC 4.48 L (4.6-6.20) M/mm3 Hgb 14.9 (14.0-18.0) g/dL Hct 43.1 (42.0-52.0) % MCV 96.2 (80-100) fl MCH 33.3 (26-34) pg MCHC 34.6 (32-36) g/dl RDW 12.6 (11.5-14.5) % Plt Count 155 (150-375) k/mm3 MPV 8.8 (7.4-10.4) fl Immature Gran % (Auto) 0.5 (0-0.5) % Neut % (Auto) 65.8 (45.5-73.1) % Lymph % (Auto) 21.5 (18.3-44.2) % Sac % (Auto) 10.4 H (2.6-8.5) % Eos % (Auto) 1.3 (0-4.4) % Baso % (Auto) 0.5 (0.2-1.2) % Lymph # (Auto) 1.20 (0.9-3.2) K/mm3 Sac # (Auto) 0.6 (0.1-0.6) K/mm3 Eos # (Auto) 0.1 (0-0.3) K/mm3 Baso # (Auto) 0.0 (0.0-0.1) K/mm3 Abs Immat Gran (auto) 0.03 (0.00-0.031) K/mm3 Absolute Neuts (auto) 3.7 (1.3-6.7) K/mm3 Absolute Nucleated RBC 0.000 (0.0-0.012) K/mm3 Nucleated RBC % 0.0 (0.0-0.2) % PT 14.0 (11.1-14.7) Seconds INR 1.1 APTT 30.9 (22.3-36.8) Seconds Sodium 136 L (137-145) mmol/L Potassium 4.2 (3.4-5.0) mmol/L Chloride 103 (98-107) mmol/L Carbon Dioxide 23 (22-30) mmol/L Anion Gap 10 (4-12) mmol/L BUN 19 (9-20) mg/dL Creatinine 0.87 (0.7-1.3) mg/dL Estim Creat Clear Calc 86 ml/min Estimated GFR > 60 (59 - ) Glucose 177 H (65-110) mg/dL Lactic Acid 1.5 (0.7-2.0) mmol/L Calcium 9.5 (8.4-10.2) mg/dL Total Bilirubin 0.8 (0.2-1.3) mg/dL AST 53 (17-59) U/L ALT 67 H (6-50) U/L Alkaline Phosphatase 79 (38-126) U/L Total Protein 7.9 (6.3-8.2) g/dL Albumin 4.5 (3.5-5.1) g/dL Lipase 151 (23-300) U/L Urine Color Yellow (Yellow) Urine Appearance Clear (Clear) Urine pH 5.5 (5.0-9.0) Ur Specific [place] 1.020 (1.001-1.035) Urine Protein Negative (Negative) mg/dL Urine Glucose (UA) 3+ H (Negative) mg/dL Urine Ketones Negative (Negative) mg/dL Ur Blood (Man) Negative (Negative) Urine Nitrate Negative (Negative) Urine Bilirubin Negative (Negative) Urine Urobilinogen 0.2 (<2.0) mg/dL Leukocyte Esterase Rfl Negative (Negative) SALLY/UL C. difficile (PCR) Negative (NEGATIVE) Discharge Plan Discharge Clinical Impression: Diarrhea Patient Disposition: Home Condition: Stable Instructions: Antibiotic Form, Clear Liquid Diet (ED), Acute Diarrhea (ED), Abdominal Pain (ED) Additional Instructions: Clear liquid diet for the next 3-5 days. Have close follow-up with your primary care physician. You have any worsening symptoms then please call or return to the emergency department. Discuss changing her Ozempic dose with your primary care physician. Patient Language: [place] Prescriptions: No Action ezetimibe 10 mg tablet 10 mg PO DAILY aspirin [Adult Aspirin Regimen] 81 mg tablet,delayed release (DR/EC) 81 mg PO DAILY azelastine 137 mcg (0.1 %) spray,non-aerosol 1 spray intranasal Q12H Rx Instructions: administer into each nostril Nexletol 180 mg tablet 180 mg PO DAILY Nitroglycerin 0.4 mg .Route .as PRN (Reason: chest pain) Rx Instructions: 0.4 mg PRN; as directed lisinopril 5 mg tablet 5 mg PO DAILY Farxiga 5 mg tablet 5 mg PO DAILY Qty: 90 3RF Ozempic 1 mg/dose (4 mg/3 mL) pen injector 1 mg subcut WEEKLY Qty: 3 1RF Patient Comments: Last dose is 11/19/[address] Reynolds cholecalciferol (vitamin D3) 100 mcg (4,000 unit) Tablet 100 mcg PO DAILY isosorbide mononitrate 30 mg tablet extended release 24 hr 30 mg PO DAILY metoprolol tartrate 50 mg tablet 50 mg PO BID fluticasone propionate [Flonase Allergy Relief] 50 mcg/actuation spray,suspension 1 - 2 spray intranasal BID Qty: 48 6RF Rx Instructions: administer into each nostril. Aim back/up/out omeprazole 20 mg capsule,delayed release(DR/EC) 20 mg PO DAILY Qty: 90 3RF (DME) OneTouch Verio test strips Strip See Rx Instructions .ROUTE .COMPLEX Qty: 200 2RF Dose Instruction: TEST TWICE DAILY DIRECTED Rx Instructions: TEST TWICE DAILY DIRECTED chlorhexidine gluconate [Hibiclens] 4 % liquid 1 applic topical ONCE Qty: 237 0RF Rx Instructions: Cleanse operative extremity, in shower, every day for 1 week prior to surgical procedure. Follow-up/Referrals: Celeste Ibanez APRN [Primary Care Provider, [facility]]
[2024-11-17 09:13] LABS: Alanine Aminotransferase 67 U/L (6-50); Albumin Level 4.5 g/dL (3.5-5.1); Alkaline Phosphatase 79 U/L (38-126); Anion Gap 10 mmol/L (4-12); Aspartate Amino Transferase 53 U/L (17-59); Bilirubin,Total 0.8 mg/dL (0.2-1.3); Blood Urea Nitrogen 19 mg/dL (9-20); Calcium 9.5 mg/dL (8.4-10.2); Carbon Dioxide 23 mmol/L (22-30); Chloride 103 mmol/L (98-107); Estimated CRCL calculation 86 ml/min; Estimated Glomerular Filt Rate > 60; Glucose 177 mg/dL (65-110); Potassium 4.2 mmol/L (3.4-5.0); Sodium 136 mmol/L (137-145); Total Protein 7.9 g/dL (6.3-8.2)
[2024-11-17 09:18] LABS: INR 1.1; Prothrombin Time 14.0 Seconds (11.1-14.7)
[2024-11-17 09:19] LABS: Partial Thromboplastin Time 30.9 Seconds (22.3-36.8)
[2024-11-17] MEDS: LACTATED RINGERS 1,000 ML 999 ML IV CONT (09:26)
[2024-11-17 09:29] LABS: Lipase 151 U/L (23-300)
[2024-11-17 09:51] VITALS: BP 131/78; PULSE 81; RESP 20; O2SAT 95
[2024-11-17 10:41] LABS: Add Urine Microscopic? NO; Appearance Urine Clear (Clear); Glucose Urine UA 3+ mg/dL (Negative); Leukocyte Esterase Ur Negative LEU/UL (Negative); Nitrate Urine Negative (Negative); Specific Grav Ur 1.020 (1.001-1.035)
[2024-11-17 11:03] VITALS: BP 141/91; PULSE 77; RESP 20; O2SAT 98
[2024-11-17 11:08] LABS: Toxigenic C. Diff NEGATIVE (NEGATIVE)
[2024-11-17 12:21] VITALS: BP 136/88; PULSE 84; RESP 16; O2SAT 98
== END 2024-11-17 12:22 | disposition home or self-care (01) ==
PROVIDERS: Emergency Provider Emergency Medicine; PCP Nurse Practitioner Adult Health
DX: R19.7 Diarrhea, unspecified (principal); R10.9 Unspecified abdominal pain; I10 Essential (primary) hypertension; E11.9 Type 2 diabetes mellitus without complications; E78.00 Pure hypercholesterolemia, unspecified; G47.33 Obstructive sleep apnea (adult) (pediatric); Z87.891 Personal history of nicotine dependence; Z79.82 Long term (current) use of aspirin; Z79.85 Long-term (current) use of injectable non-insulin antidiabetic drugs; Z79.899 Other long term (current) drug therapy
CPT/HCPCS: 36415; 80053; 81003; 83605; 83690; 85025; 85610; 85730; 87045; 87046; 87427; 87493; 96360; 99283; J7120

== ENCOUNTER 2024-11-18 09:59 | Outpatient (CLI) | payer MEDICARE, SELFPAY ==
--- NOTE | ~2024-11-18 | XR_ITS ---
XR abdomen/kub 1V 11/18/2024 10:12 INDICATION: Diarrhea TECHNIQUE: KUB COMPARISON: None FINDINGS: Bowel gas pattern is nonobstructive. There is no evidence of free air, mass, organomegaly, ascites or obstruction. No abnormal calculi are seen. The bones appear intact. There is a right total hip arthroplasty. There are pelvic phleboliths. IMPRESSION: 1: No acute abdominal abnormality identified. Reviewed, dictated and finalized at location O.
== END 2024-11-18 10:00 | disposition home or self-care (01) ==
PROVIDERS: PCP Nurse Practitioner Adult Health; Visit Provider Nurse Practitioner Adult Health
DX: R19.7 Diarrhea, unspecified (principal)
CPT/HCPCS: 74018

== ENCOUNTER 2024-11-26 00:54 | Day surgery (SDC) | payer MEDICARE, SELFPAY ==
[2024-11-13 14:16] VITALS: BP 115/66; PULSE 90; RESP 14; TEMP 36.9; O2SAT 96; BMI 35.6
--- NOTE | 2024-11-13 14:35 | PC.NURSE ---
Report to the Outpatient Waiting Room, entrance under the green pavilion located off [facility], at time __08:30am____ on date ___11/26/24____. Planned Procedure Time: __1030am .? Time changes happen often and if your time is changed the preop area will call you the afternoon before. - You and your visitor will be asked to self-screen and do not enter if you have any COVID symptoms. Please call surgeon if you need to reschedule. - A mask is optional within the hospital at this time. Patients may have clear liquids (water, carbonated beverages, clear teas, apple juice) until 3 hours prior to surgery with a maximum of 20 ounces. - No food from midnight until time of surgery and no smoking, or chewing tobacco (or any form of nicotine). No chewing gum, candy or mints. (0730am) Take only the following medications with a SIP of water on the morning of surgery: ___Isosorbide and Metoprolol DO NOT STOP ANY OF YOUR OTHER PRESCRIPTION MEDICATIONS PRIOR TO SURGERY EXCEPT THE FOLLOWING Hold all vitamins and supplements for 3 days per anesthesiologist. Date of last dose 11/22/24 Medications to discontinue per physician Ozempic for [address] Reynolds Date to take last dose____11/19/24 Please no make-up, nail german, hairspray, perfume, deodorant, or body powder the day of surgery.? No jewelry (including any body piercings) or valuables the day of surgery, leave them at home.? Please take a shower or bath the night before, or the morning of, surgery with an antibacterial soap. HIBICLEANSE SCRUB PER DR REYNOLDS. ? Wear comfortable, loose fitting clothing.?Bring overnight bag, CPAP, walker, Tennis shoes, Cell phone/Watershed Tender - Jewelry must be removed prior to entering the operating room.? Rings and piercings that are not removed may be cut off. - The hospital will not accept responsibility for valuables.? - Please leave all valuables, including medications, at home the day of surgery. If you are going home after surgery, a licensed tilt tray driver must drive you home.? - NO public transportation without another adult if you receive anesthesia. - We recommend that an adult stay with you for 24 hours following discharge. - We also recommend that you do not drive, make important decision, drink alcoholic beverages, or take any drugs that were not prescribed by your health care provider for at least 24 hours after your discharge time. Follow any additional instructions given to you from your surgeon. Telephone instructions given to __Patient and asked if any additional questions and then verbalized understanding. Patient advised to call surgeon office or pre surgery nurse liaison [phone] if any additional questions.
[2024-11-26] VITALS (17 sets, daily range): BP systolic 100–127; BP diastolic 51–72; PULSE 63–86; RESP 12–17; TEMP 36.4–36.9; O2SAT 92–98; BMI 34.9
--- NOTE | ~2024-11-26 | XR_ITS ---
EXAMINATION: [id number] DATE: 11/26/2024 12:38 INDICATION: Postoperative evaluation following right total knee arthroplasty. TECHNIQUE: Anteroposterior and lateral views of the right knee were obtained. COMPARISON: None. FINDINGS: Right total knee arthroplasty without patellar resurfacing appears well seated and in near anatomic alignment. No fractures identified. Expected postoperative subcutaneous and intra-articular gas. IMPRESSION: 1. Right total knee arthroplasty, negative for postoperative purposes. Reviewed, dictated and finalized at location A.
--- NOTE | 2024-11-26 07:18 | WPDHPUPDATE1 ---
History and Physical Update Update Date/Time: 11/26/24 07:18 History and Physical has been reviewed, including an updated exam of the patient. There are NO changes in the patient's condition. Risks, benefits, and alternatives have been discussed and questions answered. Patient agrees to proceed with procedure.
[2024-11-26] MEDS: LACTATED RINGERS 1,000 ML 30 ML IV CONT (09:25)
[2024-11-26] MEDS: ACETAMINOPHEN 500 MG TABLET 1000 MG PO (09:41)
[2024-11-26] MEDS: TRANEXAMIC ACID 1,000MG/ISO100 1,000 MG/100 ML BAG 200 MG IVPB (10:02)
--- NOTE | 2024-11-26 10:04 | WPDANESEPPF ---
Anes - Initial Pre Proc Eval Procedure: Operation Date: 11/26/24 10:30 Proposed Procedures p Right Total Knee Arthroplasty - Shoaib Reynolds MD Date/Time: 11/26/24 10:04 Surgeon: Shoaib Reynolds MD Pre Op Diagnosis: right knee djd Patient Data Age: 69 Gender: M Height: 1.75 m Weight: 109.5 kg Last Vital Signs Temp 36.9 C 11/13/24 14:16 Pulse 90 11/13/24 14:16 Resp 14 11/13/24 14:16 BP 115/66 11/13/24 14:16 Pulse Ox 96 11/13/24 14:16 O2 Del Method Room Air 11/13/24 14:16 Allergies Allergy/AdvReac Type Severity Reaction Status Date / Time Sulfa (Sulfonamide Allergy Intermediate Unknown Verified 11/26/24 09:55 Antibiotics) sulfamethoxazole (From Allergy Unknown Unknown Verified 11/26/24 09:55 Bactrim) trimethoprim (From Bactrim) Allergy Unknown Unknown Verified 11/26/24 09:55 [id number]-FTC-EpS Reductase AdvReac Intermediate Other Verified 11/26/24 09:55 Inhibitor Home Medications ?Medication ?Instructions ?Recorded ?Confirmed ?Type cholecalciferol (vitamin D3) 100 100 mcg PO DAILY 01/15/23 11/26/24 History mcg (4,000 unit) tablet isosorbide mononitrate 30 mg 30 mg PO DAILY 02/01/23 11/26/24 History tablet,extended release 24 hr metoprolol tartrate 50 mg tablet 50 mg PO BID 02/01/23 11/26/24 History aspirin 81 mg tablet,delayed 81 mg PO DAILY 06/25/23 11/26/24 History release (Adult Aspirin Regimen) ezetimibe 10 mg tablet 10 mg PO DAILY 07/25/23 11/26/24 History fluticasone propionate 50 1 - 2 spray intranasal BID #48 mL 01/16/24 11/26/24 Rx mcg/actuation nasal spray,suspension (Flonase Allergy Relief) Nitroglycerin 0.4 mg .Route .as PRN chest pain 01/29/24 11/18/24 History azelastine 137 mcg (0.1 %) nasal 1 spray intranasal Q12H 01/29/24 11/26/24 History spray bempedoic acid 180 mg tablet 180 mg PO DAILY 01/29/24 11/26/24 History (Nexletol) lisinopril 5 mg tablet 5 mg PO DAILY 01/29/24 11/26/24 History omeprazole 20 mg capsule,delayed 20 mg PO DAILY #90 caps 08/08/24 11/26/24 Rx release blood sugar diagnostic (OneTouch #200 strips 09/23/24 11/18/24 Rx Verio test strips) chlorhexidine gluconate 4 % 1 applic topical ONCE #237 mL 11/13/24 11/18/24 Rx topical liquid (Hibiclens) semaglutide 1 mg/dose (4 mg/3 mL) See Rx Instructions .Route 11/18/24 11/26/24 Rx subcutaneous pen injector (Ozempic) .COMPLEX #3 mL dapagliflozin propanediol 5 mg 5 mg PO DAILY #90 tabs 11/26/24 11/26/24 Rx tablet (Farxiga) Laboratory Tests 11/26/24 09:21 POC Capillary Glucose 124 H mg/dl (65-105) Patient hx anesthesia problems: none Family hx anesthesia problems: none Results Review: All pre-operative results and documents have been reviewed as part of the pre-operative evaluation. [facility] Past Medical History Medical History Dysphagia Hip replacement planned LAURA (obstructive sleep apnea) Hyperlipidemia HTN (hypertension) Diabetes Surgical History Surgical History History of arthroscopy of left knee History of carpal tunnel release of both wrists History of appendectomy Family History Family History Father Diabetes mellitus Heart disease Mother Diabetes mellitus Heart disease Sibling Diabetes mellitus Heart disease Social History Social History Social History: Currently lives at home with his . Surrogate decisionmaker: Swapnil Pereiraball, spouse. Code Status: Full Code. Smoking packs per day: 1 Smoking cigarettes per day: 20.0 Years smoked: 18 Smoking pack-years: 18.00 Smoking status: Former smoker Tobacco type: cigarettes and cigars Smoking end date: 03/19/90 Additional smoking assessment comments: Denies nicotine today, but smoked a cigar a few weeks ago Alcohol intake: current Drinks per week: 21 Alcohol use details: varies Substance use: never Substance use type: does not use Lack of Transportation: No Lack of Food: Never True Current Housing: I Have Housing Concerned About Future Housing: No Difficulty Paying Gas/Electric Bills: No Difficulty Paying for Meds: No Currently Unemployed: No Education: Associate Degree Difficulty w/ Childcare or Family Care: No Living arrangements: with family Additional living arrangements comments: Occupation/Education: retired Gender identity (if verbalized by the patient): Male Spiritual care concerns: No Agree to blood products: Yes Anes - Eval Final PreProcedure Day of Procedure 11/26/24 10:04 Patient weight: obese Heart: regular rate and rhythm Lungs: decreased breath sounds Airway: Mallampati scale class II Neurological: alert and oriented Last oral intake: >/= 8 hours ASA classification: III Emergent: no Anesthetic plan: proceed Anesthesia type and monitoring: general LMA and standard monitoring Results Review: All pre-operative results and documents have been reviewed as part of the pre-operative evaluation. Informed Consent: The patient's anesthetic plan and its attendant risks and benefits were discussed with the patient/family/POA. Questions were solicited and answers provided to the satisfaction of the patient/family/POA.
[2024-11-26] MEDS: ceFAZolin 2 GM in SODIUM CHLORIDE 0.9% IV 50 ML 100 ML IVPB ×2 (10:49→18:38)
[2024-11-26] MEDS: SODIUM CHLORIDE 0.9% IV 37.7 ML, MORPHINE SULFATE INJ (*CRX) 2 MG, ROPivacaine HCL 1% 2... INFILTRATE (10:49)
[2024-11-26] MEDS: TRANEXAMIC ACID 1,000 MG/10 ML AMPUL 1000 MG IV PUSH (11:26)
--- NOTE | 2024-11-26 12:45 | WPDANESPNB ---
Anes - Peripheral Nerve Block Date/Time: 11/26/24 12:45 I have discussed with the patient/family/POA the placement of a peripheral nerve block for post-operative pain management, including associated risks, benefits, complications, and side effects. Alternative methods of post-operative analgesia were detailed. Questions were solicited and answers provided to the satisfaction of the patient/family/POA. Time-Out: A pre-procedural Time-Out was completed immediately before starting the procedure and confirmed: Patient Identification, Site, Procedure, Patient Position and the Availability of Requisite Equipment. Clinical Indications: Acute post-operative pain management requested by the operative surgeon. Nerve Block Insertion Note Anes-nerve block: adductor canal right Patient position: supine Skin prep: chlorhexidine Needle: 22 gauge, stimulating, insulated echogenic needle. Needle length: 80 mm Technique: ultrasound Technique comment: done in pacu Injectate: bupivacaine 0.5% with epi 5 mcg/ml (30ml no epi) Observations: tolerated well Complications: none Procedure start time:: 1236 Procedure end time:: 1243
--- NOTE | 2024-11-26 12:48 | W.PM.PROC2 ---
Procedure Note - Detailed Date of Procedure 11/26/24 Pre-op Diagnosis right knee djd Post-op Diagnosis Same Procedure Performed R TKA Surgeon Shoaib Reynolds MD Anesthesia General Description of Procedure THE RIGHT KNEE WAS PREPPED AND DRAPED IN THE STERILE FASHION. THERE WAS A 10 DEGREE FLEXION CONTRACTURE. A MIDLINE SKIN INCISION WAS MADE. A MEDIAL PARAPATELLAR ARTHROTOMY WAS MADE. THE PATELLA WAS EVERTED. THERE WAS TRICOMPARTMENT DJD. THERE WAS MINIMAL PATELLA DJD. AN INTRAMEDULLARY RAY WAS PLACED IN THE FEMUR. A DISTAL FEMORAL CUT WAS MADE IN 5 DEGREES OF VALGUS REMOVING APPROXIMATELY 9 MM OF BONE FROM THE DISTAL FEMUR. THE FEMUR WAS SIZED TO 72.5. A 72.5 FEMORAL CUTTING BLOCK WAS PLACED IN 3 DEGREES OF EXTERNAL ROTATION AND IN ALIGNMENT WITH COLTEN'S LINE AND THE TRANSEPICONDYLAR AXIS. ANTERIOR POSTERIOR AND CHAMFER CUTS WERE MADE. THE CUTS WERE EXCELLENT. NEXT AN INTRAMEDULLARY CUTTING GUIDE WAS PLACED IN THE TIBIA. A TRANS TIBIAL CUT WAS MADE ALONG THE LONG AXIS OF THE TIBIA. APPROXIMATELY 10 MM OF BONE WAS REMOVED FROM THE HIGH SIDE OF THE TIBIA. THE TIBIA WAS THEN PLANED TO A SMOOTH SURFACE. POSTERIOR FEMORAL OSTEOPHYTES WERE REMOVED FROM THE FEMORAL CONDYLES. A 79 TIBIAL TRIAL WAS PLACED IN ALIGNMENT WITH THE 1/3 MEDIAL ASPECT OF THE TIBIAL TUBERCLE. THEN A 72.5 FEMORAL TRIAL COMPONENT WAS PLACED. BOTH HAD EXCELLENT FITS. EVENTUALLY A 10 MM CR POLYETHYLENE TRIAL COMPONENT WAS PLACED. THE KNEE WAS TAKEN THROUGH A RANGE OF MOTION. THE KNEE CAME OUT TO FULL EXTENSION. THERE WAS NO ABNORMAL TILT TO THE PATELLA. THERE WAS GOOD A/P AND VARUS/VALGUS STABILITY. THERE WAS NO EXCESSIVE ROLL BACK WITH FLEXION. THE TRIAL COMPONENTS WERE REMOVED. THEN A 72.5 FEMORAL COMPONENT AND 79 TIBIAL COMPONENT WITH A 10 CR POLYETHYLENE COMPONENT WERE CEMENTED INTO PLACE. ONCE THE CEMENT WAS HARD THE KNEE WAS TAKEN THROUGH A ROM AGAIN AND FOUND TO BE STABLE WITH NO PATELLA TILT NO EXCESSIVE ROLL BACK WITH FLEXION AND GOOD STABILITY WITH COMPLETE AND FULL EXTENSION. THE KNEE WAS IRRIGATED WITH STERILE BETADINE AND WATER FOR ABOUT 3 MINUTES. THE BLEEDERS WERE CAUTERIZED. THE ARTHROTOMY WAS REPAIRED WITH NUMBER 1 VICRYL. THE SUB CUTANEOUS LAYER WITH 2-0 VICRYL AND THE SKIN WITH 3-0 QUIL AND DERMABOND. THE WOUND WAS WASHED AND A STERILE DRESSING WAS APPLIED. PATIENT WAS EXTUBATED. Estimated Blood Loss -100 Pathology None sent Complications No immediate complications Condition Stable Disposition PACU
--- NOTE | 2024-11-26 13:53 | ADMGEN ---
This patient, Adal Talbot, was admitted to Medical Room 249-01. Patient/family oriented to hospital policies and general routines including ID bracelet, bed and alarms, visiting hours, pain management, procedures, bathroom and other care routines, personal items, smoking policy, room service/diet, and visiting hours. Information on how to activate the Rapid Response Team has been discussed. Patient/Family are encouraged to report perceived risks to care and to ask questions if they do not understand what they are told or what they should do.
[2024-11-26] MEDS: METOPROLOL TARTRATE 50 MG TAB PO (17:08)
[2024-11-26] MEDS: KETOROLAC 15 MG/ML VIAL (*BKC) IV PUSH (17:08)
[2024-11-26] MEDS: SENNA/DOCUSATE SODIUM TABLET 2 TAB PO (17:08)
[2024-11-26] MEDS: ASPIRIN 325 MG ENTERIC TABLET PO (20:30)
[2024-11-27 02:36] VITALS: PULSE 67; O2SAT 95
[2024-11-27 03:22] VITALS: BP 116/69; PULSE 66; RESP 16; TEMP 36.5; O2SAT 98
[2024-11-27] MEDS: ceFAZolin 2 GM in SODIUM CHLORIDE 0.9% IV 50 ML 100 ML IVPB ×2 (03:56→10:55)
[2024-11-27 04:54] LABS: Hematocrit 36.1 % (42.0-52.0); Hemoglobin 12.2 g/dL (14.0-18.0); Immature Granulocyte Percent A 0.7 % (0-0.5); Lymphocytes Absolute Auto 1.09 K/mm3 (0.9-3.2); Mean Corpuscular HGB Conc 33.8 g/dl (32-36); Mean Corpuscular Hemoglobin 33.5 pg (26-34); Mean Corpuscular Volume 99.2 fl (80-100); Nucleated Red Blood Cells Absolute Auto 0.000 K/mm3 (0.0-0.012); Nucleated Red Blood Cells Perc 0.0 % (0.0-0.2); Platelet Count Result 156 k/mm3 (150-375); Red Blood Count 3.64 M/mm3 (4.6-6.20); White Blood Count 8.2 K/mm3 (4.5-10.0)
[2024-11-27 05:08] LABS: Anion Gap 6 mmol/L (4-12); Blood Urea Nitrogen 21 mg/dL (9-20); Calcium 8.5 mg/dL (8.4-10.2); Carbon Dioxide 24 mmol/L (22-30); Chloride 104 mmol/L (98-107); Estimated CRCL calculation 94 ml/min; Estimated Glomerular Filt Rate > 60; Glucose 152 mg/dL (65-110); Potassium 4.3 mmol/L (3.4-5.0); Sodium 134 mmol/L (137-145)
[2024-11-27 07:22] VITALS: BP 122/64; PULSE 59; RESP 18; TEMP 36.3; O2SAT 97
[2024-11-27 08:38] VITALS: PULSE 65
[2024-11-27] MEDS: SENNA/DOCUSATE SODIUM TABLET 2 TAB PO (08:38)
[2024-11-27] MEDS: CHOLECALCIFEROL (VITAMIN D3) 25 MCG (1,000 UNITS) TABLET 100 MCG PO (08:38)
[2024-11-27] MEDS: METOPROLOL TARTRATE 50 MG TAB PO (08:38)
[2024-11-27] MEDS: PANTOPRAZOLE 40 MG TABLET PO (08:38)
[2024-11-27] MEDS: EMPAGLIFLOZIN 10 MG TABLET BY MOUTH (08:39)
[2024-11-27] MEDS: ASPIRIN 325 MG ENTERIC TABLET PO (08:39)
[2024-11-27] MEDS: EZETIMIBE 10 MG TABLET PO (08:39)
[2024-11-27] MEDS: ISOSORBIDE MONONITRATE 30 MG TAB.ER.24H PO (08:39)
--- NOTE | 2024-11-27 09:31 | PM.PNORT ---
Progress Note: A&P Assessment and Plan (1) S/P total knee arthroplasty: Qualifiers: Laterality: right Qualified Code(s): Z96.651 - Presence of right artificial knee joint Code(s): Z96.659 - Presence of unspecified artificial knee joint Status: Acute Assessment and Plan: POD #1 : Right TKA Continue PT/OT. WBAT. Walker. HIGH FALL RISK. Continue pain control. Ice Knee. Protect skin. DVT prophylaxis with Aspirin. SCDs. Incentive Spirometry Use reviewed. Monitor Dressing. Change prior to discharge. Bowel Regimen. Dispo: Home with Home Health pending progress with PT/OT Time Spent With Patient Time: Reviewed history, exam, radiographs and current labs with attending MD and covering surgeon, Dr. Reynolds, who agrees with current plan as indicated above. No further recommendations from Dr. Reynolds at this time. Subjective Subjective Date/Time Seen: 11/27/24 09:31 Post Op day: 1 Interval history: POD #1: Right TKA Patient doing very well. Pain well controlled. Hopeful for d/c home today. Working with OT at time of exam. Review of Systems Review of Systems: All systems reviewed & are unremarkable except as noted in HPI and below Constitutional: Constitutional: Denies fever(s) and Denies headache(s) ENT: Denies headache(s) Cardiovascular: Cardiovascular: Denies chest pain, Denies diaphoresis, Denies palpitations and Denies dyspnea Respiratory: Respiratory: Denies dyspnea Gastrointestinal: Gastrointestinal: Denies abdominal pain, Denies constipation, Denies nausea and Denies vomiting Genitourinary: Genitourinary: Denies dysuria and Reports nocturia Musculoskeletal: Musculoskeletal: Reports arthralgias (Right Knee ) and Reports joint swelling (Right Knee ) Neurologic: Denies headache(s) Endocrine: Endocrine: Denies palpitations Exam Const: General: comfortable and no acute distress Resp: Effort & Inspection: normal respiratory effort Cardio: Rate: regular rate Rhythm: regular rhythm GI: GI Palp: Yes Soft to palpation, No Tenderness to palpation present (GI) and No Guarding due to palpation present (GI) Skin: General skin exam: wounds noted Wounds: wounds noted Other: Incision c/d/i. No surrounding redness/warmth. No hematoma. Mild ecchymosis. No wound dehiscence Neuro: Cognition (Neuro): normal cognition Other: NV intact aside from block. Moves toes. Sensation intact to light touch. +ankle dorsiflexion/plantarflexion. Extrem: Right lower extremity: normal to inspection, knee Details: tenderness (diffuse, mild ) Location: of the patella, swelling (diffuse, consistent with surgical intervention ), abnormal ROM Details: pain with active ROM during, pain with passive ROM during and with range as follows (limited due to recent surgical intervention ); able to extend lower leg actively and ecchymosis (mild ), lower leg (Negative Edgard's Sign ) Details: normal to inspection; no erythema and no tenderness, ankle (+ankle dorsiflexion/plantarflexion ) Details: normal to inspection, no edema and normal ROM; no tenderness, no swelling and no ecchymosis and foot Details: normal capillary refill, normal to inspection, vascular exam Details: dorsalis pedis pulse present and motor-sensory exam Details: light-touch normal; no tenderness Psych: Mental Status: mental status grossly normal Objective Data Vital Signs Vital Signs: Vital Signs - 24 hr 11/26/24 10:05 11/26/24 12:30 11/26/24 12:45 Temperature 36.4 C 36.5 C Pulse Rate 63 86 80 Respiratory Rate 16 14 12 Blood Pressure 118/69 127/70 112/61 Pulse Oximetry 97 96 96 Oxygen Delivery Simple Face Mask Simple Face Mask Oxygen Flow Rate 8 8 11/26/24 12:52 11/26/24 13:00 11/26/24 13:15 Temperature Pulse Rate 73 72 Respiratory Rate 12 12 Blood Pressure 114/64 116/64 Pulse Oximetry 92 94 94 Oxygen Delivery Nasal Cannula Nasal Cannula Nasal Cannula Oxygen Flow Rate 2 2 2 11/26/24 13:30 11/26/24 13:51 11/26/24 14:10 Temperature 36.8 C 36.8 C Pulse Rate 71 71 70 Respiratory Rate 12 16 16 Blood Pressure 111/60 100/51 L 107/66 Pulse Oximetry 96 97 96 Oxygen Delivery Nasal Cannula Oxygen Flow Rate 2 11/26/24 14:15 11/26/24 15:10 11/26/24 15:38 Temperature 36.7 C Pulse Rate 80 Respiratory Rate 16 Blood Pressure 118/68 Pulse Oximetry 96 96 Oxygen Delivery Nasal Cannula Room Air Oxygen Flow Rate 2 11/26/24 16:30 11/26/24 17:08 11/26/24 19:22 Temperature 36.9 C Pulse Rate 80 63 Respiratory Rate 16 Blood Pressure 104/63 Pulse Oximetry 98 95 Oxygen Delivery Room Air Oxygen Flow Rate 11/26/24 20:00 11/26/24 23:13 11/26/24 23:19 Temperature 36.7 C Pulse Rate 77 73 Respiratory Rate 17 Blood Pressure 117/72 Pulse Oximetry 95 96 96 Oxygen Delivery Room Air Room Air Oxygen Flow Rate 11/27/24 02:36 11/27/24 03:22 11/27/24 07:22 Temperature 36.5 C 36.3 C L Pulse Rate 67 66 59 L Respiratory Rate 16 18 Blood Pressure 116/69 122/64 Pulse Oximetry 95 98 97 Oxygen Delivery Oxygen Flow Rate 11/27/24 08:38 11/27/24 08:40 Temperature Pulse Rate 65 Respiratory Rate Blood Pressure Pulse Oximetry Oxygen Delivery Room Air Oxygen Flow Rate Intake/Output Intake/Output: Intake & Output 11/24/24 11/25/24 11/26/24 11/27/24 23:59 23:59 23:59 23:59 Intake Total 1320 290 Balance 1320 290 Meds/Results Medications: Active Medications Generic Name Dose Route Start Last Admin Trade Name Freq PRN Reason Stop Dose Admin Acetaminophen 500 mg 11/26/24 13:37 Acetaminophen 500 Mg Tablet PO Q6H PRN Pain Rated 1-3 Aspirin 325 mg 11/26/24 21:00 11/27/24 08:39 Aspirin 325 Mg Enteric Tablet PO 325 mg Q12HR [facility] Administration Dextrose 12.5 gm 11/26/24 17:20 Dextrose 50% 25 Gm/50 Ml Syringe IV PUSH PRN PRN Hypoglycemia Protocol Diazepam 5 mg 11/26/24 13:37 Diazepam (*Crx) 5 Mg Tablet PO Q8H PRN Spasms Diphenhydramine HCl 25 mg 11/26/24 13:37 Diphenhydramine Hcl Inj 50 Mg/Ml Vial IV PUSH Q6H PRN Itching Ezetimibe 10 mg 11/27/24 09:00 11/27/24 08:39 Ezetimibe 10 Mg Tablet PO 10 mg DAILY [facility] Administration Empagliflozin 10 mg 11/27/24 09:00 11/27/24 08:39 Empagliflozin 10 Mg Tablet BY MOUTH 10 mg DAILY [facility] Administration Glucagon 1 mg 11/26/24 17:20 Glucagon For Inj 1 Mg Vial IM PRN PRN Hypoglycemia Protocol Glucose 15 gm 11/26/24 17:20 Glucose Oral Gel 15 Gm Of Glucse In 37.5 Gm Tube PO PRN PRN Hypoglycemia Protocol Hydromorphone HCl 1 mg 11/26/24 13:37 Hydromorphone Hcl Inj (*Crx) 1 Mg/Ml Syr IV PUSH Q2H PRN Breakthrough Pain Rated 7-10 or NPO Hydromorphone HCl 0.5 mg 11/26/24 13:37 Hydromorphone Hcl Inj (*Crx) 1 Mg/Ml Syr IV PUSH Q2H PRN Breakthrough Pain Rated 4-6 or NPO Cefazolin Sodium 2 gm/ Sodium 50 mls @ 100 mls/hr 11/26/24 19:00 11/27/24 04:26 Chloride IVPB 11/27/24 11:29 Infused Q8H [facility] Infusion Ibuprofen 800 mg in 200 mls @ 400 mls/hr 11/26/24 13:37 Caldolor 800 Mg/200 Ml IVPB Q6H PRN Breakthrough Pain Rated 1-3 or NPO Dextrose 1,000 mls @ 100 mls/hr 11/26/24 17:20 Dextrose 5% 1,000 Ml IVPB PRN PRN Hypoglycemia Protocol Insulin Aspart 1 - 2 units 11/26/24 21:00 11/26/24 20:31 Insulin Aspart (*Bkc) 100 Units/Ml SUB-Q Not Given HS [facility] Protocol Insulin Aspart 2 - 5 units 11/27/24 08:00 11/27/24 07:42 Insulin Aspart (*Bkc) 100 Units/Ml SUB-Q Not Given TIDWM [facility] Protocol Isosorbide Mononitrate 30 mg 11/27/24 09:00 11/27/24 08:39 Isosorbide Mononitrate 30 Mg Tab.Er.24h PO 30 mg DAILY [facility] Administration Ketorolac Tromethamine 15 mg 11/26/24 13:37 11/27/24 06:38 Ketorolac 15 Mg/Ml Vial (*Bkc) IV PUSH 11/27/24 12:01 Not Given Q6HR [facility] Lisinopril 5 mg 11/27/24 09:00 11/27/24 08:38 Lisinopril 5 Mg Tablet PO 5 mg DAILY [facility] Administration Metoprolol Tartrate 50 mg 11/26/24 17:00 11/27/24 08:38 Metoprolol Tartrate 50 Mg Tab PO 50 mg BID [facility] Administration Naloxone HCl 0.1 mg 11/26/24 13:37 Naloxone Hcl 0.4 Mg/Ml Vial IV PUSH Q2M PRN Opiate Reversal Nitroglycerin 0.4 mg 11/26/24 13:57 Nitroglycerin Sl 0.4 Mg Tablet SUBLINGUAL Q5MIN PRN Chest Pain Ondansetron HCl 4 mg 11/26/24 13:37 Ondansetron Inj 4 Mg/2 Ml Vial IV PUSH Q4H PRN Nausea And Vomiting Oxycodone/Acetaminophen 1 tablet 11/26/24 13:37 Oxycodone/Acetaminophen (*Crx) 5-325 Mg Tablet PO Q4H PRN Pain Rated 4-6 Oxycodone/Acetaminophen 1 tab 11/26/24 13:37 Oxycodone/Acetaminophen (*Crx) 10-325 Mg Tablet PO Q6H PRN Pain Rated 7-10 Pantoprazole Sodium 40 mg 11/27/24 09:00 11/27/24 08:38 Pantoprazole 40 Mg Tablet PO 40 mg QAM [facility] Administration Polyethylene Glycol 17 gm 11/27/24 09:00 11/27/24 08:39 Polyethylene Glycol 3350 17 Gm Powd.Pack PO 17 gm QAM [facility] Administration Senna/Docusate Sodium 2 tab 11/26/24 17:00 11/27/24 08:38 Senna/Docusate Sodium Tablet PO 2 tab BID [facility] Administration Vitamin D 100 mcg 11/27/24 09:00 11/27/24 08:38 Cholecalciferol (Vitamin D3) 25 Mcg (1,000 Units) Tablet PO 100 mcg DAILY [facility] Administration Radiology Results: ITS Impressions Knee X-Ray 11/26/24 12:41 IMPRESSION: 1. Right total knee arthroplasty, negative for postoperative purposes. Labs Labs: Laboratory Results - last 24 hr 11/26/24 11/26/24 11/26/24 12:35 16:57 20:28 WBC RBC Hgb Hct MCV MCH MCHC RDW Plt Count MPV Immature Gran % (Auto) Neut % (Auto) Lymph % (Auto) [place] % (Auto) Eos % (Auto) Baso % (Auto) Lymph # (Auto) [place] # (Auto) Eos # (Auto) Baso # (Auto) Abs Immat Gran (auto) Absolute Neuts (auto) Absolute Nucleated RBC Nucleated RBC % Sodium Potassium Chloride Carbon Dioxide Anion Gap BUN Creatinine Estim Creat Clear Calc Estimated GFR Glucose POC Capillary Glucose 158 H 232 H 198 H Calcium 11/27/24 11/27/24 04:21 07:19 WBC 8.2 RBC 3.64 L Hgb 12.2 L Hct 36.1 L MCV 99.2 MCH 33.5 MCHC 33.8 RDW 12.7 Plt Count 156 MPV 9.3 Immature Gran % (Auto) 0.7 H Neut % (Auto) 79.2 H Lymph % (Auto) 13.3 L [place] % (Auto) 6.6 Eos % (Auto) 0.1 Baso % (Auto) 0.1 L Lymph # (Auto) 1.09 [place] # (Auto) 0.5 Eos # (Auto) 0.0 Baso # (Auto) 0.0 Abs Immat Gran (auto) 0.06 H Absolute Neuts (auto) 6.5 Absolute Nucleated RBC 0.000 Nucleated RBC % 0.0 Sodium 134 L Potassium 4.3 Chloride 104 Carbon Dioxide 24 Anion Gap 6 BUN 21 H Creatinine 0.79 Estim Creat Clear Calc 94 Estimated GFR > 60 Glucose 152 H POC Capillary Glucose 135 H Calcium 8.5 Quality VTE Prophylaxis VTE prophylaxis: pharmacologic ordered
[2024-11-27] MEDS: oxyCODONE/ACETAMINOPHEN (*CRX) 10-325 MG TABLET 1 TAB PO (10:54)
[2024-11-27 11:22] VITALS: BP 102/56; PULSE 65; RESP 16; TEMP 36.6; O2SAT 98
== END 2024-11-27 15:00 | disposition home health service (06) ==
LOC: ANHSURGERY 08:30 → ANH2MED 13:39
PROVIDERS: PCP Nurse Practitioner Adult Health; Visit Provider Orthopaedic Surgery
PROC: (CPT 27447; principal; 2024-11-26 10:30)
DX: M17.11 Unilateral primary osteoarthritis, right knee (principal); G89.29 Other chronic pain; G89.18 Other acute postprocedural pain; E78.5 Hyperlipidemia, unspecified; I10 Essential (primary) hypertension; E11.9 Type 2 diabetes mellitus without complications; G47.33 Obstructive sleep apnea (adult) (pediatric); F17.290 Nicotine dependence, other tobacco product, uncomplicated; E66.9 Obesity, unspecified; Z68.35 Body mass index [BMI] 35.0-35.9, adult; Z79.82 Long term (current) use of aspirin; Z79.84 Long term (current) use of oral hypoglycemic drugs; Z79.85 Long-term (current) use of injectable non-insulin antidiabetic drugs; Z98.890 Other specified postprocedural states; Z82.49 Family history of ischemic heart disease and other diseases of the circulatory system
CPT/HCPCS: 64447; 27447; 36415; 73560; 80048; 82948; 85025; 97110; 97161; 97165; 97530; 97535; J0690; A9270; C1713; C1776; J0166; J1100; J1885; J2250; J2270; J2371; J2405; J2704; J2795; J3010; J3373; J7120